=== PATIENT | male | born 1975 | race Caucasian/White ===

== ENCOUNTER 2020-02-20 03:12 | Inpatient (IN) | payer MEDICAID, SELFPAY ==
[2020-02-20] VITALS (17 sets, daily range): BP systolic 101–132; BP diastolic 61–77
[~2020-02-20] VITALS: Ht 182.9 cm; Wt 105.5 kg
[~2020-02-20 03:12] MED LIST: SYNT100T PO; SYNT25TA PO; ZYPR1TAB4 PO
[2020-02-20] MEDS ORDERED: LEVO125T4 PO (03:29)
[2020-02-20] MEDS ORDERED: ONDANSETRON 4MG/2ML VIAL IV ONE (03:30)
[2020-02-20] MEDS ORDERED: NS 1,000 ML IV ONE ×2 (03:30→04:30)
[2020-02-20] MEDS: MORPHINE 4 MG/ML 1ML VIAL/SYRINGE (J2270) IV PRN ×2 (03:33→04:04)
[2020-02-20 03:36] LABS: VENOUS BASE EXCESS -28.1 (-2.0-2.0); VENOUS O2 SATURATION 67.3 % (60.0-80.0); VENOUS PARTIAL PRESSURE CO2 21.3 mmHg (38.0-50.0); VENOUS STANDARD HCO3 5.5 MEQ/L; VENOUS TOTAL CO2 4.6 MEQ/L (24.0-28.0)
[2020-02-20 03:42] LABS: BASO # 0.2 10^3/uL (0.0-0.2); BASO % 0.6 % (0.0-1.0); EOS % 0.1 % (0.0-3.0); HEMATOCRIT 43.3 % (42.0-52.0); HEMOGLOBIN 13.3 g/dl (13.5-17.5); LYMPH # 1.6 10^3/uL (1.5-5.0); LYMPH % 6.1 % (24.0-44.0); MEAN CORPUSCULAR HGB CONC 30.7 g/dl (32.0-36.5); MEAN CORPUSCULAR VOLUME 94.5 fl (80.0-96.0); MONO # 2.2 10^3/uL (0.0-0.8); MONO % 8.6 % (0.0-5.0); NEUTROPHILS # 20.3 10^3/uL (1.5-8.5); NEUTROPHILS % 80.4 % (36.0-66.0); PLATELET COUNT, AUTOMATED 388 10^3/uL (150-450); RED BLOOD COUNT 4.58 10^6/uL (4.30-6.10); WHITE BLOOD COUNT 25.3 10^3/uL (4.0-10.0)
[2020-02-20 04:03] LABS: HEMOGLOBIN A1c 13.7 %
[2020-02-20 04:15] LABS: OSMOLALITY SERUM 333 MOSM/KG (275-295)
[2020-02-20 04:31] LABS: AMPHETAMINES LEVEL URINE NEGATIVE (NEGATIVE); BARBITURATES URINE NEGATIVE (NEGATIVE); BENZODIAZEPINES URINE NEGATIVE (NEGATIVE); CANNABINOIDS URINE NEGATIVE (NEGATIVE); COCAINE METABOLITE URINE NEGATIVE (NEGATIVE); METHADONE URINE NEGATIVE (NEGATIVE); OPIATES URINE NEGATIVE (NEGATIVE); PHENCYCLIDINE URINE NEGATIVE (NEGATIVE)
[2020-02-20 04:34] LABS: ALBUMIN 2.3 GM/DL (3.2-5.2); ALT/SGPT 15 U/L (12-78); BILIRUBIN,DIRECT 0.1 MG/DL (0.0-0.2); BILIRUBIN,TOTAL 0.4 MG/DL (0.2-1.0); BLOOD UREA NITROGEN 20 MG/DL (7-18); CARBON DIOXIDE LEVEL 6 MEQ/L (21-32); CHLORIDE LEVEL 105 MEQ/L (98-107); FREE T4 1.72 NG/DL (0.76-1.46); GLOMERULAR FILTRATION RATE > 60.0 (>60); LIPASE 689 U/L (73-393); SODIUM LEVEL 139 MEQ/L (136-145); TOTAL PROTEIN 4.7 GM/DL (6.4-8.2)
[2020-02-20 04:36] LABS: ACETONE/KETONE > 46.00 MG/DL (<2.81); CALCIUM LEVEL 5.9 MG/DL (8.5-10.1); ETHYL ALCOHOL (ETHANOL) < 0.003 % (0.000-0.010); GLUCOSE, FASTING 722 MG/DL (70-100)
[2020-02-20] MEDS ORDERED: KCL 10MEQ/100ML SWI (KRUN) 10 MEQ in IV 1 EA IV ONE (04:45)
[2020-02-20] MEDS ORDERED: POTASSIUM CHLORIDE 10 MEQ SR TABLET PO ONE (04:45)
[2020-02-20 04:46] LABS: MAGNESIUM LEVEL 1.6 MG/DL (1.8-2.4)
[2020-02-20] MEDS ORDERED: OLAN10TA2 PO (04:52)
[2020-02-20] MEDS ORDERED: med rec comment (04:54)
[2020-02-20] MEDS ORDERED: LORazepam 2 MG/ML VIAL (J2060) IV PRN (05:00)
[2020-02-20] MEDS ORDERED: MAG SULF 1GM/100ML (MAG RUN) 1 GM in IV 1 EA IV ONE (05:00)
--- NOTE | 2020-02-20 05:24 | IPNPDOC ---
Text Note Date of Service The patient was seen on 02/20/20. NOTE TIME OF SERVICE 610AM Mr. Prescott is a 43 yr old M w a PMH of alcohol abuse, hypothyroidism and Schizophrenia who is admitted for management of DKA. Vital Signs Date Time Temp Pulse Resp B/P (MAP) Pulse Ox O2 Delivery O2 Flow Rate FiO2 02/20/20 05:00 112/64 (80) 02/20/20 04:57 126 30 98 Room Air 02/20/20 04:18 97.2 I&O- Last 24 Hours up to 6 AM 02/20/20 06:00 Intake Total 2000 ml Balance 2000 ml Laboratory Tests 02/20/20 03:19 1. DKA Likely 2/2 new onset DM Plan: admit to ICU /NPO / will hold off starting Insulin drip until repeat BMP confirms K is above 3.3 / bc pH is <6.9 will start with 0.45 NS w K and bicarb @ a rate of 250ml per H / f/u blood cx / f/u accuchecks Q1H, BMP Q4H, venous PH Q4H, osmol Q4H, Mag Q4H, phosp Q4H / f/u A1C 2.SIRS Likely reactive -HR >90 /WBC >12 / RR >20 Plan: telemetry / Sepsis protocol w lactic acid/ no / IVF /f/u COVID 19, blood cx 3. Transaminitis Plan: trend LFTs / f/u liver US and hep panel 4. Hypothyroidism Plan: f/u TSH 5. Pseudohypocalcemia Ionized ca++ wnl. rest per 's H&P ALEXEY GUTIÉRREZ MD February 20, 2020 05:24
[2020-02-20] MEDS ORDERED: SODIUM BICARBONATE IV SCH ×2 (06:00)
[2020-02-20] MEDS ORDERED: [UNRECOGNIZED DRUG - OTHER] IV SCH ×2 (06:00)
[2020-02-20] MEDS ORDERED: KCL IV SCH ×2 (06:00)
[2020-02-20 06:22] LABS: VENOUS BASE EXCESS -26.1 (-2.0-2.0); VENOUS HCO3 5.8 MEQ/L (23.0-27.0); VENOUS O2 SATURATION 63.9 % (60.0-80.0); VENOUS PARTIAL PRESSURE CO2 28.9 mmHg (38.0-50.0); VENOUS PARTIAL PRESSURE O2 45.8 mmHg (30.0-50.0); VENOUS STANDARD HCO3 6.9 MEQ/L; VENOUS TOTAL CO2 6.7 MEQ/L (24.0-28.0)
[2020-02-20 06:36] LABS: INR 1.2; PARTIAL THROMBOPLASTIN TIME 25.8 SECONDS (25.0-38.4); PROTHROMBIN TIME 14.9 SECONDS (11.8-14.0)
[2020-02-20 08:09] LABS: BLOOD UREA NITROGEN 27 MG/DL (7-18); CALCIUM LEVEL 8.6 MG/DL (8.5-10.1); CARBON DIOXIDE LEVEL 8 MEQ/L (21-32); CHLORIDE LEVEL 92 MEQ/L (98-107); CREATININE FOR GFR 1.74 MG/DL (0.70-1.30); GLOMERULAR FILTRATION RATE 45.4 (>60); GLUCOSE, FASTING 930 MG/DL (70-100); POTASSIUM SERUM 5.6 MEQ/L (3.5-5.1); SODIUM LEVEL 130 MEQ/L (136-145); THYROID STIMULATING HORMONE 0.014 uIU/ML (0.358-3.740)
--- NOTE | 2020-02-20 08:09 | HPEPDOC ---
[facility] Medical History & Physical Date of Admission February 20, 2020 Date of Service: February 20, 2020 Attending Physician: ALEXEY GUTIÉRREZ MD History and Physical CHIEF COMPLAINT: Shortness of breath HISTORY OF PRESENT ILLNESS: Vladislav is a 44-year-old male with PMHx of hypothyroidism (on Synthroid) and significant mental illness with psychoses, who presented to the ED by EMS with the chief complaint of shortness of breath. The patient reports having 5 episodes of nonbloody emesis earlier in the overnight period, followed by progressively worsening shortness of breath to the point where he called 911. He states he's never had shortness of breath like this before and denies any known respiratory conditions. He denies any recent travel, changes in medications, changes in diet, or exposure to sick contacts. According to the ED, when EMS arrived at his home, he initially refused to be taken to the hospital and made multiple attempts to get himself off the gurney. Upon arrival to the ED, he was still relatively fidgety and using profanities. EMS reported his home to be in quite a disheveled state, with lots of spiders and strewn empty 2 L bottles of Coke. Currently he endorses associated increased work of breathing, chills, palpitations, lightheadedness without syncope, and moderate "burning" with his last few bowel movements. Repeatedly throughout the exam, he requested "copious amounts of physical water" and made mention to his career as a [employer] and associations with the [employer]. In the ED, he was found to be in diabetic ketoacidosis: vbg pH 6.89, PCO2 21.3, HCO3 52, anion gap 28, beta hydroxybutyrate greater than 46, lactic acid 5.4, A1c 13.7, serum osmolality 333, sGlu 722. He also had multiple electrolyte abnormalities: Potassium 3.0, calcium 5.9 (corrected calcium 7.4), magnesium 1.6. He had leukocytosis with normocytic anemia, along with other assorted metabolic abnormalities. He received one IV run each of KCl and mag sulfate, with oral KCl, along with two 1L NS boluses. Due to his significantly depressed potassium, insulin drip was deferred. He reports following with a PCP named Dr. Mihir Peña for whom we were unable to find any records. He has NKDA. PAST MEDICAL HISTORY: Hypothyroidism, on Synthroid Unspecified long history of mental illness with psychoses PAST SURGICAL HISTORY: Tonsillectomy SOCIAL HISTORY: Lives alone and according to previous records is the father of a 12-year-old son who lives with the son's mother in [place]. 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 Records indicate he reported being former ([employer]). Denies any current alcohol use but does endorse being a former social drinker. Denies any current or former tobacco use. Endorses former marijuana use in his 20s, as well as 5-6 times where he snorted cocaine. FAMILY HISTORY: Father: History of multiple MIs with associated unspecified heart disease ALLERGIES: Please see below. REVIEW OF SYSTEMS: CONSTITUTIONAL: Endorses chills and lightheadedness. Denies recent unintentional weight change, fever, weakness HEENT: Endorses chronic nasal congestion. Denies diplopia, blurry vision, eye pain, ear pain, tinnitus, dysphagia, odynophagia, sore throat, rhinorrhea CARDIOVASCULAR: Endorses palpitations. Denies chest pain, chest pressure, lower extremity swelling RESPIRATORY: Endorses shortness of breath that progressively worsened earlier today; endorses increased work of breathing. Denies pleuritic chest pain or cough GASTROINTESTINAL: Endorses 5 earlier episodes today of nonbloody emesis but denies feeling nauseous now; endorses "burning" sensation with recent bowel movements; endorses intermittent recent diarrhea. Denies abdominal pain or blood in the stool GENITOURINARY:. Denies dysuria or hematuria MUSCULOSKELETAL: Denies specific myalgias or arthralgias NEUROLOGICAL: Endorses lightheadedness. Denies dizziness, difficulty concentrating, numbness or paresthesias of extremities PSYCHIATRIC: Denies any recent significant change in mood or behavior ENDOCRINE: Endorses chills HOME MEDICATIONS: Please see below. PHYSICAL EXAMINATION: VITAL SIGNS: Temperature 97.2, pulse 122, respiratory rate 32, blood pressure 146/77, pulse oximetry 100 % on room air. GENERAL APPEARANCE: Disheveled and unkempt, obese male. Multiple times throughout exam, spoke of fanciful work and personal connections, as well as demanding drinking water. Prominent acetone-like aroma particularly from his breath. Alert and oriented 3. Sitting up in bed breathing relatively quickly. Appears older than stated age. HEENT: Normocephalic, atraumatic with areas of yellow dandruff/seborrheic dermatitis-appearing on scalp. Bilateral proptosis (right greater than left) with injected, nonicteric sclera. No conjunctival pallor. PERRLA. EOMI. Poor dentition with dry mucous membranes and crusting on tongue surface. Acetone breath. No pharyngeal erythema or exudate appreciated. No cervical or supraclavicular lymphadenopathy appreciated. Trachea is midline. CARDIOVASCULAR: Tachycardic rate, regular rhythm. +S1,S2., No murmurs or rubs appreciated. 2+ radial and posterior tibial pulses bilaterally. 3+ seconds capillary refill. LUNGS: Clear to auscultation bilaterally with no appreciated wheezes, crackles, or rhonchi. Tachypneic, able to slow his breathing when prompted. Symmetric chest expansion. Adequate tidal volume. Speaking full sentences. Breathing room air. ABDOMEN: Obese, soft, nontender, nondistended with no rigidity or guarding. Normoactive bowel sounds in all four quadrants. MUSCULOSKELETAL: 5/5 muscle strength UE and LE, b/l. EXTREMITIES: Lower extremities are free of edema. Delayed capillary refill. SKIN: Cool to the touch, especially hands. NEUROLOGICAL: Awake, alert and oriented to person, place, time, and situation. Cranial nerves III through XII grossly intact. Adequate finger to nose testing. For the most part responded to exam commands appropriately. PSYCHIATRIC: Had multiple instances throughout the exam where he spoke of fanciful entities concerning work and personal connections. Repeatedly requested "copious amounts of physical water" to drink. LABORATORY DATA: Please see below. IMAGING: Portable chest x-ray, 02/20/20: MICROBIOLOGY: Please see below. ASSESSMENT & PLAN: This is a 44-year-old male with PMHx of hypothyroidism on synthroid and a long history of mental illness with psychoses who presented to the emergency department via EMS in DKA and extensive electrolyte abnormalities. #Diabetic ketoacidosis -VBG: PH 6.89, PCO2 21.3, HCO3 52, anion gap 28, hydroxybutyrate > 46, sOsm 333 -sGlu 722, A1c 13.7; sK 3.0; UA 2+ ketones, 3+ Glu, 1+ Pro -most likely 2/2 newly diagnosed DM -s/p two 1L NS boluses -Insulin drip initially held due to low sK (3.0); once sK is 3.3 or greater, initiate 1/2NS w/ K and bicarbonate at 250mL/hr -NPO -f/u fsbs -BMP q4h, venous pH q4h, sOsm q4h, Phosphorus q4h, Mg q4h -f/u A1c -seizure protocol initiated #High anion gap metabolic acidosis 2/2 DKA #Positive SIRS criteria -tachypnea + leukocytosis + tachycardia; likely reactive to significant dka/met acidosis -WBC 25.3; Lactic acid 5.4 -s/p two 1L NS boluses -sepsis protocol -2 BCx pending #Normocytic microchromic anemia -Hgb 13.3, MCV 94.5, MCHC 30.7 #Multiple electrolyte abnormalities -Hypokalemia (3.0), hypomagnesemia (1.6), pseudohypocalcemia (sCa 5.9, corrected Ca 7.7, ionized Ca wnl) -s/p IV and PO KCl and IV Mag sulfate #Hypothyroidism -TSH 0.01, fT4 1.72 -reports taking his synthroid medication regularly as prescribed #Transaminitis -hepatitis and liver u/s ordered -f/u LFTs -elevated lipase (689) #Psychosocial issues -Significant history of mental illness with psychoses, without documented distinct diagnosis -Suggest PFS and psychiatric consultations once active medical problems resolve #DVT prophylaxis: Lovenox SC Disposition: Admit to intensive care unit for immediate DKA treatment, with consideration of eventual workup/treatment for psychosocial issues. Vital Signs Vital Signs Date Time Temp Pulse Resp B/P (MAP) Pulse Ox O2 Delivery O2 Flow Rate FiO2 02/20/20 05:46 117/57 (77) 02/20/20 05:45 125 24 99 Room Air 02/20/20 04:18 97.2 Laboratory Data Labs 24H Laboratory Tests 2 02/20/20 03:19: Immature Granulocyte % (Auto) 4.2H, Neutrophils (%) (Auto) 80.4H, Lymphocytes (%) (Auto) 6.1L, Monocytes (%) (Auto) 8.6H, Eosinophils (%) (Auto) 0.1, Basophil s (%) (Auto) 0.6, Neutrophils # (Auto) 20.3H, Lymphocytes # (Auto) 1.6, Monocytes # (Auto) 2.2H, Eosinophils # (Auto) 0.0, Basophils # (Auto) 0.2, Nucleated Red Blood Cells % (auto) 0.0, Blood Gas Bicarbonate Standard 5.5, Venous Blood pH 6.890L, Venous Blood Partial Pressure CO2 21.3L, Venous Blood Partial Pressure O2 52.0H, Venous Blood Total Carbon Dioxide 4.6L, Venous Blood HCO3 4.0L, Venous Blood Oxygen Saturation 67.3, Venous Blood Base Excess -28.1L, Anion Gap 28H, Glomerular Filtration Rate > 60.0, Estimated Mean Plasma Glucose 346H, Hemoglobin A1c 13.7, Osmolality 333H, Lactic Acid Level 5.4*H, Calcium Level 5.9*L, Magnesium Level 1.6L, Total Bilirubin 0.4, Direct Bilirubin 0.1, Aspartate Amino Transf (AST/SGOT) 6L, Alanine Aminotransferase (ALT/SGPT) 15, Alkaline Phosphatase 78, Total Protein 4.7L, Albumin 2.3L, Albumin/Globulin Ratio 0.96L, Lipase 689H, Thyroid Stimulating Hormone (TSH) 0.010L, Free Thyroxine 1.72H, Ethyl Alcohol Level < 0.003, B-Hydroxybutyrate > 46.00H 02/20/20 03:57: Urine Color STRAW, Urine Appearance CLEAR, Urine pH 5.0, Urine Specific [place] 1.022, Urine Protein 1+H, Urine Glucose (UA) 3+H, Urine Ketones 2+H, Urine Blood 1+H, Urine Nitrite NEGATIVE, Urine Bilirubin NEGATIVE, Urine Urobilinogen 0.2, Urine Leukocyte Esterase NEGATIVE, Urine WBC (Auto) 1, Urine RBC (Auto) 1, Urine Hyaline Casts (Auto) 0, Urine Bacteria (Auto) NEGATIVE, Urine Squamous Epithelial Cells 0, Urine Mucus (Auto) SMALL, Urine Sperm (Auto) , Urine Opiates Screen NEGATIVE, Urine Methadone Screen NEGATIVE, Urine Barbiturates Screen NEGATIVE, Urine Phencyclidine Screen NEGATIVE, Urine Amphetamines Screen NEGATIVE, Urine Benzodiazepines Screen NEGATIVE, Urine Cocaine Metabolite Screen NEGATIVE, Urine Cannabinoids Screen NEGATIVE 02/20/20 05:55: 02/20/20 06:15: CBC/BMP Laboratory Tests 02/20/20 03:19 Microbiology Microbiology 02/20/20 Blood Culture, Received Pending Home Medications Scheduled Levothyroxine Sodium (Levothyroxine Sodium) 125 Mcg Tablet, 125 MCG PO DAILY Olanzapine (Olanzapine) 10 Mg Tablet, 10 MG PO DAILY Miscellaneous Medications [med rec comment] unable to verify phamracy of choice or last dosage on olanzepine, patient was to short of breath to speak Allergies Coded Allergies: No Known Allergies (Verified , 06/24/12) A-FIB/CHADSVASC A-FIB History Current/History of A-Fib/PAF?: No Current PO Anticoag Therapy: No GME ATTESTATION GME ATTESTATION My faculty preceptor for this patient encounter was physically present during the encounter and was fully available. All aspects of the patient interview, examination, medical decision making process, and medical care plan development were reviewed and approved by the faculty preceptor. The faculty preceptor is aware and concurs with the plan as stated in the body of this note and will attest to such by his/her cosignature. ATTENDING NOTE I examined the patient for additional details please see my addendum dated 02/20/20 KATRINA BESS D.O. February 20, 2020 08:09 ALEXEY GUTIÉRREZ MD February 21, 2020 06:58
[2020-02-20 08:12] LABS: VENOUS BASE EXCESS -24.5 (-2.0-2.0); VENOUS HCO3 5.6 MEQ/L (23.0-27.0); VENOUS PARTIAL PRESSURE CO2 23.6 mmHg (38.0-50.0); VENOUS PARTIAL PRESSURE O2 45.1 mmHg (30.0-50.0); VENOUS PH 6.996 UNITS (7.330-7.430); VENOUS STANDARD HCO3 7.7 MEQ/L; VENOUS TOTAL CO2 6.4 MEQ/L (24.0-28.0)
[2020-02-20] MEDS ORDERED: SODIUM BICARBONATE 8.4% INJ 50 ML SYRINGE IV STA ×3 (08:44→12:21)
[2020-02-20] MEDS: NS 1,000 ML IV SCH ×2 (08:58→17:59)
[2020-02-20 08:59] LABS: CALCIUM LEVEL 8.2 MG/DL (8.5-10.1); CREATININE FOR GFR 1.79 MG/DL (0.70-1.30); GLOMERULAR FILTRATION RATE 43.9 (>60); MAGNESIUM LEVEL 2.7 MG/DL (1.8-2.4); PHOSPHORUS LEVEL 7.8 MG/DL (2.5-4.9); POTASSIUM SERUM 6.1 MEQ/L (3.5-5.1)
[2020-02-20] MEDS: ENOXAPARIN 40MG/0.4ML SYRINGE (J1650 PER 10MG) SC SCH (09:04)
--- NOTE | 2020-02-20 09:26 | REP ---
CHEST: REASON: Dyspnea. FINDINGS: The technique utilized in obtaining the radiograph has magnified the cardiac silhouette and accentuated the interstitial markings. The superior mediastinal structures are midline. The cardiac silhouette is unremarkable in size, shape, and position. The diaphragmatic surfaces of the lungs are regular, and the costophrenic angles are clear. The pulmonary gallegos are clear. The imaged osseous structures are intact. IMPRESSION: There is no acute cardiopulmonary disease. Electronically Signed by Matt Alberto DO 02/20/2020 10:37 A
--- NOTE | 2020-02-20 09:50 | ECGEPIP ---
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 Electronically Signed on 02-20-2020 9:49:55 EDT by Jose De Jesus Davis
[2020-02-20] MEDS ORDERED: SODIUM BICARBONATE 150 MEQ in D5W 1,000 ML IV SCH (10:00)
[2020-02-20] MEDS: INSULIN HUMAN REGULAR 100 UNITS in NS 99 ML IV SCH ×2 (10:06→20:16)
[2020-02-20] MEDS: INSULIN IV RATE CHANGE DOCUMENTATION ML/HR XX SCH ×9 (10:20→23:05)
--- NOTE | 2020-02-20 10:30 | REP ---
REASON FOR EXAM: Elevated liver enzymes. PRIORS: None. Multiple ultrasonographic images of the liver show the hepatic parenchymal echopattern to be within normal limits. There are no cystic or solid masses. There is no intrahepatic or extrahepatic ductal dilatation. The common bile duct measures between 4 and 5 mm in its greatest transverse dimension. Multiple ultrasonographic images of the gallbladder show no abnormalities. There are no choleliths. There is no pericholecystic edema. There is no gallbladder wall thickening. The imaged portion of the pancreas and right kidney are within normal limits. There is no free fluid in the right upper quadrant. IMPRESSION: Negative right upper quadrant ultrasound examination. Electronically Signed by Matt Alberto DO 02/20/2020 11:27 A
[2020-02-20 11:23] LABS: VENOUS BASE EXCESS -22.8 (-2.0-2.0); VENOUS HCO3 4.6 MEQ/L (23.0-27.0); VENOUS O2 SATURATION 88.5 % (60.0-80.0); VENOUS PARTIAL PRESSURE CO2 15.1 mmHg (38.0-50.0); VENOUS PARTIAL PRESSURE O2 66.2 mmHg (30.0-50.0); VENOUS PH 7.099 UNITS (7.330-7.430); VENOUS STANDARD HCO3 8.8 MEQ/L
[2020-02-20] MEDS ORDERED: LORazepam 2 MG/ML VIAL (J2060) IV STA (11:45)
[2020-02-20] MEDS ORDERED: LORazepam 2 MG/ML VIAL (J2060) As Ordered ONE (11:50)
[2020-02-20 12:04] LABS: CALCIUM LEVEL 9.1 MG/DL (8.5-10.1); CREATININE FOR GFR 1.57 MG/DL (0.70-1.30); GLOMERULAR FILTRATION RATE 51.1 (>60); MAGNESIUM LEVEL 2.7 MG/DL (1.8-2.4); PHOSPHORUS LEVEL 3.4 MG/DL (2.5-4.9); POTASSIUM SERUM 5.7 MEQ/L (3.5-5.1)
--- NOTE | 2020-02-20 12:20 | IPNPDOC ---
Date Seen The patient was seen on 02/20/20. Progress Note SUBJECTIVE: Potassium elevated at 5.6 and later 6.1, potassium and bicarb supplemented IVFs stopped. Bicarbonate defict 720. Pushed three 50 mg amp bicarb, started on bicarb fluids and NS fluids at 100 cc/hr. ANA worsened on repeat labs this AM. Phos and magnesium were elevated, monitoring closely. Patient had increased agitation and was given 2 mg IV ativan x 1 at 11:45 AM. Q4 hr labs, Q2 hr ABG. Patient confused, denies pain. OBJECTIVE: VITAL SIGNS: please see below PHYSICAL EXAMINATION: GENERAL APPEARANCE: Awake, alert but agitated and confused. Oriented x 1 HEENT: NC/AT, bilateral proptosis (right greater than left) with injected, nonicteric sclera. PERRLA. EOMI. Poor dentition, dry mucous membranes.Trachea is midline. CARDIOVASCULAR: Tachycardic rate, regular rhythm. +S1,S2., No murmurs or rubs LUNGS: CTAB, no w/r/r. Tachypneic ABDOMEN: Obese, soft, nontender, nondistended with no rigidity or guarding. Normoactive bowel sounds in all four quadrants. MUSCULOSKELETAL: 5/5 muscle strength UE and LE, b/l. EXTREMITIES: Lower extremities are free of edema. SKIN: Warm, poor skin turgor, no noticeable lesions, ulcers NEUROLOGICAL: Cranial nerves III through XII grossly intact. No focal deficits. LABORATORY DATA: Please see below. IMAGING: CXR: There is no acute cardiopulmonary disease. Liver US: Negative right upper quadrant ultrasound examination. MICROBIOLOGY: BCx pending UA neg ASSESSMENT: 44 y/o M male treating for AMS likely 2/2 to severe diabetic ketoa cidosis, dehydration, multiple electrolyte abnormality, questionable pancreatitis. PLAN: 1. Diabetic ketoacidosis (DKA), severe. Unknown underlying infection at this time, new DM diagnosis. AG metabolic acidosis. HbA1c >13. ABG showing slow improvement with addition of insulin gtt. S/p one amps bicarb but will give another two, last labs show bicarb still low at 6. C/w bicarbonate gtt for now. Normal saline at 100 cc/hr- when stop bicarb gtt then increase fluids. Q4 hr BMP, mag, phos with Q2hr ABG for now. Supplement electrolytes PRN. Q1hr finger sticks. 2. Altered mental status 2/2 to DKA, perhaps complicated by underlying mental health issues. C/w treatment above. 3. SIRS +. Abnormal VS and acidosis could just be from DKA; however, elevated lipase without abdominal pain, no CT done on admission cannot r/o pancreatitis as source of infection. Will complete CT when patient is stable to be taken to CT. UA neg, CXR neg, blood cultures pending. For now, c/w IVFs and treatment above. Holding off on empiric abx. 4. Acute kidney injury likely 2/2 to dehydration, prerenal etiology. C/w IVFs, monitor labs closely, avoid nephrotoxic medications. 5. Hyperkalemia likely 2/2 to KCL and potassium supplemented IVFs, ANA. Stopped these, start insulin gtt and will monitor closely on telemetry. 6. Hyperphosphatemia. 7.8 initially now 3.4. Monitor with Q4hr labs. 7. Pseudohypocalcemia. Corrected with albumin to 7.7. F/u CMP in AM. 8. Hypomagnesemia. Initially 1.6, supplemented and now 2.7 (H). F/u Q4hrs. 9. Pseudohyponatremia. Blood sugar 930 on arrival to ICU, corrected sodium 143. C/w NSS. 10. Lactic acidosis 2/2 to DKA. Improving with hydration slowly with most recent 3.1 from 5.4. F/u next labs in afternoon. 11. Normocytic microchromic anemia. No signs of acute bleeding. Monitor CBC daily. 12. Hyperthyroidism likely synthroid induced. Hx of hypothyroidism. TSH 0.010, possibly being overmedicated or taking more than prescribed? Holding for now, f/u FT4, T3 and decrease dose by 25 mcg when resuming medications. 13. Unspecified psychosis disorder. Unable to properly assess with acute mental status changes described above. 14 . DVT px. Lovenox SC. Disposition: C/w treatment above under ICU care. TOTAL AMOUNT OF ICU TIME SPENT: 65 MINS VS, I&O, 24H, Fishbone Vital Signs/I&O Vital Signs Date Time Temp Pulse Resp B/P (MAP) Pulse Ox O2 Delivery O2 Flow Rate FiO2 02/20/20 09:45 126 32 123/71 (88) 92 02/20/20 07:53 98.6 02/20/20 06:47 Room Air I&O- Last 24 Hours up to 6 AM 02/20/20 06:00 Intake Total 2200 ml Balance 2200 ml Laboratory Data 24H LABS Laboratory Tests 2 02/20/20 03:19: Immature Granulocyte % (Auto) 4.2H, Neutrophils (%) (Auto) 80.4H, Lymphocytes (%) (Auto) 6.1L, Monocytes (%) (Auto) 8.6H, Eosinophils (%) (Auto) 0.1, Basophils (%) (Auto) 0.6, Neutrophils # (Auto) 20.3H, Lymphocytes # (Auto) 1.6, Monocytes # (Auto) 2.2H, Eosinophils # (Auto) 0.0, Basophils # (Auto) 0.2, Nucleated Red Blood Cells % (auto) 0.0, Blood Gas Bicarbonate Standard 5.5, Ve nous Blood pH 6.890L, Venous Blood Partial Pressure CO2 21.3L, Venous Blood Partial Pressure O2 52.0H, Venous Blood Total Carbon Dioxide 4.6L, Venous Blood HCO3 4.0L, Venous Blood Oxygen Saturation 67.3, Venous Blood Base Excess -28.1L, Anion Gap 28H, Glomerular Filtration Rate > 60.0, Estimated Mean Plasma Glucose 346H, Hemoglobin A1c 13.7, Osmolality 333H, Lactic Acid Level 5.4*H, Calcium Level 5.9*L, Magnesium Level 1.6L, Total Bilirubin 0.4, Direct Bilirubin 0.1, Aspartate Amino Transf (AST/SGOT) 6L, Alanine Aminotransferase (ALT/SGPT) 15, Alkaline Phosphatase 78, Total Protein 4.7L, Albumin 2.3L, Albumin/Globulin Ratio 0.96L, Lipase 689H, Thyroid Stimulating Hormone (TSH) 0.010L, Free T hyroxine 1.72H, Ethyl Alcohol Level < 0.003, B-Hydroxybutyrate > 46.00H 02/20/20 03:57: Urine Color STRAW, Urine Appearance CLEAR, Urine pH 5.0, Urine Specific Platter 1.022, Urine Protein 1+H, Urine Glucose (UA) 3+H, Urine Ketones 2+H, Urine Blood 1+H, Urine Nitrite NEGATIVE, Urine Bilirubin NEGATIVE, Urine Urobilinogen 0.2, Urine Leukocyte Esterase NEGATIVE, Urine WBC (Auto) 1, Urine RBC (Auto) 1, Urine Hyaline Casts (Auto) 0, Urine Bacteria (Auto) NEGATIVE, Urine Squamous Epithelial Cells 0, Urine Mucus (Auto) SMALL, Urine Sperm (Auto) , Urine Opiates Screen NEGATIVE, Urine Methadone Screen NEGATIVE, Urine Barbiturates Screen NEGATIVE, Urine Phencyclidine Screen NEGATIVE, Urine Amphetamines Screen NEGATIVE, Urine Benzodiazepines Screen NEGATIVE, Urine Cocaine Metabolite Screen NEGATIVE, Urine Cannabinoids Screen NEGATIVE 02/20/20 05:55: Coronavirus (COVID-19)(PCR) NEGATIVE 02/20/20 06:15: Blood Gas Bicarbonate Standard 6.9, Venous Blood pH 6.920L, Venous Blood Partial Pressure CO2 28.9L, Venous Blood Partial Pressure O2 45.8, Venous Blood Total Carbon Dioxide 6.7L, Venous Blood HCO3 5.8L, Venous Blood Oxygen Saturation 63.9, Venous Blood Base Excess -26.1L, Anion Gap 30H, Glomerular Filtration Rate 45.4L, Calcium Level 8.6#, Thyroid Stimulating Hormone (TSH) 0.014L, Prothrombin Time 14.9H, Prothromb Time International Ratio 1.20, Activated Partial Thromboplast Time 25.8, Whole Blood Ionized Calcium 4.6 02/20/20 08:03: Blood Gas Puncture Site UNKNOWN, Blood Gas Bicarbonate Standard 7.7, Venous Blood pH 6.996L, Venous Blood Partial Pressure CO2 23.6L, Venous Blood Partial Pressure O2 45.1, Venous Blood Total Carbon Dioxide 6.4L, Venous Blood HCO3 5.6L, Venous Blood Oxygen Saturation 69.0, Venous Blood Base Excess -24.5L, Anion Gap 28H, Glomerular Filtration Rate 43.9L, Osmolality 348H, Calcium Level 8.2L, Phosphorus Level 7.8H, Magnesium Level 2.7H 02/20/20 10:13: Lactic Acid Followup at 4 Hours 3.1*H 02/20/20 10:14: Bedside Glucose Confirm (Misc) 721*H 02/20/20 11:15: Blood Gas Puncture Site UNKNOWN, Blood Gas Bicarbonate Standard 8.8, Venous Blood pH 7.099L, Venous Blood Partial Pressure CO2 15.1L, Venous Blood Partial Pressure O2 66.2H, Venous Blood Total Carbon Dioxide 5.0L, Venous Blood HCO3 4.6L, Venous Blood Oxygen Saturation 88.5H, Venous Blood Base Excess -22.8L CBC/BMP Laboratory Tests 02/20/20 03:19 02/20/20 06:15 02/20/20 08:03 Microbiology Microbiology 02/20/20 Blood Culture, Received Pending Current Medications Current Medications Medications (Trade) Dose Ordered Sig/Galina Route PRN Reason Start Time Stop Time Status Last Admin Dose Admin Enoxaparin Sodium (Lovenox) 40 mg DAILY SC 02/20/20 09:00 02/20/20 09:04 Home Med (Med Rec Complete!) ASDIRECTED XX 02/20/20 05:00 02/20/20 05:05 DC Insulin Human Regular 100 units/ Sodium Chloride 100 ml @ 10 mls/hr Q10H IV 02/20/20 10:00 02/20/20 10:06 Lorazepam (Ativan) 2 mg Q2HP PRN IV SEIZURES 02/20/20 05:00 Lorazepam (Ativan) 2 mg STAT STAT IV 02/20/20 11:45 02/20/20 11:46 DC 02/20/20 11:52 Morphine Sulfate (Morphine Sulfate Inj) 4 mg Q30M PRN IV SEVERE PAIN (PS 8-10) 02/20/20 03:30 02/20/20 04:05 DC 02/20/20 04:04 Non-Formulary Medication (Insulin Iv Rate Change Documentation ml/ Hr) ASDIRECTED XX 02/20/20 08:30 03/21/20 08:29 02/20/20 10:20 Sodium Bicarbonate 100 meq/Potassium Chloride/Sodium Chloride 1,100 ml @ 250 mls/hr Q4H24M IV 02/20/20 06:00 02/20/20 08:43 DC 02/20/20 06:12 Sodium Bicarbonate 150 meq/Dextrose/Water 1,150 ml @ 100 mls/hr [id number] IV 02/20/20 10:00 02/20/20 10:19 Sodium Bicarbonate (Sodium Bicarbonate) 50 meq STAT STAT IV 02/20/20 08:44 02/20/20 08:45 DC 02/20/20 08:57 Sodium Bicarbonate (Sodium Bicarbonate) 50 meq STAT STAT IV 02/20/20 12:21 02/20/20 12:24 DC Sodium Bicarbonate (Sodium Bicarbonate) 50 meq STAT STAT IV 02/20/20 12:21 02/20/20 12:24 DC Sodium Chloride 1,000 ml @ 100 mls/hr Q10H IV 02/20/20 09:00 02/20/20 08:58 Allergies Coded Allergies: No Known Allergies (Verified , 06/24/12) Zelda Prado MD February 20, 2020 12:20
[2020-02-20 13:25] LABS: ABG BASE EXCESS -14.9 (-2.0-2.0); ABG HCO3 7.4 MEQ/L (22.0-26.0); ABG O2 SATURATION 97.4 % (95.0-99.0); ABG PARTIAL PRESSURE O2 89.2 mmHg (75.0-100.0); ABG STANDARD HCO3 13.4 MEQ/L (22.0-26.0); ABG TOTAL CO2 7.8 MEQ/L (22.0-29.0); ABG pH (ARTERIAL) 7.345 UNITS (7.350-7.450)
[2020-02-20 13:28] LABS: ABG PARTIAL PRESSURE CO2 13.9 mmHg (35.0-45.0)
[2020-02-20 15:44] LABS: ABG HCO3 15.7 MEQ/L (22.0-26.0); ABG O2 SATURATION 97.3 % (95.0-99.0); ABG PARTIAL PRESSURE CO2 25.6 mmHg (35.0-45.0); ABG PARTIAL PRESSURE O2 87.9 mmHg (75.0-100.0); ABG STANDARD HCO3 18.8 MEQ/L (22.0-26.0); ABG TOTAL CO2 16.5 MEQ/L (22.0-29.0); ABG pH (ARTERIAL) 7.405 UNITS (7.350-7.450)
[2020-02-20 16:13] LABS: CALCIUM LEVEL 8.8 MG/DL (8.5-10.1); CREATININE FOR GFR 1.52 MG/DL (0.70-1.30); GLOMERULAR FILTRATION RATE 53.1 (>60); MAGNESIUM LEVEL 2.4 MG/DL (1.8-2.4); PHOSPHORUS LEVEL 0.7 MG/DL (2.5-4.9); POTASSIUM SERUM 3.8 MEQ/L (3.5-5.1)
[2020-02-20] MEDS ORDERED: POTASSIUM PHOSPHATE INJ 30 MMOL in D5W 500 ML IV ONE (18:00)
[2020-02-20 20:00] LABS: CALCIUM LEVEL 8.7 MG/DL (8.5-10.1); CREATININE FOR GFR 1.43 MG/DL (0.70-1.30); GLOMERULAR FILTRATION RATE 56.9 (>60); MAGNESIUM LEVEL 2.3 MG/DL (1.8-2.4); PHOSPHORUS LEVEL 0.7 MG/DL (2.5-4.9); POTASSIUM SERUM 3.7 MEQ/L (3.5-5.1)
[2020-02-20] MEDS: POTASSIUM CHLORIDE INJ 30 MEQ in D5W/0.45% SODIUM CHLORIDE 1,000 ML IV SCH (20:25)
[2020-02-20 21:16] LABS: ABG HCO3 21.7 MEQ/L (22.0-26.0); ABG O2 SATURATION 95.6 % (95.0-99.0); ABG PARTIAL PRESSURE CO2 34.3 mmHg (35.0-45.0); ABG PARTIAL PRESSURE O2 72.6 mmHg (75.0-100.0); ABG STANDARD HCO3 22.7 MEQ/L (22.0-26.0); ABG TOTAL CO2 22.8 MEQ/L (22.0-29.0); ABG pH (ARTERIAL) 7.419 UNITS (7.350-7.450)
[2020-02-20 23:46] LABS: OSMOLALITY SERUM 326 MOSM/KG (275-295)
[2020-02-21] VITALS (14 sets, daily range): BP systolic 90–130; BP diastolic 55–79
[2020-02-21 00:01] LABS: BLOOD UREA NITROGEN 20 MG/DL (7-18); CALCIUM LEVEL 8.3 MG/DL (8.5-10.1); CARBON DIOXIDE LEVEL 25 MEQ/L (21-32); CHLORIDE LEVEL 114 MEQ/L (98-107); GLOMERULAR FILTRATION RATE > 60.0 (>60); GLUCOSE, FASTING 186 MG/DL (70-100); MAGNESIUM LEVEL 2.2 MG/DL (1.8-2.4); PHOSPHORUS LEVEL 1.2 MG/DL (2.5-4.9); POTASSIUM SERUM 3.9 MEQ/L (3.5-5.1); SODIUM LEVEL 148 MEQ/L (136-145)
[2020-02-21] MEDS: POTASSIUM CHLORIDE INJ 30 MEQ in D5W/0.45% SODIUM CHLORIDE 1,000 ML IV SCH ×2 (00:21→04:12)
[2020-02-21] MEDS: LEVEMIR (INSULIN DETEMIR) 1 UNITS/0.01ML SC SCH ×2 (03:05→20:27)
[2020-02-21 03:52] LABS: BASO % 0.1 % (0.0-1.0); HEMATOCRIT 38.6 % (42.0-52.0); HEMOGLOBIN 13.2 g/dl (13.5-17.5); LYMPH % 5.2 % (24.0-44.0); MEAN CORPUSCULAR HEMOGLOBIN 28.9 pg (27.0-33.0); MEAN CORPUSCULAR HGB CONC 34.2 g/dl (32.0-36.5); MEAN CORPUSCULAR VOLUME 84.5 fl (80.0-96.0); MONO # 2.5 10^3/uL (0.0-0.8); MONO % 13.5 % (0.0-5.0); NEUTROPHILS % 80.7 % (36.0-66.0); PLATELET COUNT, AUTOMATED 307 10^3/uL (150-450); RED BLOOD COUNT 4.57 10^6/uL (4.30-6.10); WHITE BLOOD COUNT 18.5 10^3/uL (4.0-10.0)
[2020-02-21 05:50] LABS: BLOOD UREA NITROGEN 17 MG/DL (7-18); CALCIUM LEVEL 8.1 MG/DL (8.5-10.1); CARBON DIOXIDE LEVEL 24 MEQ/L (21-32); CHLORIDE LEVEL 114 MEQ/L (98-107); CREATININE FOR GFR 1.15 MG/DL (0.70-1.30); GLOMERULAR FILTRATION RATE > 60.0 (>60); GLUCOSE, FASTING 206 MG/DL (70-100); PHOSPHORUS LEVEL 1.4 MG/DL (2.5-4.9); POTASSIUM SERUM 3.8 MEQ/L (3.5-5.1); SODIUM LEVEL 145 MEQ/L (136-145)
[2020-02-21 06:06] LABS: ALT/SGPT 17 U/L (12-78); BILIRUBIN,TOTAL 0.5 MG/DL (0.2-1.0); TOTAL PROTEIN 5.8 GM/DL (6.4-8.2)
[2020-02-21 06:07] LABS: ALBUMIN 2.8 GM/DL (3.2-5.2)
[2020-02-21] MEDS ORDERED: ISOVUE-370 76% 100ML VIAL As Ordered ONE (08:12)
[2020-02-21] MEDS: K-PHOS ORIGINAL (POT.ACID PHOSPHATE) 500MG TAB PO SCH ×2 (09:18→20:26)
[2020-02-21] MEDS: ENOXAPARIN 40MG/0.4ML SYRINGE (J1650 PER 10MG) SC SCH (09:19)
[2020-02-21] MEDS: HumaLOG INSULIN (NovoLOG) PER UNIT SC SCH ×4 (09:19→20:28)
--- NOTE | 2020-02-21 09:33 | REP ---
REASON: Abdominal pain. PRIORS: None. CONTRAST: 100 mL Isovue 370. The lung bases are clear. The liver, gallbladder, spleen, pancreas, and adrenal glands are within normal limits. In the superior pole of the right kidney, there is a round 2 cm sized low density structure, which has slightly higher than water density Hounsfield unit readings. In the left kidney interpolar region anteriorly, there is a similar finding but measuring less than 1 cm, somewhat difficult to evaluate due to its size and secondary to respiratory motion artifact. In the inferior pole of the left kidney, there is an additional similar finding, which measures 1.3 cm, this too has somewhat higher than density water density Hounsfield unit readings but is also difficult to evaluate due to motion artifact. The abdominal aorta and paraaortic regions are within normal limits. The intra-abdominal and intrapelvic bowel loops and their mesenteries are within normal limits. No free fluid or free air is seen in the abdomen or pelvis. There is no intra-abdominal or intrapelvic mass or adenopathy. Bone window technique throughout the examination shows the osseous structures to be within normal limits for the patient's age. IMPRESSION: Likely bilateral renal cysts as described above. There is no evidence of acute intra-abdominal or intrapelvic disease. Electronically Signed by Matt Alberto DO 02/21/2020 10:10 A
[2020-02-21] MEDS: LEVOTHYROXINE 100MCG TABLET (0.1MG) PO SCH (10:00)
[2020-02-21] MEDS: OLANZapine 10 MG TAB PO SCH (10:01)
[2020-02-21 10:05] LABS: HEPATITIS B SURFACE ANTIGEN NEGATIVE (NEGATIVE)
[2020-02-21 10:21] LABS: PTH INTACT 23.6 PG/ML (18.5-88.0); TOTAL 25(OH) VITAMIN D 18.2 NG/ML (30.0-100.0)
[2020-02-21 10:33] LABS: HEPATITIS B CORE ANTIBODY IGM NEGATIVE (NEGATIVE)
[2020-02-21 10:37] LABS: HEPATITIS A ANTIBODY IGM NEGATIVE (NEGATIVE)
[2020-02-21] MEDS ORDERED: POTASSIUM PHOSPHATE INJ 15 MMOL in D5W 250 ML IV ONE (11:00)
[2020-02-21 12:20] LABS: LIPASE 59 U/L (73-393)
--- NOTE | 2020-02-21 12:26 | IPNPDOC ---
Date Seen The patient was seen on 02/21/20. Progress Note SUBJECTIVE: Phosphorus was still low this morning and is currently being replaced. CT abdomen and pelvis with IV contrast was done to rule out pancreatitis and it shows no acute intra-abdominal abdomen allergies. The patient was transitioned off of an insulin drip over the evening and we'll begin subcutaneous Levemir daily, insulin sliding scale with meals and consistent carb diet this morning. He has an overall flat affect and appears weak but is alert and oriented 3, denies chest pain, shortness of breath, fevers, chills, nausea or vomiting. OBJECTIVE: VITAL SIGNS: please see below PHYSICAL EXAMINATION: GENERAL APPEARANCE: Sitting up in bed, awake alert oriented 3 HEENT: NC/AT, bilateral proptosis (right greater than left) PERRLA. EOMI. Poor dentition CARDIOVASCULAR: Rate and rhythm regular. +S1,S2., No murmurs or rubs LUNGS: CTAB, no w/r/r. ABDOMEN: Obese, soft, nontender, nondistended with no rigidity or guarding. Normoactive bowel sounds in all four quadrants. MUSCULOSKELETAL: 5/5 muscle strength UE and LE, b/l. EXTREMITIES: Lower extremities are free of edema. SKIN: Warm, normal skin turgor, no noticeable lesions, ulcers NEUROLOGICAL: Cranial nerves III through XII grossly intact. No focal deficits. LABORATORY DATA: Please see below. IMAGING: CT abdomen and pelvis with IV contrast: Likely bilateral renal cysts as described above. There is no evidence of acute intra-abdominal or intrapelvic disease. MICROBIOLOGY: BCx 1 set: No growth Blood cultures 2 sets: Drawn, pending results UA neg ASSESSMENT: 44 y/o M male treating for AMS likely 2/2 to severe diabetic ketoacidosis, dehydration, multiple electrolyte abnormalities. PLAN: 1. Diabetic ketoacidosis (DKA), severe- resolved. Diabetes mellitus type 2, uncontrolled is a new diagnosis. At this time not suspicious for underlying infection, awaiting blood culture results however. HbA1c >13. Continue with levemir QAM, insulin sliding scale, consistent carbohydrate diet. Patient will need education by prosthodontist/educator for this diagnosis, education by nursing for fingersticks and insulin administration. Patient will also need glucometer, lancets, alcohol swabs and test strips on discharge as well. He would also benefit from being set up with an histology teacher as outpatient prior to [facility] if possible. 2. Altered mental status 2/2 to DKA. Resolved. Sitter DC'd. 3. SIRS +. F/u blood cx. CT abd/pelvis, UA and CXR neg. If blood cx neg, abnormal VS, leukocytosis likely 2/2 to DKA. Lactic now wnl. C/w IVFs and treatment above. 4. Hypophosphatemia. 1.4 this AM. Started on K phos 500 PO BID and given 15 MMOL potassium phosphate IV in addition. F/u noon labs. 5. Acute kidney injury likely 2/2 to dehydration. Resolved. Improved with IVFs. 6. Hyperkalemia likely 2/2 to KCL and potassium supplemented IVFs, ANA. Resolved. 7. Hypomagnesemia. Resolved. 8. Lactic acidosis 2/2 to DKA.- Resolved. 9. Normocytic microchromic anemia. No signs of acute bleeding. Monitor CBC d aily. 10. Hyperthyroidism likely synthroid induced. Hx of hypothyroidism. TSH 0.010. Started on levothyroxine at lowered dose. 11. Unspecified psychosis disorder. Stable. 12 . DVT px. Lovenox SC. Disposition: Discharging from ICU today to med/surg with telemetery. TOTAL AMOUNT OF ICU TIME SPENT: 35 MINS VS, I&O, 24H, [facility] Vital Signs/I&O Vital Signs Date Time Temp Pulse Resp B/P (MAP) Pulse Ox O2 Delivery O2 Flow Rate FiO2 02/21/20 08:00 99.3 100 20 130/70 (90) 99 Room Air I&O- Last 24 Hours up to 6 AM 02/21/20 06:00 Intake Total 5231 ml Output Total 4195 ml Balance 1036 ml Laboratory Data 24H LABS Laboratory Tests 2 02/20/20 12:02: Bedside Glucose (Misc Panel) 465H 02/20/20 13:04: Bedside Glucose (Misc Panel) 404H 02/20/20 13:13: Blood Gas Bicarbonate Standard 13.4L, Arterial Blood pH 7.345L, Arterial Blood Partial Pressure CO2 13.9*L, Arterial Blood Partial Pressure O2 89.2, Arterial Blood Total CO2 7.8L, Arterial Blood HCO3 7.4L, Arterial Blood Base Excess - 14.9L, Arterial Blood Oxygen Saturation 97.4 02/20/20 14:01: Bedside Glucose (Misc Panel) 354H 02/20/20 15:02: Bedside Glucose (Misc Panel) 289H 02/20/20 15:32: Anion Gap 18H, Glomerular Filtration Rate 53.1L, Osmolality 332H, Lactic Acid Level 1.6, Calcium Level 8.8, Phosphorus Level 0.7#L, Magnesium Level 2.4 02/20/20 15:37: Blood Gas Bicarbonate Standard 18.8L, Arterial Blood pH 7.405, Arterial Blood Partial Pressure CO2 25.6L, Arterial Blood Partial Pressure O2 87.9, Arterial Blood Total CO2 16.5L, Arterial Blood HCO3 15.7L, Arterial Blood Base Excess - 7.0L, Arterial Blood Oxygen Saturation 97.3 02/20/20 17:08: Bedside Glucose (Misc Panel) 232H 02/20/20 18:04: Bedside Glucose (Misc Panel) 221H 02/20/20 19:04: Bedside Glucose (Misc Panel) 194H 02/20/20 19:21: Anion Gap 10, Glomerular Filtration Rate 56.9L, Calcium Level 8.7, Phosphorus Level 0.7L, Magnesium Level 2.3 02/20/20 20:13: Bedside Glucose (Misc Panel) 280H 02/20/20 21:05: Bedside Glucose (Misc Panel) 173H 02/20/20 21:08: Blood Gas Bicarbonate Standard 22.7, Arterial Blood pH 7.419, Arterial Blood Partial Pressure CO2 34.3L, Arterial Blood Partial Pressure O2 72.6L, Arterial Blood Total CO2 22.8, Arterial Blood HCO3 21.7L, Arterial Blood Base Excess - 2.0, Arterial Blood Oxygen Saturation 95.6 02/20/20 22:05: Bedside Glucose (Misc Panel) 212H 02/20/20 23:03: Bedside Glucose (Misc Panel) 194H 02/20/20 23:15: Anion Gap 9, Glomerular Filtration Rate > 60.0, Osmolality 326H, Calcium Level 8.3L, Phosphorus Level 1.2#L, Magnesium Level 2.2 02/21/20 00:02: Bedside Glucose (Misc Panel) 187H 02/21/20 01:02: Bedside Glucose (Misc Panel) 198H 02/21/20 02:17: Bedside Glucose (Misc Panel) 191H 02/21/20 03:01: Bedside Glucose (Misc Panel) 191H 02/21/20 03:41: Immature Granulocyte % (Auto) 0.5, Neutrophils (%) (Auto) 80.7H, Lymphocytes (%) (Auto) 5.2L, Monocytes (%) (Auto) 13.5H, Eosinophils (%) (Auto) 0.0, Basophils (%) (Auto) 0.1, Neutrophils # (Auto) 15.0H, Lymphocytes # (Auto) 1.0L, Monocytes # (Auto) 2.5H, Eosinophils # (Auto) 0.0, Basophils # (Auto) 0.0, Nucleated Red Blood Cells % (auto) 0.0, Anion Gap 7L, Glomerular Filtration Rate > 60.0, Lactic Acid Level 1.0, Calcium Level 8.1L, Phosphorus Level 1.4L, Magnesium Level 2.0, Total Bilirubin 0.5, Aspartate Amino Transf (AST/SGOT) 8, Alanine Aminotransferase (ALT/SGPT) 17, Alkaline Phosphatase 83, Total Protein 5.8#L, Albumin 2.8#L, Albumin/Globulin Ratio 0.93L 02/21/20 03:59: Bedside Glucose (Misc Panel) 195H 02/21/20 05:08: Bedside Glucose (Misc Panel) 192H 02/21/20 08:06: Bedside Glucose (Misc Panel) 216H 02/21/20 11:31: Bedside Glucose (Misc Panel) 329H CBC/BMP Laboratory Tests 02/20/20 15:32 02/20/20 19:21 02/20/20 23:15 02/21/20 03:41 Microbiology Microbiology 02/21/20 Blood Culture, Received Pending 02/21/20 Blood Culture, Received Pending 02/20/20 Blood Culture - Preliminary, Resulted No growth after 24 hours . All specim... Current Medications Current Medications Medications (Trade) Dose Ordered Sig/Galina Route PRN Reason Start Time Stop Time Status Last Admin Dose Admin Enoxaparin Sodium (Lovenox) 40 mg DAILY SC 02/20/20 09:00 02/21/20 09:19 Home Med (Med Rec Complete!) ASDIRECTED XX 02/20/20 05:00 02/20/20 05:05 DC Insulin Detemir (Levemir Insulin) 20 units DAILY@2100 SC 02/20/20 21:00 02/21/20 03:05 Insulin Human Lispro (HumaLOG INSULIN) See Protocol Table AC SC 02/21/20 07:30 02/21/20 11:40 Insulin Human Lispro (HumaLOG INSULIN) See Protocol Table QHS ND 02/21/20 21:00 Insulin Human Regular 100 units/ Sodium Chloride 100 ml @ 10 mls/hr Q10H IV 02/20/20 10:00 02/21/20 04:24 DC 02/20/20 20:16 Levothyroxine Sodium (Synthroid) 100 mcg DAILY@06 PO 02/21/20 06:00 02/21/20 10:00 Lorazepam (Ativan) 2 mg Q2HP PRN IV SEIZURES 02/20/20 05:00 Lorazepam (Ativan) 2 mg STAT STAT IV 02/20/20 11:45 02/20/20 11:46 DC 02/20/20 11:52 Morphine Sulfate (Morphine Sulfate Inj) 4 mg Q30M PRN IV SEVERE PAIN (PS 8-10) 02/20/20 03:30 02/20/20 04:05 DC 02/20/20 04:04 Non-Formulary Medication (Insulin Iv Rate Change Documentation ml/ Hr) ASDIRECTED XX 02/20/20 08:30 02/21/20 06:21 DC 02/20/20 23:05 Olanzapine (ZyPREXA) 10 mg DAILY PO 02/21/20 09:00 02/21/20 10:01 Potassium Chloride 30 meq/ Dextrose/Sodium Chloride 1,015 ml @ 250 mls/hr Q4H4M IV 02/20/20 19:15 02/21/20 04:24 DC 02/21/20 04:12 Potassium Phosphate (K-Phos Original) 500 mg BID PO 02/21/20 09:00 02/22/20 00:00 02/21/20 09:18 Sodium Bicarbonate 100 meq/Potassium Chloride/Sodium Chloride 1,100 ml @ 250 mls/hr Q4H24M IV 02/20/20 06:00 02/20/20 08:43 DC 02/20/20 06:12 Sodium Bicarbonate 150 meq/Dextrose/Water 1,150 ml @ 100 mls/hr [id number] IV 02/20/20 10:00 02/20/20 16:39 DC 02/20/20 10:19 Sodium Bicarbonate (Sodium Bicarbonate) 50 meq STAT STAT IV 02/20/20 08:44 02/20/20 08:45 DC 02/20/20 08:57 Sodium Bicarbonate (Sodium Bicarbonate) 50 meq STAT STAT IV 02/20/20 12:21 02/20/20 12:24 DC 02/20/20 12:28 Sodium Bicarbonate (Sodium Bicarbonate) 50 meq STAT STAT IV 02/20/20 12:21 02/20/20 12:24 DC 02/20/20 12:32 Sodium Chloride 1,000 ml @ 150 mls/hr Q6H40M IV 02/20/20 09:00 02/20/20 19:17 DC 02/20/20 17:59 Allergies Coded Allergies: No Known Allergies (Verified , 06/24/12) Zelda Prado MD February 21, 2020 12:26
[2020-02-22] MEDS ORDERED: NEUTRA-PHOS 1.5 GM PACKET PO SCH (05:30)
[2020-02-22 05:49] LABS: HEMATOCRIT 37.3 % (42.0-52.0); HEMOGLOBIN 12.5 g/dl (13.5-17.5); MEAN CORPUSCULAR HEMOGLOBIN 29.1 pg (27.0-33.0); MEAN CORPUSCULAR HGB CONC 33.5 g/dl (32.0-36.5); MEAN CORPUSCULAR VOLUME 86.9 fl (80.0-96.0); PLATELET COUNT, AUTOMATED 227 10^3/uL (150-450); RED BLOOD COUNT 4.29 10^6/uL (4.30-6.10); WHITE BLOOD COUNT 9.9 10^3/uL (4.0-10.0)
[2020-02-22] MEDS: LEVOTHYROXINE 100MCG TABLET (0.1MG) PO SCH (05:55)
[2020-02-22 06:00] VITALS: BP 116/82
[2020-02-22 06:18] LABS: ALBUMIN 2.7 GM/DL (3.2-5.2); ALT/SGPT 17 U/L (12-78); BILIRUBIN,TOTAL 0.6 MG/DL (0.2-1.0); BLOOD UREA NITROGEN 11 MG/DL (7-18); CALCIUM LEVEL 8.5 MG/DL (8.5-10.1); CARBON DIOXIDE LEVEL 27 MEQ/L (21-32); CHLORIDE LEVEL 106 MEQ/L (98-107); CREATININE FOR GFR 0.79 MG/DL (0.70-1.30); GLOMERULAR FILTRATION RATE > 60.0 (>60); GLUCOSE, FASTING 209 MG/DL (70-100); PHOSPHORUS LEVEL 2.8 MG/DL (2.5-4.9); POTASSIUM SERUM 3.6 MEQ/L (3.5-5.1); SODIUM LEVEL 142 MEQ/L (136-145); TOTAL PROTEIN 5.6 GM/DL (6.4-8.2)
[2020-02-22] MEDS: OLANZapine 10 MG TAB PO SCH (08:35)
[2020-02-22] MEDS: ENOXAPARIN 40MG/0.4ML SYRINGE (J1650 PER 10MG) SC SCH (08:36)
[2020-02-22] MEDS: HumaLOG INSULIN (NovoLOG) PER UNIT SC SCH ×4 (08:36→20:37)
--- NOTE | 2020-02-22 11:23 | IPNPDOC ---
Subjective Date Seen The patient was seen on 02/22/20. Subjective Chief Complaint/HPI Patient is comfortable offers no new complaints at the present time General: Denies: ROS Unobtainable, Chills, Night Sweats, Fatigue, Malaise, Normal Appetite, Other Symptoms Constitutional: Denies: Chills, Fever, Malaise, Night Sweats, Weakness, Fatigue, Weight Loss, Lethargy, Other Pulmonary: Denies: Dyspnea, Cough, Pleuritic Chest Pain, Other Symptoms Cardiovascular: Denies: Chest Pain, Palpitations, Orthopnea, Paroxysmal Noc. Dyspnea, Edema, Lt Headedness, Other Symptoms Gastrointestinal: Denies: Nausea, Vomiting, Abdominal Pain, Diarrhea, Constipation, Melena, Hematochezia, Other Symptoms Musculoskeletal: Denies: Neck Pain, Back Pain, Shoulder Pain, Arm Pain, Hand Pain, Leg Pain, Foot Pain, Joint Pain, Muscle Pain, Spasms, Other Symptoms Neurological: Denies: Weakness, Numbness, Incoordination, Change in speech, Confusion, Seizures, Other Symptoms Objective Physical Examination General Exam: Positive: Alert, Cooperative Eye Exam: Positive: PERRLA, Conjunctiva & lids normal ENT Exam: Positive: Atraumatic, Mucous membr. moist/pink Neck Exam: Positive: Supple Chest Exam: Positive: Clear to auscultation, Normal air movement Heart Exam: Positive: Rate Normal, Normal S1, Normal S2 Abdomen Exam: Positive: Normal bowel sounds, Soft Skin Exam: Positive: Nl turgor and temperature Neuro Exam: Positive: Strength at 5/5 X4 ext, Sensation Intact, Cranial Nerves 3-12 NL Assessment /Plan Problems (1) Diabetic ketoacidosis Status: Resolved Problem Text: Diabetic ketoacidosis (DKA), severe- resolved. Diabetes mellitus type 2, uncontrolled is a new diagnosis. At this time not suspicious for underlying infection, awaiting blood culture results however. HbA1c >13. Continue with levemir QAM, insulin sliding scale, consistent carbohydrate diet. Patient will need education by music educator for this diagnosis, education by nursing for fingersticks and insulin administration. Patient will also need glucometer, lancets, alcohol swabs and test strips on discharge as well. Patient needs teaching for self injection of insulin. Once discharged Discussed with social work was the outpatient meds insulin and diabetic supplies arranged that he will be discharged home (2) Hypothyroidism Status: Chronic Problem Text: Continue Synthroid as per orders Plan/VTE VTE Prophylaxis Ordered?: Yes VS, I&O, 24H, Fishbone Vital Signs/I&O Vital Signs Date Time Temp Pulse Resp B/P (MAP) Pulse Ox O2 Delivery O2 Flow Rate FiO2 02/22/20 06:00 98.3 92 17 116/82 (93) 97 Room Air I&O- Last 24 Hours up to 6 AM 02/22/20 06:00 Intake Total 3808 ml Output Total 2075 ml Balance 1733 ml Laboratory Data 24H LABS Laboratory Tests 2 02/21/20 11:31: Bedside Glucose (Misc Panel) 329H 02/21/20 16:35: Bedside Glucose (Misc Panel) 213H 02/21/20 19:52: Phosphorus Level 1.9#L 02/21/20 20:16: Bedside Glucose (Misc Panel) 323H 02/22/20 05:18: Nucleated Red Blood Cells % (auto) 0.0, Anion Gap 9, Glomerular Filtration Rate > 60.0, Calcium Level 8.5, Phosphorus Level 2.8#, Total Bilirubin 0.6, Aspartate Amino Transf (AST/SGOT) 9, Alanine Aminotransferase (ALT/SGPT) 17, Alkaline Phosphatase 82, Total Protein 5.6L, Albumin 2.7L, Albumin/Globulin Ratio 0.93L CBC/BMP Laboratory Tests 02/22/20 05:18 Microbiology Microbiology 02/21/20 Blood Culture - Preliminary, Resulted No growth after 24 hours . All specim... 02/21/20 Blood Culture - Preliminary, Resulted No growth after 24 hours . All specim... 02/20/20 Blood Culture - Preliminary, Resulted No Growth after 48 hours. All Specime... VESNA POLLARD MD February 22, 2020 11:23
[2020-02-22 14:00] VITALS: BP 116/80
[2020-02-22] MEDS: LEVEMIR (INSULIN DETEMIR) 1 UNITS/0.01ML SC SCH (20:37)
[2020-02-22 22:00] VITALS: BP 120/81
[2020-02-23 06:00] VITALS: BP 124/81
[2020-02-23] MEDS: LEVOTHYROXINE 100MCG TABLET (0.1MG) PO SCH (06:07)
[2020-02-23 06:12] LABS: BASO % 0.3 % (0.0-1.0); EOS # 0.1 10^3/uL (0.0-0.5); HEMATOCRIT 37.8 % (42.0-52.0); HEMOGLOBIN 12.5 g/dl (13.5-17.5); LYMPH # 1.7 10^3/uL (1.5-5.0); LYMPH % 27.2 % (24.0-44.0); MEAN CORPUSCULAR HEMOGLOBIN 29.1 pg (27.0-33.0); MEAN CORPUSCULAR HGB CONC 33.1 g/dl (32.0-36.5); MEAN CORPUSCULAR VOLUME 87.9 fl (80.0-96.0); MONO # 0.7 10^3/uL (0.0-0.8); MONO % 10.9 % (0.0-5.0); NEUTROPHILS # 3.7 10^3/uL (1.5-8.5); NEUTROPHILS % 60.4 % (36.0-66.0); PLATELET COUNT, AUTOMATED 205 10^3/uL (150-450); WHITE BLOOD COUNT 6.2 10^3/uL (4.0-10.0)
[2020-02-23 06:32] LABS: ALBUMIN 2.6 GM/DL (3.2-5.2); ALT/SGPT 17 U/L (12-78); BILIRUBIN,TOTAL 0.8 MG/DL (0.2-1.0); BLOOD UREA NITROGEN 8 MG/DL (7-18); CALCIUM LEVEL 8.4 MG/DL (8.5-10.1); CARBON DIOXIDE LEVEL 29 MEQ/L (21-32); CHLORIDE LEVEL 106 MEQ/L (98-107); CREATININE FOR GFR 0.56 MG/DL (0.70-1.30); GLOMERULAR FILTRATION RATE > 60.0 (>60); GLUCOSE, FASTING 208 MG/DL (70-100); PHOSPHORUS LEVEL 3.8 MG/DL (2.5-4.9); POTASSIUM SERUM 3.7 MEQ/L (3.5-5.1); SODIUM LEVEL 143 MEQ/L (136-145); TOTAL PROTEIN 5.5 GM/DL (6.4-8.2)
[2020-02-23] MEDS: HumaLOG INSULIN (NovoLOG) PER UNIT SC SCH ×4 (08:36→21:04)
[2020-02-23] MEDS: ENOXAPARIN 40MG/0.4ML SYRINGE (J1650 PER 10MG) SC SCH (08:37)
[2020-02-23] MEDS: OLANZapine 10 MG TAB PO SCH (08:37)
--- NOTE | 2020-02-23 10:06 | IPNPDOC ---
Subjective Date Seen The patient was seen on 02/23/20. Subjective Chief Complaint/HPI Patient is comfortable in no distress, patient does not want to take insulin as per patient, he is very scared of needles and bedside. He cannot give himself secondary to fears and he is unable to afford insulin. Patient would like to try oral hypoglycemic agents first. General: Denies: ROS Unobtainable, Chills, Night Sweats, Fatigue, Malaise, Normal Appetite, Other Symptoms Constitutional: Denies: Chills, Fever, Malaise, Night Sweats, Weakness, Fatigue, Weight Loss, Lethargy, Other Pulmonary: Denies: Dyspnea, Cough, Pleuritic Chest Pain, Other Symptoms Cardiovascular: Denies: Chest Pain, Palpitations, Orthopnea, Paroxysmal Noc. Dyspnea, Edema, Lt Headedness, Other Symptoms Gastrointestinal: Denies: Nausea, Vomiting, Abdominal Pain, Diarrhea, Constipation, Melena, Hematochezia, Other Symptoms Genitourinary: Denies: Dysuria, Frequency, Incontinence, Hematuria, Retention, Other Symptoms Musculoskeletal: Denies: Neck Pain, Back Pain, Shoulder Pain, Arm Pain, Hand Pain, Leg Pain, Foot Pain, Joint Pain, Muscle Pain, Spasms, Other Symptoms Neurological: Denies: Weakness, Numbness, Incoordination, Change in speech, Confusion, Seizures, Other Symptoms Objective Physical Examination General Exam: Positive: Alert, Cooperative Eye Exam: Positive: PERRLA, Conjunctiva & lids normal ENT Exam: Positive: Atraumatic, Mucous membr. moist/pink Neck Exam: Positive: Supple Chest Exam: Positive: Clear to auscultation, Normal air movement Heart Exam: Positive: Rate Normal, Normal S1, Normal S2 Abdomen Exam: Positive: Normal bowel sounds, Soft Skin Exam: Positive: Nl turgor and temperature Neuro Exam: Positive: Strength at 5/5 X4 ext, Sensation Intact, Cranial Nerves 3-12 NL Assessment /Plan Problems (1) Diabetic ketoacidosis Status: Resolved Problem Text: Diabetic ketoacidosis (DKA), severe- resolved. Diabetes mellitus type 2, uncontrolled is a new diagnosis. At this time not suspicious for underlying infection, awaiting blood culture results however. HbA1c >13. Continue with levemir QAM, insulin sliding scale, consistent carbohydrate diet. Patient will need education by tobacco prevention health educator for this diagnosis, education by nursing for fingersticks and insulin administration. Patient is refusing to take insulin as per he is uncomfortable and fearful of needles as well as injection and symmetric. And as per patient, he is unable to afford the insulin and he is not going to get it as an outpatient. Patient would like to be tried on oral hypoglycemic agents first, which according patient he will be more compliant and able to afford. DC detemir insulin Start Glucophage ex are 750 by mouth daily Also add Glucotrol XL 5 mg by mouth daily Fingerstick blood sugar every before meals and at bedtime with coverage Will monitor patient's fingerstick blood sugar and adjust dose of oral hypoglycemic agents. All risks off oral hypoglycemic agents including poor sugar control, hypoglycemic events, other side effects were explained to him and he understands very well and wishes to continue with Glucotrol and Glucophage (2) Hypothyroidism Status: Chronic Problem Text: Continue Synthroid as per orders Plan/VTE VTE Prophylaxis Ordered?: Yes VS, I&O, 24H, Fishbone Vital Signs/I&O Vital Signs Date Time Temp Pulse Resp B/P (MAP) Pulse Ox O2 Delivery O2 Flow Rate FiO2 02/23/20 06:00 97.6 76 18 124/81 (95) 97 Room Air I&O- Last 24 Hours up to 6 AM 02/23/20 06:00 Intake Total 3256 ml Output Total 600 ml Balance 2656 ml Laboratory Data 24H LABS Laboratory Tests 2 02/22/20 11:39: Bedside Glucose (Misc Panel) 311H 02/22/20 16:32: Bedside Glucose (Misc Panel) 247H 02/22/20 20:27: Bedside Glucose (Misc Panel) 305H 02/23/20 05:32: Immature Granulocyte % (Auto) 0.2, Neutrophils (%) (Auto) 60.4, Lymphocytes (%) (Auto) 27.2, Monocytes (%) (Auto) 10.9H, Eosinophils (%) (Auto) 1.0, Basophils (%) (Auto) 0.3, Neutrophils # (Auto) 3.7, Lymphocytes # (Auto) 1.7, Monocytes # (Auto) 0.7, Eosinophils # (Auto) 0.1, Basophils # (Auto) 0.0, Nucleated Red Blood Cells % (auto) 0.0, Anion Gap 8, Glomerular Filtration Rate > 60.0, Calcium Level 8.4L, Phosphorus Level 3.8#, Total Bilirubin 0.8, Aspartate Amino Transf (AST/SGOT) 6L, Alanine Aminotransferase (ALT/SGPT) 17, Alkaline Phosphatase 74, Total Protein 5.5L, Albumin 2.6L, Albumin/Globulin Ratio 0.90L CBC/BMP Laboratory Tests 02/23/20 05:32 Microbiology Microbiology 02/21/20 Blood Culture - Preliminary, Resulted No Growth after 48 hours. All Specime... 02/21/20 Blood Culture - Preliminary, Resulted No Growth after 48 hours. All Specime... 02/20/20 Blood Culture - Preliminary, Resulted No Growth after 72 hours. All specime... VESNA POLLARD MD February 23, 2020 10:06
[2020-02-23 14:00] VITALS: BP 127/86
[2020-02-23] MEDS: metFORMIN XR 750 MG TAB PO SCH (18:02)
[2020-02-23] MEDS: glipiZIDE XL 5 MG TABCR PO SCH (18:02)
[2020-02-23 22:00] VITALS: BP 122/85
[2020-02-24] MEDS: LEVOTHYROXINE 100MCG TABLET (0.1MG) PO SCH (05:58)
[2020-02-24 06:21] LABS: HEMATOCRIT 38.2 % (42.0-52.0); HEMOGLOBIN 12.7 g/dl (13.5-17.5); MEAN CORPUSCULAR HEMOGLOBIN 29.5 pg (27.0-33.0); MEAN CORPUSCULAR HGB CONC 33.2 g/dl (32.0-36.5); MEAN CORPUSCULAR VOLUME 88.6 fl (80.0-96.0); PLATELET COUNT, AUTOMATED 203 10^3/uL (150-450); RED BLOOD COUNT 4.31 10^6/uL (4.30-6.10); WHITE BLOOD COUNT 6.5 10^3/uL (4.0-10.0)
[2020-02-24 06:58] LABS: ALBUMIN 2.7 GM/DL (3.2-5.2); ALT/SGPT 14 U/L (12-78); BILIRUBIN,TOTAL 0.5 MG/DL (0.2-1.0); BLOOD UREA NITROGEN 13 MG/DL (7-18); CALCIUM LEVEL 8.8 MG/DL (8.5-10.1); CARBON DIOXIDE LEVEL 30 MEQ/L (21-32); CHLORIDE LEVEL 103 MEQ/L (98-107); CREATININE FOR GFR 0.67 MG/DL (0.70-1.30); GLOMERULAR FILTRATION RATE > 60.0 (>60); GLUCOSE, FASTING 293 MG/DL (70-100); PHOSPHORUS LEVEL 3.8 MG/DL (2.5-4.9); POTASSIUM SERUM 3.9 MEQ/L (3.5-5.1); SODIUM LEVEL 139 MEQ/L (136-145); TOTAL PROTEIN 5.8 GM/DL (6.4-8.2)
[2020-02-24] MEDS: OLANZapine 10 MG TAB PO SCH (08:18)
[2020-02-24] MEDS: ENOXAPARIN 40MG/0.4ML SYRINGE (J1650 PER 10MG) SC SCH (08:18)
[2020-02-24] MEDS: HumaLOG INSULIN (NovoLOG) PER UNIT SC SCH ×4 (08:18→20:25)
[2020-02-24] MEDS ORDERED: LEVO100T5 PO (09:39)
[2020-02-24] MEDS ORDERED: GLUCTAB2 PO (09:39)
[2020-02-24] MEDS ORDERED: GLIP5TAB20 PO (09:39)
[2020-02-24] MEDS ORDERED: LANC30MI XX (09:47)
[2020-02-24] MEDS ORDERED: ALCOPAD25 TOP (09:47)
[2020-02-24] MEDS ORDERED: BLOOKIT21 XX (09:47)
[2020-02-24] MEDS ORDERED: GLUC1TES2 XX (09:47)
--- NOTE | 2020-02-24 12:57 | DS.PDOC ---
Discharge Summary General Date of Admission February 20, 2020 at 04:57 Date of Discharge 02/25/20 Discharge Summary PROCEDURES PERFORMED DURING STAY: None. ADMITTING DIAGNOSES: 1. Hyperglycemia. DISCHARGE DIAGNOSES: 1. New onset diabetes mellitus, hypothyroidism. COMPLICATIONS/CHIEF COMPLAINT: Hypocalcemia. HISTORY OF PRESENT ILLNESS: Vladislav is a 44-year-old male with PMHx of hypothyroidism (on Synthroid) and significant mental illness with psychoses, who presented to the ED by EMS with the chief complaint of shortness of breath. The patient reports having 5 episodes of nonbloody emesis earlier in the overnight period, followed by progressively worsening shortness of breath to the point where he called 911. He states he's never had shortness of breath like this before and denies any known respiratory conditions. He denies any recent travel, changes in medications, changes in diet, or exposure to sick contacts. According to the ED, when EMS arrived at his home, he initially refused to be taken to the hospital and made multiple attempts to get himself off the gurney. Upon arrival to the ED, he was still relatively fidgety and using profanities. EMS reported his home to be in quite a disheveled state, with lots of spiders and strewn empty 2 L bottles of Coke. Currently he endorses associated increased work of breathing, chills, palpitations, lightheadedness without syncope, and moderate "burning" with his last few bowel movements. 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 In the ED, he was found to be in diabetic ketoacidosis: vbg pH 6.89, PCO2 21.3, HCO3 52, anion gap 28, beta hydroxybutyrate greater than 46, lactic acid 5.4, A1c 13.7, serum osmolality 333, sGlu 722. He also had multiple electrolyte abnormalities: Potassium 3.0, calcium 5.9 (corrected calcium 7.4), magnesium 1.6. He had leukocytosis with normocytic ane rajendra, along with other assorted metabolic abnormalities. He received one IV run each of KCl and mag sulfate, with oral KCl, along with two 1L NS boluses. Due to his significantly depressed potassium, insulin drip was deferred. He reports following with a PCP named Dr. Mihir Peña for whom we were unable to find any records. He has NKDA.. HOSPITAL COURSE: . Agent was admitted with diabetic ketoacidosis with very elevated blood sugar with positive anion gap and hydroxybutyric acid. Patient was started on IV fluids, IV insulin. Later, patient was started on day tumor, 20 units subcutaneous daily with good control Diabetic ketoacidosis (DKA), severe- resolved. Diabetes mellitus type 2, uncontrolled is a new diagnosis. At this time not suspicious for underlying inf ection, awaiting blood culture results however. HbA1c >13. Continue with levemir QAM, insulin sliding scale, consistent carbohydrate diet. Patient will need education by patient educator for this diagnosis, education by nursing for fingersticks and insulin administration. Patient is refusing to take insulin as per he is uncomfortable and fearful of needles as well as injection and symmetric. And as per patient, he is unable to afford the insulin and he is not going to get it as an outpatient. Patient would like to be tried on oral hypoglycemic agents first, which according patient he will be more compliant and able to afford. Detemir Insulin was discontinued and patient was started on Glucophage XL 75 mg by mouth daily and Glucotrol XL 5 mg by mouth daily. Patient fingerstick has remained between 200-3000 and I'm hoping that he will still go down, patient is planning to follow-up with the [facility] for his further care. Complications of oral hypoglycemic including hypoglycemia recognition and symptoms were explained to him and he understands very well Patient will also continue to check his fingerstick every before meals and at bedtime for which the glucometer prescription was provided All risks off oral hypoglycemic agents including poor sugar control, hypoglycemic events, other side effects were explained to him and he understands very well and wishes to continue with Glucotrol and Glucophage Patient was scheduled to be discharged yesterday on 02/24/2020 but could not as patient has no way of getting his medications. Hopefully, patient will be discharged today once arrangements by social workers of [facility]. Obtained his medications to be used as an outpatient. DISCHARGE MEDICATIONS: Please see below. ALLERGIES: Please see below. PHYSICAL EXAMINATION ON DISCHARGE: VITAL SIGNS: Please see below. GENERAL: Within normal limits HEENT: PERRLA. Extraocular muscles intact NECK: Supple. Negative JVD, negative lymphadenopathy CARDIOVASCULAR EXAMINATION: S1, S2, regular RESPIRATORY EXAMINATION: Clear to A&P ABDOMINAL EXAMINATION: Benign EXTREMITIES: No clubbing, cyanosis, edema SKIN: Within normal limits NEUROLOGICAL EXAMINATION: . No focal motor sensory deficit PSYCHIATRIC EXAMINATION: Normal LABORATORY DATA: Please see below. IMAGING: Chest x-ray: IMPRESSION: There is no acute cardiopulmonary disease. PROGNOSIS: Good ACTIVITY: As tolerated. DIET: Diabetic diet DISCHARGE PLAN: Home DISPOSITION: . Home DISCHARGE INSTRUCTIONS: 1. As per discharge instructions. ITEMS TO FOLLOWUP ON ON OUTPATIENT: 1. Follow with PCP in one week. DISCHARGE CONDITION: Stable. TIME SPENT ON DISCHARGE: 22 minutes. Vital Signs/I&Os Vital Signs Date Time Temp Pulse Resp B/P (MAP) Pulse Ox O2 Delivery O2 Flow Rate FiO2 02/23/20 22:00 97.9 93 19 122/85 (97) 98 Room Air I&O- Last 24 Hours up to 6 AM 02/24/20 06:00 Intake Total 3265 ml Output Total 1900 ml Balance 1365 ml Laboratory Data Labs 24H Laboratory Tests 2 02/23/20 16:36: Bedside Glucose (Misc Panel) 257H 02/24/20 05:53: Nucleated Red Blood Cells % (auto) 0.0, Anion Gap 6L, Glomerular Filtration Rate > 60.0, Calcium Level 8.8, Phosphorus Level 3.8, Total Bilirubin 0.5, Aspartate Amino Transf (AST/SGOT) 8, Alanine Aminotransferase (ALT/SGPT) 14, Alkaline Phosphatase 83, Total Protein 5.8L, Albumin 2.7L, Albumin/Globulin Ratio 0.87L CBC/BMP Laboratory Tests 02/24/20 05:53 FSBS Laboratory Tests Test 02/23/20 16:36 Range/Units Bedside Glucose (Misc Panel) 257 70-105 MG/DL Microbiology Microbiology 02/21/20 Blood Culture - Preliminary, Resulted No Growth after 72 hours. All specime... 02/21/20 Blood Culture - Preliminary, Resulted No Growth after 72 hours. All specime... 02/20/20 Blood Culture - Preliminary, Resulted No Growth after 72 hours. All specime... Discharge Medications Scheduled Blood Sugar Diagnostic (Advanced Glucose Test Strips) 1 Each Strip, 1 STRIP XX ASDIRECTED Glipizide (Glipizide ER) 5 Mg Tab.er.24, 5 MG PO DAILY@1730 Levothyroxine Sodium (Levothyroxine Sodium) 100 Mcg Tablet, 100 MCG PO DAILY@06 Metformin HCl (Glucophage Xr) 750 Mg Tab.er.24h, 750 MG PO DAILY@18 Olanzapine (Olanzapine) 10 Mg Tablet, 10 MG PO DAILY, (Reported) Allergies Coded Allergies: No Known Allergies (Verified , 06/24/12) VESNA POLLARD MD February 24, 2020 12:57
[2020-02-24 14:00] VITALS: BP 118/81
[2020-02-24] MEDS: metFORMIN XR 750 MG TAB PO SCH (18:27)
[2020-02-24] MEDS: glipiZIDE XL 5 MG TABCR PO SCH (18:27)
[2020-02-24 22:00] VITALS: BP 117/82
[2020-02-25] MEDS: LEVOTHYROXINE 100MCG TABLET (0.1MG) PO SCH (05:38)
[2020-02-25 06:00] VITALS: BP 120/78
[2020-02-25] MEDS: OLANZapine 10 MG TAB PO SCH (08:11)
[2020-02-25] MEDS: ENOXAPARIN 40MG/0.4ML SYRINGE (J1650 PER 10MG) SC SCH (08:11)
[2020-02-25] MEDS: HumaLOG INSULIN (NovoLOG) PER UNIT SC SCH ×2 (08:11→11:54)
[2020-02-25] MEDS ORDERED: GLIP5TAB20 PO (10:22)
[2020-02-25] MEDS ORDERED: LEVO100T5 PO (10:22)
[2020-02-25] MEDS ORDERED: GLUCTAB2 PO (10:22)
--- NOTE | 2020-02-25 11:31 | IPNPDOC ---
Subjective Date Seen The patient was seen on 02/24/20. Subjective Chief Complaint/HPI Patient comfortable in no distress. Patient most likely will be discharged home today General: Denies: ROS Unobtainable, Chills, Night Sweats, Fatigue, Malaise, Normal Appetite, Other Symptoms Constitutional: Denies: Chills, Fever, Malaise, Night Sweats, Weakness, Fatigue, Weight Loss, Lethargy, Other Pulmonary: Denies: Dyspnea, Cough, Pleuritic Chest Pain, Other Symptoms Cardiovascular: Denies: Chest Pain, Palpitations, Orthopnea, Paroxysmal Noc. Dyspnea, Edema, Lt Headedness, Other Symptoms Gastrointestinal: Denies: Nausea, Vomiting, Abdominal Pain, Diarrhea, Constipation, Melena, Hematochezia, Other Symptoms Endocrine: Denies: Polydipsia, Polyphagia, Polyuria, Heat Intolerance, Cold Intolerance, Other Endocrine Sx Musculoskeletal: Denies: Neck Pain, Back Pain, Shoulder Pain, Arm Pain, Hand Pain, Leg Pain, Foot Pain, Joint Pain, Muscle Pain, Spasms, Other Symptoms Neurological: Denies: Weakness, Numbness, Incoordination, Change in speech, Confusion, Seizures, Other Symptoms Objective Physical Examination General Exam: Positive: Alert, Cooperative Eye Exam: Positive: PERRLA, Conjunctiva & lids normal ENT Exam: Positive: Atraumatic, Mucous membr. moist/pink Neck Exam: Positive: Supple Chest Exam: Positive: Clear to auscultation, Normal air movement Heart Exam: Positive: Rate Normal, Normal S1, Normal S2 Abdomen Exam: Positive: Normal bowel sounds, Soft Skin Exam: Positive: Nl turgor and temperature Neuro Exam: Positive: Strength at 5/5 X4 ext, Sensation Intact, Cranial Nerves 3-12 NL Assessment /Plan Problems (1) Diabetic ketoacidosis Status: Resolved Problem Text: Diabetic ketoacidosis (DKA), severe- resolved. Diabetes mellitus type 2, uncontrolled is a new diagnosis. At this time not suspicious for underlying infection, awaiting blood culture results however. HbA1c >13. Continue with levemir QAM, insulin sliding scale, consistent carbohydrate diet. Patient will need education by adult educator for this diagnosis, education by nursing for fingersticks and insulin administration. Patient is refusing to take insulin as per he is uncomfortable and fearful of needles as well as injection and symmetric. And as per patient, he is unable to afford the insulin and he is not going to get it as an outpatient. Patient would like to be tried on oral hypoglycemic agents first, which according patient he will be more compliant and able to afford. DC detemir insulin , patient was started on Glucophage XR 750 by mouth daily and Glucotrol XL 5 mg by mouth daily Seems like patient is responding. His blood sugar is under 300. It might take a 24-48 hours to see the full affect off both medications. Once the arrangements for his home medications are made, then he will possibly be discharged home today Fingerstick blood sugar every before meals and at bedtime with coverage Will monitor patient's fingerstick blood sugar and adjust dose of oral hypoglycemic agents. All risks off oral hypoglycemic agents including poor sugar control, hypoglycemic events, other side effects were explained to him and he understands very well and wishes to continue with Glucotrol and Glucophage (2) Hypothyroidism Status: Chronic Problem Text: Continue Synthroid as per orders Plan/VTE VTE Prophylaxis Ordered?: Yes VS, I&O, 24H, Fishbone Vital Signs/I&O Vital Signs Date Time Temp Pulse Resp B/P (MAP) Pulse Ox O2 Delivery O2 Flow Rate FiO2 02/25/20 06:00 97.8 70 17 120/78 (92) 96 Room Air I&O- Last 24 Hours up to 6 AM 02/25/20 06:00 Intake Total 4185 ml Output Total 1900 ml Balance 2285 ml Laboratory Data 24H LABS Laboratory Tests 2 02/24/20 11:31: Bedside Glucose (Misc Panel) 292H 02/24/20 17:16: Bedside Glucose (Misc Panel) 289H 02/24/20 19:57: Bedside Glucose (Misc Panel) 331H 02/25/20 06:00: Bedside Glucose (Misc Panel) 254H Microbiology Microbiology 02/21/20 Blood Culture - Preliminary, Resulted No Growth after 72 hours. All specime... 02/21/20 Blood Culture - Preliminary, Resulted No Growth after 72 hours. All specime... 02/20/20 Blood Culture - Final, Complete NO GROWTH AFTER 5 DAYS VESNA POLLARD MD February 25, 2020 11:31
== END 2020-02-25 13:40 | disposition home or self-care (01) | DRG 420 ==
LOC: M ED 03:12 → M ED INP 04:57 → ENRESERV 05:50 → M ICU 07:44 → M MSPAV 02-21 12:37
PROVIDERS: ADMIT Internal Medicine; ATTEND Internal Medicine
DX: E11.10 Type 2 diabetes mellitus with ketoacidosis without coma (principal); N17.9 Acute kidney failure, unspecified; E83.42 Hypomagnesemia; E83.39 Other disorders of phosphorus metabolism; H05.20 Unspecified exophthalmos; E87.5 Hyperkalemia; E11.65 Type 2 diabetes mellitus with hyperglycemia; N28.1 Cyst of kidney, acquired; E03.9 Hypothyroidism, unspecified; D64.9 Anemia, unspecified; E87.6 Hypokalemia; F29 Unspecified psychosis not due to a substance or known physiological condition; R74.0 Nonspecific elevation of levels of transaminase and lactic acid dehydrogenase [LDH]; Z79.899 Other long term (current) drug therapy

== ENCOUNTER → 2020-06-21 | Outpatient (REF) | payer MEDICAID, OTHER ==
[~2020-06-21] MED LIST changes: +ALCOPAD25 TOP; +BASA100I SC; +BLOOKIT21 XX; +D31000TA2 PO; +DRIS50003 PO; +GLIP5TAB20 PO; +GLIP5TAB8 PO; +GLUC1TES2 XX; +GLUCTAB2 PO; +LANC30MI XX; +LANTINJ4 SC; +LEVO-95 PO; +LEVO100T5 PO; +LEVO125T4 PO; +LEVO75TA4 PO; +METF-839 PO; +METF750T36 PO; +MULTCAP PO; +OLAN10TA2 PO; +PEN1MIS22 SC; +PEN1MIS23 SC; +SYNT150T PO; +med rec comment
[2020-06-21 12:35] LABS: BASO # 0.1 10^3/uL (0.0-0.2); BASO % 0.8 % (0.0-1.0); EOS # 0.2 10^3/uL (0.0-0.5); EOS % 2.7 % (0.0-3.0); HEMATOCRIT 53.3 % (42.0-52.0); LYMPH # 1.8 10^3/uL (1.5-5.0); LYMPH % 23.7 % (24.0-44.0); MEAN CORPUSCULAR HGB CONC 31.9 g/dl (32.0-36.5); MEAN CORPUSCULAR VOLUME 87.8 fl (80.0-96.0); MONO # 0.7 10^3/uL (0.0-0.8); NEUTROPHILS # 4.7 10^3/uL (1.5-8.5); NEUTROPHILS % 63.5 % (36.0-66.0); PLATELET COUNT, AUTOMATED 342 10^3/uL (150-450); RED BLOOD COUNT 6.07 10^6/uL (4.30-6.10); WHITE BLOOD COUNT 7.5 10^3/uL (4.0-10.0)
[2020-06-21 13:15] LABS: CREATININE, URINE 88.5 MG/DL; MALB URINE SIEMENS 11.6 MG/L; MAU/CREAT RATIO 13.1 MCG/MG (0.0-30.0)
[2020-06-21 13:36] LABS: ALBUMIN 4.1 GM/DL (3.2-5.2); ALT/SGPT 40 U/L (12-78); BILIRUBIN,TOTAL 0.5 MG/DL (0.2-1.0); BLOOD UREA NITROGEN 15 MG/DL (7-18); CALCIUM LEVEL 9.7 MG/DL (8.5-10.1); CARBON DIOXIDE LEVEL 31 MEQ/L (21-32); CHLORIDE LEVEL 99 MEQ/L (98-107); CHOLESTEROL LEVEL 257 MG/DL (<200); CHOLESTEROL RISK RATIO 4.431 (<5); CREATININE FOR GFR 1.12 MG/DL (0.70-1.30); FREE T4 1.03 NG/DL (0.76-1.46); GLOMERULAR FILTRATION RATE > 60.0 (>60); GLUCOSE, FASTING 443 MG/DL (70-100); HDL CHOLESTEROL 58 MG/DL (>40); LDL CHOLESTEROL 148 MG/DL (<100); NON-HDL-C 199 MG/DL; POTASSIUM SERUM 4.6 MEQ/L (3.5-5.1); SODIUM LEVEL 133 MEQ/L (136-145); THYROID STIMULATING HORMONE 0.193 uIU/ML (0.358-3.740); TOTAL PROTEIN 7.6 GM/DL (6.4-8.2); TRIGLYCERIDES LEVEL 257 MG/DL (<150)
[2020-06-21 14:25] LABS: HEMOGLOBIN A1c 10.4 %
== END ==
LOC: M LAB REF 11:21
PROVIDERS: ATTEND Physician Assistant
DX: E11.65 Type 2 diabetes mellitus with hyperglycemia (principal)

== ENCOUNTER 2020-08-11 13:07 | Emergency (ER) | payer OTHER ==
[~2020-08-11] VITALS: Ht 182.9 cm; Wt 104.5 kg
[~2020-08-11 13:07] MED LIST changes: -BASA100I SC; -D31000TA2 PO; -DRIS50003 PO; -GLIP5TAB8 PO; -LANTINJ4 SC; -LEVO-95 PO; -LEVO75TA4 PO; -METF-839 PO; -METF750T36 PO; -MULTCAP PO; -PEN1MIS22 SC; -PEN1MIS23 SC; -SYNT150T PO
[2020-08-11] MEDS ORDERED: LEVO-95 PO (13:35)
[2020-08-11] MEDS ORDERED: hydrOXYzine 25 MG TAB PO STA (13:39)
[2020-08-11] MEDS ORDERED: ASPIRIN 81 MG CHEW TABLET PO ONE (13:45)
[2020-08-11 13:59] LABS: ABG BASE EXCESS -20.9 (-2.0-2.0); ABG HCO3 4.5 MEQ/L (22.0-26.0); ABG PARTIAL PRESSURE CO2 12.6 mmHg (35.0-45.0); ABG PARTIAL PRESSURE O2 173.5 mmHg (75.0-100.0); ABG STANDARD HCO3 10.4 MEQ/L (22.0-26.0); ABG TOTAL CO2 4.9 MEQ/L (22.0-29.0); ABG pH (ARTERIAL) 7.169 UNITS (7.350-7.450)
[2020-08-11 14:01] LABS: BASO # 0.1 10^3/uL (0.0-0.2); BASO % 0.5 % (0.0-1.0); HEMATOCRIT 54.8 % (42.0-52.0); HEMOGLOBIN 17.3 g/dl (13.5-17.5); LYMPH # 0.8 10^3/uL (1.5-5.0); LYMPH % 5.9 % (24.0-44.0); MEAN CORPUSCULAR HEMOGLOBIN 27.9 pg (27.0-33.0); MEAN CORPUSCULAR HGB CONC 31.6 g/dl (32.0-36.5); MEAN CORPUSCULAR VOLUME 88.4 fl (80.0-96.0); MONO # 1.4 10^3/uL (0.0-0.8); MONO % 10.3 % (0.0-5.0); NEUTROPHILS # 10.8 10^3/uL (1.5-8.5); NEUTROPHILS % 82.4 % (36.0-66.0); PLATELET COUNT, AUTOMATED 469 10^3/uL (150-450); WHITE BLOOD COUNT 13.2 10^3/uL (4.0-10.0)
[2020-08-11 14:12] LABS: INR 1.05; PROTHROMBIN TIME 13.9 SECONDS (12.5-14.3)
[2020-08-11 15:03] LABS: BLOOD UREA NITROGEN 13 MG/DL (7-18); CALCIUM LEVEL 9.8 MG/DL (8.5-10.1); CARBON DIOXIDE LEVEL 9 MEQ/L (21-32); CHLORIDE LEVEL 98 MEQ/L (98-107); CK-MB VALUE MASS < 1.0 NG/ML (<3.6); CPK CREATINE PHOSPHOKINASE 26 U/L (39-308); CREATININE FOR GFR 1.44 MG/DL (0.70-1.30); FREE THYROXINE INDEX 4.5 % (1.4-3.8); GLOMERULAR FILTRATION RATE 56.2 (>60); GLUCOSE, FASTING 318 MG/DL (70-100); MB/CK RELATIVE INDEX 3.85 (< OR =4); POTASSIUM SERUM 5.1 MEQ/L (3.5-5.1); SODIUM LEVEL 129 MEQ/L (136-145); T UPTAKE 36 % (33-40); THYROID STIMULATING HORMONE < 0.005 uIU/ML (0.358-3.740); THYROXINE (T4) 12.5 UG/DL (4.5-12.0); TROPONIN I < 0.02 NG/ML (< 0.10)
[2020-08-11] MEDS ORDERED: NS 1,000 ML IV ONE (15:15)
[2020-08-11] MEDS ORDERED: HumuLIN R (REGULAR) INSULIN (NovoLIN R) **100U/ML** PER UNIT IV ONE (15:15)
[2020-08-11] MEDS ORDERED: INSULIN REGULAR IN 0.9 % NACL 100 UNIT in IV 1 EA IV SCH ×2 (15:26)
[2020-08-11] MEDS ORDERED: NS 2,000 ML IV ONE (15:30)
[2020-08-11] MEDS ORDERED: INSULIN IV RATE CHANGE DOCUMENTATION ML/HR XX SCH (15:30)
[2020-08-11] MEDS ORDERED: SYNT150T PO (15:33)
[2020-08-11] MEDS ORDERED: DRIS50003 PO (15:33)
[2020-08-11] MEDS ORDERED: METF750T36 PO (15:33)
[2020-08-11] MEDS ORDERED: GLIP5TAB8 PO (15:33)
[2020-08-11] MEDS ORDERED: MULTCAP PO (15:33)
[2020-08-11] MEDS ORDERED: D31000TA2 PO (15:52)
--- NOTE | 2020-08-11 15:59 | REP ---
INDICATION: DYSPNEA/COUGH. COMPARISON: 02/20/2020. TECHNIQUE: SINGLE PORTABLE AP VIEW OF THE CHEST WAS PERFORMED. FINDINGS: THERE IS NO ACUTE INFILTRATE OR PULMONARY EDEMA. LUNGS ARE CLEAR. HEART IS NOT SIGNIFICANTLY ENLARGED. MEDIASTINAL SILHOUETTE IS UNREMARKABLE. THE VISUALIZED OSSEOUS STRUCTURES ARE INTACT. IMPRESSION: NO ACUTE PULMONARY DISEASE. <Electronically signed by Elvis Espinosa > 08/11/20 1047
--- NOTE | 2020-08-11 16:57 | IPNPDOC ---
Date Seen The patient was seen on 08/11/20. Progress Note Patient refused admission. "I will NOT take insulin." ER Provider, Maurilio Carver, made aware. Plan: admission for DKA discontinued. Pt advised to have a friend or relative monitor him at home after a few hours, and return to ER when he is ready to GIVE PERMISSION TO BE TREATED WITH INSULIN FOR DKA. RISKS: acidosis, BENEFIT: treatment and reversal of DKA. VS, I&O, 24H, Fishbone Vital Signs/I&O Vital Signs Date Time Temp Pulse Resp B/P (MAP) Pulse Ox O2 Delivery O2 Flow Rate FiO2 08/11/20 14:30 122 20 145/76 (99) 100 Room Air 08/11/20 13:30 97.9 Laboratory Data 24H LABS Laboratory Tests 2 08/11/20 13:46: Immature Granulocyte % (Auto) 0.9, Neutrophils (%) (Auto) 82.4H, Lymphocytes (%) (Auto) 5.9L, Monocytes (%) (Auto) 10.3H, Eosinophils (%) (Auto) 0.0, Basophils (%) (Auto) 0.5, Neutrophils # (Auto) 10.8H, Lymphocytes # (Auto) 0.8L, Monocytes # (Auto) 1.4H, Eosinophils # (Auto) 0.0, Basophils # (Auto) 0.1, Nucleated Red Blood Cells % (auto) 0.0, Prothrombin Time 13.9, Prothromb Time International Ratio 1.05, Blood Gas Bicarbonate Standard 10.4L, Arterial Blood pH 7.169*L, Arterial Blood Partial Pressure CO2 12.6*L, Arterial Blood Partial Pressure O2 173.5H, Arterial Blood Total CO2 4.9L, Arterial Blood HCO3 4.5L, Arterial Blood Base Excess -20.9L, Arterial Blood Oxygen Saturation 99.0, Anion Gap 22H, Glomerular Filtration Rate 56.2L, Calcium Level 9.8, Total Creatine Kinase 26L, Creatine Kinase MB < 1.0, Creatine Kinase MB Relative Index 3.85, Troponin I < 0.02, Thyroid Stimulating Hormone (TSH) < 0.005L, Free Thyroxine Index 4.5H, T hyroxine (T4) 12.5H, Triiodothyronine (T3) Uptake 36 CBC/BMP Laboratory Tests 08/11/20 13:46 Microbiology Microbiology 10/30/20 Respiratory Virus Panel (PCR) ([facility]) - Final, Complete TSERING GUO MD Aug 11, 2020 16:57
[2020-08-11 17:15] VITALS: BP 142/73
[2020-08-12] MEDS ORDERED: OLANZapine INTRAMUSCULAR 10MG VIAL As Ordered ONE (04:59)
== END 2020-08-11 17:33 | disposition left against medical advice (07) ==
LOC: M ED 13:07 → EDBD 13:07 → UNDOADMIN 15:25 → M ED INP 15:25 → ENRESERV 16:21 → UNDODISIN 17:33
DX: E11.10 Type 2 diabetes mellitus with ketoacidosis without coma (principal); E87.1 Hypo-osmolality and hyponatremia; Z91.19 Patient's noncompliance with other medical treatment and regimen; E07.9 Disorder of thyroid, unspecified; Z79.899 Other long term (current) drug therapy

== ENCOUNTER 2020-08-12 03:41 | Inpatient (IN) | payer OTHER ==
[2020-08-12] VITALS (19 sets, daily range): BP systolic 107–156; BP diastolic 57–84
[~2020-08-12] VITALS: Ht 182.9 cm; Wt 101.7 kg
[~2020-08-12 03:41] MED LIST changes: +D31000TA2 PO; +DRIS50003 PO; +GLIP5TAB8 PO; +LEVO-95 PO; +METF750T36 PO; +MULTCAP PO; +SYNT150T PO
[2020-08-12] MEDS ORDERED: OLANZapine INTRAMUSCULAR 10MG VIAL As Ordered ONE (03:56)
[2020-08-12] MEDS ORDERED: OLANZapine INTRAMUSCULAR 10MG VIAL IM ONE (04:00)
[2020-08-12] MEDS ORDERED: OLANZapine INTRAMUSCULAR 10MG VIAL XX ONE ×2 (04:15→04:45)
[2020-08-12] MEDS ORDERED: NS 1,000 ML IV ONE ×2 (04:15→04:30)
[2020-08-12 04:16] LABS: VENOUS BASE EXCESS -30.6 (-2.0-2.0); VENOUS HCO3 4.1 MEQ/L (23.0-27.0); VENOUS O2 SATURATION 90.1 % (60.0-80.0); VENOUS PARTIAL PRESSURE CO2 27.4 mmHg (38.0-50.0); VENOUS PARTIAL PRESSURE O2 80.3 mmHg (30.0-50.0); VENOUS PH 6.796 UNITS (7.330-7.430); VENOUS STANDARD HCO3 6.2 MEQ/L
[2020-08-12 04:22] LABS: BASO # 0.1 10^3/uL (0.0-0.2); BASO % 0.5 % (0.0-1.0); HEMATOCRIT 56.4 % (42.0-52.0); HEMOGLOBIN 17.1 g/dl (13.5-17.5); LYMPH # 1.2 10^3/uL (1.5-5.0); LYMPH % 5.7 % (24.0-44.0); MEAN CORPUSCULAR HEMOGLOBIN 27.4 pg (27.0-33.0); MEAN CORPUSCULAR HGB CONC 30.3 g/dl (32.0-36.5); MEAN CORPUSCULAR VOLUME 90.5 fl (80.0-96.0); MONO # 1.2 10^3/uL (0.0-0.8); MONO % 5.5 % (0.0-5.0); NEUTROPHILS # 18.7 10^3/uL (1.5-8.5); NEUTROPHILS % 86.2 % (36.0-66.0); RED BLOOD COUNT 6.23 10^6/uL (4.30-6.10); WHITE BLOOD COUNT 21.7 10^3/uL (4.0-10.0)
[2020-08-12] MEDS ORDERED: SODIUM BICARBONATE 8.4% INJ 50 ML SYRINGE As Ordered ONE (04:22)
[2020-08-12] MEDS ORDERED: SODIUM BICARBONATE 8.4% INJ 50 ML SYRINGE IV STA (04:22)
[2020-08-12 04:30] LABS: PLATELET COUNT, AUTOMATED 580 10^3/uL (150-450)
[2020-08-12] MEDS ORDERED: INSULIN REGULAR IN 0.9 % NACL 100 UNIT in IV 1 EA IV SCH ×4 (04:34→09:30)
[2020-08-12 04:39] LABS: ACETONE/KETONE > 46.00 MG/DL (<2.81); ALT/SGPT 17 U/L (12-78); BILIRUBIN,DIRECT 0.2 MG/DL (0.0-0.2); BILIRUBIN,TOTAL 0.6 MG/DL (0.2-1.0); BLOOD UREA NITROGEN 16 MG/DL (7-18); CALCIUM LEVEL 9.7 MG/DL (8.5-10.1); CARBON DIOXIDE LEVEL 6 MEQ/L (21-32); CHLORIDE LEVEL 100 MEQ/L (98-107); CK-MB VALUE MASS < 1.0 NG/ML (<3.6); CPK CREATINE PHOSPHOKINASE 33 U/L (39-308); ETHYL ALCOHOL (ETHANOL) < 0.003 % (0.000-0.010); GLOMERULAR FILTRATION RATE 49.8 (>60); GLUCOSE, FASTING 388 MG/DL (70-100); MAGNESIUM LEVEL 2.3 MG/DL (1.8-2.4); MB/CK RELATIVE INDEX 3.03 (< OR =4); PHOSPHORUS LEVEL 7.1 MG/DL (2.5-4.9); POTASSIUM SERUM 4.3 MEQ/L (3.5-5.1); SODIUM LEVEL 131 MEQ/L (136-145); TOTAL PROTEIN 8.7 GM/DL (6.4-8.2); TROPONIN I < 0.02 NG/ML (< 0.10)
[2020-08-12] MEDS ORDERED: LR 1,000 ML IV ONE ×2 (04:45→06:30)
--- NOTE | 2020-08-12 04:47 | REPVR ---
PROCEDURE INFORMATION: Exam: XR Chest, 1 View Exam date and time: 08/12/2020 4:27 AM Age: 45 years old Clinical indication: Other: Dka TECHNIQUE: Imaging protocol: XR of the chest Views: 1 view. COMPARISON: [place] PORTABLE CHEST X-RAY 08/11/2020 3:32 PM FINDINGS: Lungs: Unremarkable. No consolidation. Pleural space: Unremarkable. No pleural effusion. No pneumothorax. Heart/Mediastinum: Unremarkable. No cardiomegaly. Bones/joints: Unremarkable. IMPRESSION: No acute findings. Electronically signed by: Surinder Botello On 08/12/2020 04:47:01 AM
[2020-08-12] MEDS ORDERED: HumuLIN R (REGULAR) INSULIN (NovoLIN R) **100U/ML** PER UNIT IV ONE (05:15)
[2020-08-12 06:53] LABS: AMPHETAMINES LEVEL URINE NEGATIVE (NEGATIVE); BARBITURATES URINE NEGATIVE (NEGATIVE); BENZODIAZEPINES URINE NEGATIVE (NEGATIVE); CANNABINOIDS URINE NEGATIVE (NEGATIVE); COCAINE METABOLITE URINE NEGATIVE (NEGATIVE); METHADONE URINE NEGATIVE (NEGATIVE); OPIATES URINE NEGATIVE (NEGATIVE); PHENCYCLIDINE URINE NEGATIVE (NEGATIVE)
--- NOTE | 2020-08-12 07:04 | REPVR ---
PROCEDURE INFORMATION: Exam: CT Head Without Contrast Exam date and time: 08/12/2020 6:47 AM Age: 45 years old Clinical indication: Altered mental status/memory loss; Confusion or disorientation; Additional info: Dka TECHNIQUE: Imaging protocol: Computed tomography of the head without contrast. Radiation optimization: All CT scans at this facility use at least one of these dose optimization techniques: automated exposure control; mA and/or kV adjustment per patient size (includes targeted exams where dose is matched to clinical indication); or iterative reconstruction. COMPARISON: No relevant prior studies available. FINDINGS: Brain: Normal. No hemorrhage. Unremarkable white matter. No mass effect. Cerebral ventricles: No ventriculomegaly. Bones/joints: Chronic appearing left lamina papyracea fracture deformity. Paranasal sinuses: Paranasal sinus disease. Mastoid air cells: Visualized mastoid air cells are well aerated. Soft tissues: Unremarkable. IMPRESSION: No acute intracranial pathology. Electronically signed by: Surinder Botello On 08/12/2020 07:03:17 AM
[2020-08-12] MEDS ORDERED: PIPERACILLIN/TAZOBACTAM SOD 4.5 GM in D5W MINI-BAG PLUS 50 ML IV ONE (07:15)
[2020-08-12] MEDS ORDERED: ISOVUE-370 76% 100ML VIAL As Ordered ONE (07:17)
[2020-08-12 07:36] LABS: BLOOD UREA NITROGEN 18 MG/DL (7-18); C REACTIVE PROTEIN QUANTITATIV 2.77 MG/DL (0.00-0.30); CALCIUM LEVEL 8.5 MG/DL (8.5-10.1); CARBON DIOXIDE LEVEL 5 MEQ/L (21-32); CHLORIDE LEVEL 106 MEQ/L (98-107); CREATININE FOR GFR 1.42 MG/DL (0.70-1.30); GLOMERULAR FILTRATION RATE 57.1 (>60); GLUCOSE, FASTING 403 MG/DL (70-100); SODIUM LEVEL 136 MEQ/L (136-145)
[2020-08-12] MEDS ORDERED: SODIUM BICARBONATE 75 MEQ in NS 0.45% 1,000 ML IV SCH ×2 (07:45→09:00)
--- NOTE | 2020-08-12 08:05 | ECGEPIP ---
[facility] - ED Test Date: 2020-08-12 Pat Name: EMY OBRIEN Department: Room: - Gender: Male Local Telephone Operator: jaymie : 1975 Requested By: CHAVO CADE Order Number: [id number] Reading MD: Chavo Trevino Measurements Intervals [place] Rate: 133 P: 47 ME: 150 QRS: 24 QRSD: 98 T: 73 QT: 321 QTc: 477 Interpretive Statements SINUS TACHYCARDIA POOR R WAVE PROGRESSION POSSIBLE INCOMPLETE RIGHT BUNDLE BRANCH BLOCK NSTTW ABNORMALITY(S) Electronically Signed on 08-12-2020 8:05:05 EDT by Chavo Trevino
--- NOTE | 2020-08-12 08:14 | REPVR ---
PROCEDURE INFORMATION: Exam: CT Angiography Chest With Contrast Exam date and time: 08/12/2020 7:35 AM Age: 45 years old Clinical indication: Abnormal findings; Abnormal diagnostic tests; Abnormal ekg; Additional info: Elev wbc TECHNIQUE: Imaging protocol: Computed tomographic angiography of the chest with intravenous contrast. 3D rendering (Not supervised by radiologist): MIP and/or 3D reconstructed images were created by the technologist. Radiation optimization: All CT scans at this facility use at least one of these dose optimization techniques: automated exposure control; mA and/or kV adjustment per patient size (includes targeted exams where dose is matched to clinical indication); or iterative reconstruction. Contrast material: ISOVUE 370; Contrast volume: 100 ml; Contrast route: INTRAVENOUS (IV); COMPARISON: [facility] PORTABLE CHEST X-RAY 08/12/2020 4:23 AM FINDINGS: Pulmonary arteries: Normal. No pulmonary emboli. Aorta: Unremarkable. No aortic aneurysm. No aortic dissection. Lungs: Mild dependent atelectasis at the bilateral lung bases. Pleural space: Unremarkable. No pneumothorax. No pleural effusion. Heart: Unremarkable. No cardiomegaly. No pericardial effusion. Lymph nodes: Unremarkable. No enlarged lymph nodes. Bones/joints: Multilevel degenerative disease of the thoracic spine. Mild scoliosis. Soft tissues: Unremarkable. Other findings: Severely degraded by motion. IMPRESSION: Severely degraded by motion. No acute findings. Electronically signed by: Surinder Botello On 08/12/2020 08:13:49 AM
--- NOTE | 2020-08-12 08:17 | REPVR ---
PROCEDURE INFORMATION: Exam: CT Abdomen And Pelvis With Contrast Exam date and time: 08/12/2020 7:35 AM Age: 45 years old Clinical indication: Abnormal findings; Abnormal lab test; Elevated wbc; Additional info: Elev wbc TECHNIQUE: Imaging protocol: Computed tomography of the abdomen and pelvis with intravenous contrast. Radiation optimization: All CT scans at this facility use at least one of these dose optimization techniques: automated exposure control; mA and/or kV adjustment per patient size (includes targeted exams where dose is matched to clinical indication); or iterative reconstruction. Contrast material: ISOVUE 370; Contrast volume: 100 ml; Contrast route: INTRAVENOUS (IV); COMPARISON: SR CT ABD W/IV CONTRAST ONLY 02/21/2020 8:33 AM FINDINGS: Tubes, catheters and devices: Left groin central venous catheter terminating in the left common iliac vein. Liver: Normal. No mass. Gallbladder and bile ducts: Normal. No calcified stones. No ductal dilation. Pancreas: Normal. No ductal dilation. Spleen: Normal. No splenomegaly. Adrenal glands: Normal. No mass. Kidneys and ureters: Simple bilateral renal cysts. Stomach and bowel: Mild bowel wall thickening predominantly involving transverse colon. Under distension is favored. Colitis cannot be completely excluded. Diverticulosis of the colon. No specific evidence of acute diverticulitis. Distended stomach. Appendix: No evidence of appendicitis. Intraperitoneal space: Unremarkable. No free air. No significant fluid collection. Vasculature: Unremarkable. No abdominal aortic aneurysm. Lymph nodes: Unremarkable. No enlarged lymph nodes. Urinary bladder: Ferro balloon catheter in the urinary bladder. Reproductive: Unremarkable as visualized. Bones/joints: Unremarkable. No acute fracture. Soft tissues: Unremarkable. Other findings: Severely degraded by motion. IMPRESSION: Severely degraded by motion. Mild bowel wall thickening predominantly involving transverse colon. Under distension is favored. Colitis cannot be completely excluded. Diverticulosis of the colon. No specific evidence of acute diverticulitis. COMMENTS: Consistent with the [employer]'s Incidental Findings Committee white paper (J Am Velvet Radiol 2018): Any incidental renal lesion less than 1 cm or classified as too small to characterize, or any incidental cystic renal lesion characterized as simple-appearing, is likely benign. No follow-up imaging is recommended for these lesions per consensus recommendations based on imaging criteria. Electronically signed by: Surinder Botello On 08/12/2020 08:16:47 AM
[2020-08-12 08:39] LABS: FREE THYROXINE INDEX 3.8 % (1.4-3.8); T UPTAKE 40 % (33-40); THYROID STIMULATING HORMONE < 0.005 uIU/ML (0.358-3.740); THYROXINE (T4) 9.6 UG/DL (4.5-12.0)
--- NOTE | 2020-08-12 08:43 | HPEPDOC ---
General Date of Admission Aug 12, 2020 at 07:56 Date of Service: Aug 12, 2020 Chief Complaint The patient is a 45-year-old male admitted with a reason for visit of Diabetic Ketoacidosis,Hypothyroidism. 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 Patient is lethargic and cannot provide a history, from ER sign out patient was admitted earlier with DKA and left the hospital AMA. He was brought back with lethargy and confusion. In ER patient was found to have leukocytosis of 21.7, glucose level of 403, lactic acid of 7.4, creatinine 1.6, anion gap of 25, VBG showed bicarbonate 6.2, pH 6.7. Imaging study negative for acute pathology Home Medications Scheduled Cholecalciferol (Vitamin D3) (Vitamin D3) 1,000 Unit Tablet, 2,000 UNITS PO DAILY, (Reported) Levothyroxine Sodium (Synthroid) 150 Mcg Tablet, 150 MCG PO QAM, (Reported) Multivitamin (Multivitamins) 1 Each Capsule, 1 CAP PO DAILY, (Reported) Allergies Coded Allergies: No Known Allergies (Verified , 06/24/12) Past Medical History Medical History Hypothyroidism, on Synthroid Unspecified long history of mental illness with psychoses Diabetes type 2 Surgical History Tonsillectomy Family History History of multiple MIs with associated unspecified heart disease Social History * Smoker: Denies Alcohol: Denies Drugs: denies A-FIB/CHADSVASC A-FIB History Current/History of A-Fib/PAF?: No Current PO Anticoag Therapy: No Review of Systems Constitutional: Reports: Chills, Other (unable to obtain due to lethargy); Denies: Fever Physical Examination General Exam: Positive: Severe Distress Eye Exam: Positive: PERRLA ENT Exam: Positive: Atraumatic Neck Exam: Positive: Supple; Negative: JVD Chest Exam: Positive: Rales, Diminished Heart Exam: Positive: Tachycardic Telemetry: Positive: Sinus Abdomen Exam: Positive: Normal bowel sounds Extremity Exam: Negative: Clubbing Skin Exam: Positive: Nl turgor and temperature Neuro Exam: Positive: Normal Tone, Sensation Intact Psych Exam: Positive: Other (lethargic) Vital Signs Vital Signs Date Time Temp Pulse Resp B/P (MAP) Pulse Ox O2 Delivery O2 Flow Rate FiO2 08/12/20 08:15 132 115/61 (79) 100 08/12/20 08:00 32 08/12/20 07:02 96.1 Laboratory Data Labs 24H Laboratory Tests 2 08/12/20 04:01: Immature Granulocyte % (Auto) 2.1, Neutrophils (%) (Auto) 86.2H, Lymphocytes (%) (Auto) 5.7L, Monocytes (%) (Auto) 5.5H, Eosinophils (%) (Auto) 0.0, Basophils (%) (Auto) 0.5, Neutrophils # (Auto) 18.7H, Lymphocytes # (Auto) 1.2L, Monocytes # (Auto) 1.2H, Eosinophils # (Auto) 0.0, Basophils # (Auto) 0.1, Nucleated Red Blood Cells % (auto) 0.0, Blood Gas Bicarbonate Standard 6.2, Venous Blood pH 6.796L, Venous Blood Partial Pressure CO2 27.4L, Venous Blood Partial Pressure O2 80.3H, Venous Blood Total Carbon Dioxide 5.0L, Venous Blood HCO3 4.1L, Venous Blood Oxygen Saturation 90.1H, Venous Blood Base Excess -30.6L, Anion Gap 25H, Glomerular Filtration Rate 49.8L, Lactic Acid Level 7.4*H, Calcium Level 9.7, Phosphorus Level 7.1H, Magnesium Level 2.3, Total Bilirubin 0.6, Direct Bilirubin 0.2, Aspartate Amino Transf (AST/SGOT) 7, Alanine Aminotransferase (ALT/SGPT) 17, Alkaline Phosphatase 150H, Total Creatine Kinase 33L, Creatine Kinase MB < 1.0, Creatine Kinase MB Relative Index 3.03, Troponin I < 0.02, Total Protein 8.7H, Albumin 4.0, Albumin/Globulin Ratio 0.9, Ethyl Alcohol Level < 0.003, B-Hydroxybutyrate > 46.00H 08/12/20 06:38: Urine Color YELLOW, Urine Appearance HAZY, Urine pH 5.0, Urine Specific [place] 1.018, Urine Protein 2+H, Urine Glucose (UA) 3+H, Urine Ketones 2+H, Urine Blood 2+H, Urine Nitrite NEGATIVE, Urine Bilirubin NEGATIVE, Urine Urobilinogen 0.2, Urine Leukocyte Esterase NEGATIVE, Urine WBC (Auto) 1, Urine RBC (Auto) 2, Urine Hyaline Casts (Auto) 4, Urine Bacteria (Auto) NEGATIVE, Urine Squamous Epith elial Cells 0, Urine Amorphous Sediment SMALLH, Urine Granular Casts (Auto) 3, Urine Mucus (Auto) SMALL, Urine Sperm (Auto) , Urine Opiates Screen NEGATIVE, Urine Methadone Screen NEGATIVE, Urine Barbiturates Screen NEGATIVE, Urine Phencyclidine Screen NEGATIVE, Urine Amphetamines Screen NEGATIVE, Urine Benzodiazepines Screen NEGATIVE, Urine Cocaine Metabolite Screen NEGATIVE, Urine Cannabinoids Screen NEGATIVE 08/12/20 06:43: Anion Gap 25H, Glomerular Filtration Rate 57.1L, Calcium Level 8.5, C-Reactive Protein, Quantitative 2.77H 08/12/20 08:19: Bedside Glucose (Misc Panel) 304H CBC/BMP Laboratory Tests 08/12/20 04:01 08/12/20 06:43 Assessment/Plan Patient is 45 years old male with past medical history of hypothyroidism, 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 Patient is lethargic and cannot provide a history, from ER sign out patient was admitted earlier with DKA and left the hospital AMA. He was brought back with lethargy and confusion. In ER patient was found to have leukocytosis of 21.7, glucose level of 403, lactic acid of 7.4, creatinine 1.6, anion gap of 25, VBG showed bicarbonate 6.2, pH 6.7. Imaging study negative for acute pathology Problems (1) Diabetic ketoacidosis Status: Acute Problem Text: Secondary to noncompliance to diabetes medication Insulin drip BMP every 4 hours Continue to monitor ABG Bicarbonate IV (2) Hypothyroidism Status: Chronic Problem Text: Continue Synthroid We will check thyroid profile, there is question about compliance to medication (3) Metabolic acidosis due to diabetes mellitus Status: Acute Problem Text: Continue to monitor blood gas Bicarbonate IV Continue IV infusion of normal saline with potassium (4) SIRS (systemic inflammatory response syndrome) Status: Acute Problem Text: Patient has tachycardia, dyspnea and leukocytosis Mostly secondary to DKA Imaging study negative We'll check blood culture Patient afebrile (5) ANA (acute kidney injury) Status: Acute Problem Text: likely 2/2 to dehydration, prerenal etiology. C/w IVFs, monitor labs closely (6) Metabolic encephalopathy Status: Acute Problem Text: 2/2 to DKA, perhaps complicated by underlying mental health issues. C/w treatment above. Plan / VTE VTE Prophylaxis Ordered?: Yes SYED BROWN DO Aug 12, 2020 08:43
[2020-08-12] MEDS ORDERED: HumuLIN R (REGULAR) INSULIN (NovoLIN R) **100U/ML** PER UNIT IV SCH (09:00)
[2020-08-12] MEDS ORDERED: SODIUM BICARBONATE 8.4% INJ 50 ML SYRINGE IV SCH (09:30)
[2020-08-12] MEDS ORDERED: KCL 20MEQ in NS 1000ML 1,000 ML IV SCH (09:30)
[2020-08-12] MEDS: PANTOPRAZOLE 40MG VIAL (C9113 PER 1) IV SCH (09:39)
[2020-08-12 09:40] LABS: HEMOGLOBIN A1c 11.7 %
[2020-08-12] MEDS: LEVOTHYROXINE 150MCG TABLET (0.15MG) PO SCH ×2 (09:40→11:14)
[2020-08-12] MEDS: ENOXAPARIN 40MG/0.4ML SYRINGE (J1650 PER 10MG) SC SCH (09:40)
[2020-08-12] MEDS: INSULIN IV RATE CHANGE DOCUMENTATION ML/HR XX SCH ×4 (10:01→15:04)
[2020-08-12 11:08] LABS: ABG BASE EXCESS -16.1 (-2.0-2.0); ABG HCO3 7.3 MEQ/L (22.0-26.0); ABG O2 SATURATION 98.4 % (95.0-99.0); ABG STANDARD HCO3 12.5 MEQ/L (22.0-26.0); ABG TOTAL CO2 7.8 MEQ/L (22.0-29.0); ABG pH (ARTERIAL) 7.309 UNITS (7.350-7.450)
[2020-08-12 11:09] LABS: ABG PARTIAL PRESSURE CO2 14.9 mmHg (35.0-45.0)
[2020-08-12 11:43] LABS: INR 1.14; PROTHROMBIN TIME 14.9 SECONDS (12.5-14.3)
[2020-08-12 11:44] LABS: PARTIAL THROMBOPLASTIN TIME 30.3 SECONDS (24.2-38.5)
[2020-08-12 11:57] LABS: BLOOD UREA NITROGEN 13 MG/DL (7-18); CARBON DIOXIDE LEVEL 10 MEQ/L (21-32); CHLORIDE LEVEL 111 MEQ/L (98-107); CREATININE FOR GFR 0.88 MG/DL (0.70-1.30); GLOMERULAR FILTRATION RATE > 60.0 (>60); GLUCOSE, FASTING 92 MG/DL (70-100); MAGNESIUM LEVEL 1.6 MG/DL (1.8-2.4); POTASSIUM SERUM 3.6 MEQ/L (3.5-5.1); SODIUM LEVEL 139 MEQ/L (136-145)
[2020-08-12] MEDS ORDERED: KCL 20MEQ IN D5W 1000ML 1,000 ML IV SCH (12:00)
[2020-08-12] MEDS ORDERED: MAG SULF 1GM/100ML (MAG RUN) 1 GM in IV 1 EA IV ONE (13:00)
[2020-08-12] MEDS ORDERED: KCL 20MEQ IN 100ML SWI (KRUN) 20 MEQ in IV 1 EA IV ONE ×4 (13:00→14:00)
[2020-08-12 16:03] LABS: VENOUS BASE EXCESS -14.2 (-2.0-2.0); VENOUS HCO3 10.5 MEQ/L (23.0-27.0); VENOUS PARTIAL PRESSURE CO2 22.9 mmHg (38.0-50.0); VENOUS PARTIAL PRESSURE O2 97.7 mmHg (30.0-50.0); VENOUS STANDARD HCO3 13.7 MEQ/L; VENOUS TOTAL CO2 11.2 MEQ/L (24.0-28.0); VENOUS VENT MODE U
[2020-08-12 16:36] LABS: BLOOD UREA NITROGEN 11 MG/DL (7-18); CALCIUM LEVEL 7.9 MG/DL (8.5-10.1); CARBON DIOXIDE LEVEL 11 MEQ/L (21-32); CHLORIDE LEVEL 109 MEQ/L (98-107); CREATININE FOR GFR 1.04 MG/DL (0.70-1.30); GLOMERULAR FILTRATION RATE > 60.0 (>60); GLUCOSE, FASTING 153 MG/DL (70-100); MAGNESIUM LEVEL 1.8 MG/DL (1.8-2.4); PHOSPHORUS LEVEL 0.9 MG/DL (2.5-4.9); POTASSIUM SERUM 4.1 MEQ/L (3.5-5.1); SODIUM LEVEL 136 MEQ/L (136-145)
[2020-08-12] MEDS ORDERED: GLUCAGON INJ 1MG VIAL SC PRN (17:15)
[2020-08-12] MEDS ORDERED: GLUCOSE 4GM CHEW TABLET PO PRN (17:15)
[2020-08-12] MEDS ORDERED: DEXTROSE 50% 50 ML SYRINGE IV PRN (17:15)
[2020-08-12] MEDS: HumaLOG INSULIN (NovoLOG) PER UNIT SC SCH ×2 (17:30→20:49)
[2020-08-12] MEDS: LEVEMIR (INSULIN DETEMIR) 1 UNITS/0.01ML SC SCH ×2 (17:38→20:49)
[2020-08-12 20:02] LABS: VENOUS BASE EXCESS -13.3 (-2.0-2.0); VENOUS HCO3 11.4 MEQ/L (23.0-27.0); VENOUS O2 SATURATION 98.5 % (60.0-80.0); VENOUS PARTIAL PRESSURE CO2 24.2 mmHg (38.0-50.0); VENOUS PARTIAL PRESSURE O2 113.1 mmHg (30.0-50.0); VENOUS STANDARD HCO3 14.3 MEQ/L; VENOUS TOTAL CO2 12.1 MEQ/L (24.0-28.0)
[2020-08-12 20:26] LABS: BLOOD UREA NITROGEN 9 MG/DL (7-18); CALCIUM LEVEL 8.6 MG/DL (8.5-10.1); CARBON DIOXIDE LEVEL 13 MEQ/L (21-32); CHLORIDE LEVEL 108 MEQ/L (98-107); CREATININE FOR GFR 1.06 MG/DL (0.70-1.30); GLOMERULAR FILTRATION RATE > 60.0 (>60); GLUCOSE, FASTING 211 MG/DL (70-100); PHOSPHORUS LEVEL 1.8 MG/DL (2.5-4.9); POTASSIUM SERUM 4.1 MEQ/L (3.5-5.1); SODIUM LEVEL 135 MEQ/L (136-145)
[2020-08-13] VITALS (12 sets, daily range): BP systolic 95–122; BP diastolic 58–78
[2020-08-13 00:07] LABS: VENOUS HCO3 9.3 MEQ/L (23.0-27.0); VENOUS O2 SATURATION 94.5 % (60.0-80.0); VENOUS PARTIAL PRESSURE CO2 19.8 mmHg (38.0-50.0); VENOUS PARTIAL PRESSURE O2 67.4 mmHg (30.0-50.0); VENOUS STANDARD HCO3 13.1 MEQ/L; VENOUS TOTAL CO2 9.9 MEQ/L (24.0-28.0)
[2020-08-13 00:40] LABS: BLOOD UREA NITROGEN 12 MG/DL (7-18); CALCIUM LEVEL 8.4 MG/DL (8.5-10.1); CARBON DIOXIDE LEVEL 11 MEQ/L (21-32); CHLORIDE LEVEL 106 MEQ/L (98-107); CREATININE FOR GFR 1.05 MG/DL (0.70-1.30); GLOMERULAR FILTRATION RATE > 60.0 (>60); GLUCOSE, FASTING 298 MG/DL (70-100); PHOSPHORUS LEVEL 1.4 MG/DL (2.5-4.9); POTASSIUM SERUM 3.8 MEQ/L (3.5-5.1); SODIUM LEVEL 132 MEQ/L (136-145)
[2020-08-13] MEDS ORDERED: POTASSIUM PHOSPHATE INJ 15 MMOL in D5W 250 ML IV ONE (01:30)
[2020-08-13] MEDS ORDERED: LEVEMIR (INSULIN DETEMIR) 1 UNITS/0.01ML SC ONE (01:30)
[2020-08-13 06:41] LABS: BASO % 0.1 % (0.0-1.0); EOS % 0.1 % (0.0-3.0); HEMATOCRIT 36.5 % (42.0-52.0); LYMPH # 1.4 10^3/uL (1.5-5.0); LYMPH % 12.2 % (24.0-44.0); MEAN CORPUSCULAR HEMOGLOBIN 28.6 pg (27.0-33.0); MEAN CORPUSCULAR HGB CONC 34.5 g/dl (32.0-36.5); MEAN CORPUSCULAR VOLUME 82.8 fl (80.0-96.0); MONO # 1.4 10^3/uL (0.0-0.8); MONO % 12.9 % (0.0-5.0); NEUTROPHILS # 8.3 10^3/uL (1.5-8.5); NEUTROPHILS % 74.3 % (36.0-66.0); PLATELET COUNT, AUTOMATED 324 10^3/uL (150-450); RED BLOOD COUNT 4.41 10^6/uL (4.30-6.10); WHITE BLOOD COUNT 11.2 10^3/uL (4.0-10.0)
[2020-08-13 06:59] LABS: HEMOGLOBIN 12.6 g/dl (13.5-17.5)
[2020-08-13 07:10] LABS: BLOOD UREA NITROGEN 9 MG/DL (7-18); CALCIUM LEVEL 8.1 MG/DL (8.5-10.1); CARBON DIOXIDE LEVEL 15 MEQ/L (21-32); CHLORIDE LEVEL 106 MEQ/L (98-107); CREATININE FOR GFR 0.99 MG/DL (0.70-1.30); GLOMERULAR FILTRATION RATE > 60.0 (>60); GLUCOSE, FASTING 274 MG/DL (70-100); MAGNESIUM LEVEL 1.8 MG/DL (1.8-2.4); PHOSPHORUS LEVEL 1.9 MG/DL (2.5-4.9); POTASSIUM SERUM 3.6 MEQ/L (3.5-5.1); SODIUM LEVEL 134 MEQ/L (136-145)
[2020-08-13] MEDS: LEVEMIR (INSULIN DETEMIR) 1 UNITS/0.01ML SC SCH ×2 (08:11→20:31)
[2020-08-13] MEDS: HumaLOG INSULIN (NovoLOG) PER UNIT SC SCH ×4 (08:11→21:00)
[2020-08-13] MEDS: PANTOPRAZOLE 40MG VIAL (C9113 PER 1) IV SCH (08:11)
[2020-08-13] MEDS: ENOXAPARIN 40MG/0.4ML SYRINGE (J1650 PER 10MG) SC SCH (08:12)
--- NOTE | 2020-08-13 09:26 | IPNPDOC ---
Text Note Date of Service The patient was seen on 08/13/20. NOTE Subjective: Patient refused to take insulin in the outpatient settings. He st ated that he needs a second opinion and he would like to have appointment with his PCP to discuss insulin treatment. I explained to him all negative consequences of this decision. 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 Patient is lethargic and cannot provide a history, from ER sign out patient was admitted earlier with DKA and left the hospital AMA. He was brought back with lethargy and confusion. In ER patient was found to have leukocytosis of 21.7, glucose level of 403, lactic acid of 7.4, creatinine 1.6, anion gap of 25, VBG showed bicarbonate 6.2, pH 6.7. Imaging study negative for acute pathology Problems (1) Diabetic ketoacidosis Resolved Secondary to noncompliance to diabetes medication (2) Hypothyroidism TSH is<0.005, levothyroxine on hold (3) Metabolic acidosis due to diabetes mellitus Continue to monitor BMP (4) SIRS (systemic inflammatory response syndrome) Resolved Patient has tachycardia, dyspnea and leukocytosis Mostly secondary to DKA Imaging study negative blood culture negative Patient afebrile (5) ANA (acute kidney injury) Improved likely 2/2 to dehydration, prerenal etiology. C/w IVFs, monitor labs closely (6) Metabolic encephalopathy 2/2 to DKA, perhaps complicated by underlying mental health issues. C/w treatment above. Plan / VTE VTE Prophylaxis Ordered?: Yes VS,Melissa, I+O VS, Darrylbone, I+O Laboratory Tests 08/12/20 10:58 08/12/20 15:50 08/12/20 19:51 08/13/20 00:00 08/13/20 06:14 Vital Signs Date Time Temp Pulse Resp B/P (MAP) Pulse Ox O2 Delivery O2 Flow Rate FiO2 08/13/20 08:00 97.9 114 20 104/69 (81) 99 Room Air I&O- Last 24 Hours up to 6 AM 08/13/20 06:00 Intake Total 6531 ml Output Total 5925 ml Balance 606 ml SYED BROWN DO Aug 13, 2020 09:26
[2020-08-13] MEDS ORDERED: MIRALAX *UNIT DOSE* 17GM PACKET PO PRN (09:30)
[2020-08-13] MEDS ORDERED: POTASSIUM CHLORIDE 10 MEQ SR TABLET PO ONE (09:45)
[2020-08-14 06:00] VITALS: BP 113/77
[2020-08-14 07:26] LABS: BLOOD UREA NITROGEN 8 MG/DL (7-18); CALCIUM LEVEL 8.3 MG/DL (8.5-10.1); CARBON DIOXIDE LEVEL 27 MEQ/L (21-32); CHLORIDE LEVEL 107 MEQ/L (98-107); CREATININE FOR GFR 0.74 MG/DL (0.70-1.30); GLOMERULAR FILTRATION RATE > 60.0 (>60); GLUCOSE, FASTING 161 MG/DL (70-100); POTASSIUM SERUM 3.1 MEQ/L (3.5-5.1); SODIUM LEVEL 141 MEQ/L (136-145)
[2020-08-14] MEDS: HumaLOG INSULIN (NovoLOG) PER UNIT SC SCH ×4 (07:46→21:00)
[2020-08-14] MEDS: LEVEMIR (INSULIN DETEMIR) 1 UNITS/0.01ML SC SCH ×2 (07:46→21:36)
[2020-08-14] MEDS: ENOXAPARIN 40MG/0.4ML SYRINGE (J1650 PER 10MG) SC SCH (07:47)
[2020-08-14] MEDS: PANTOPRAZOLE 40MG VIAL (C9113 PER 1) IV SCH (07:47)
--- NOTE | 2020-08-14 11:08 | IPNPDOC ---
Text Note Date of Service The patient was seen on 08/14/20. NOTE Subjective: No any acute events overnight. 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 Patient is lethargic and cannot provide a history, from ER sign out patient was admitted earlier with DKA and left the hospital AMA. He was brought back with lethargy and confusion. In ER patient was found to have leukocytosis of 21.7, glucose level of 403, lactic acid of 7.4, creatinine 1.6, anion gap of 25, VBG showed bicarbonate 6.2, pH 6.7. Imaging study negative for acute pathology Problems (1) Diabetic ketoacidosis Resolved Secondary to noncompliance to diabetes medication (2) Hypothyroidism TSH is<0.005, levothyroxine on hold (3) Metabolic acidosis due to diabetes mellitus Continue to monitor BMP (4) SIRS (systemic inflammatory response syndrome) Resolved Patient has tachycardia, dyspnea and leukocytosis Mostly secondary to DKA Imaging study negative blood culture negative Patient afebrile (5) ANA (acute kidney injury) Improved likely 2/2 to dehydration, prerenal etiology. C/w IVFs, monitor labs closely (6) Metabolic encephalopathy Resolved 2/2 to DKA, perhaps complicated by underlying mental health issues. C/w treatment above. Plan / VTE VTE Prophylaxis Ordered?: Yes VS,Fishbone, I+O VS, Fishbone, I+O Laboratory Tests 08/14/20 06:22 Vital Signs Date Time Temp Pulse Resp B/P (MAP) Pulse Ox O2 Delivery O2 Flow Rate FiO2 08/14/20 06:00 98.3 72 17 113/77 (89) 99 Room Air I&O- Last 24 Hours up to 6 AM 08/14/20 06:00 Intake Total 2230 ml Output Total 800 ml Balance 1430 ml SYED BROWN DO Aug 14, 2020 11:08
[2020-08-14] MEDS ORDERED: PILL CUTTER 1 EACH XX PRN (11:30)
[2020-08-14] MEDS ORDERED: POTASSIUM CHLORIDE 10 MEQ SR TABLET PO ONE (11:30)
[2020-08-14] MEDS ORDERED: LANC30MI XX (11:35)
[2020-08-14] MEDS ORDERED: LANTINJ4 SC (11:35)
[2020-08-14] MEDS ORDERED: GLUC1TES2 XX ×2 (11:35→14:11)
[2020-08-14] MEDS ORDERED: PEN1MIS23 SC (11:35)
[2020-08-14] MEDS ORDERED: ALCOPAD25 TOP (11:35)
[2020-08-14] MEDS ORDERED: BLOOKIT21 XX ×2 (11:35→14:11)
[2020-08-14] MEDS ORDERED: PEN1MIS22 SC (11:36)
[2020-08-14] MEDS: MAGNESIUM GLUCONATE 500 MG TAB PO SCH (13:59)
[2020-08-14 14:00] VITALS: BP 122/73
[2020-08-14] MEDS ORDERED: BASA100I SC ×4 (14:11→14:14)
[2020-08-14 22:00] VITALS: BP 109/71
[2020-08-15 05:34] LABS: HEMATOCRIT 35.4 % (42.0-52.0); MEAN CORPUSCULAR HEMOGLOBIN 28.6 pg (27.0-33.0); MEAN CORPUSCULAR HGB CONC 33.9 g/dl (32.0-36.5); MEAN CORPUSCULAR VOLUME 84.5 fl (80.0-96.0); PLATELET COUNT, AUTOMATED 258 10^3/uL (150-450); RED BLOOD COUNT 4.19 10^6/uL (4.30-6.10); WHITE BLOOD COUNT 6.5 10^3/uL (4.0-10.0)
[2020-08-15 05:50] LABS: BLOOD UREA NITROGEN 12 MG/DL (7-18); CALCIUM LEVEL 8.5 MG/DL (8.5-10.1); CARBON DIOXIDE LEVEL 29 MEQ/L (21-32); CHLORIDE LEVEL 106 MEQ/L (98-107); CREATININE FOR GFR 0.66 MG/DL (0.70-1.30); GLOMERULAR FILTRATION RATE > 60.0 (>60); GLUCOSE, FASTING 150 MG/DL (70-100); MAGNESIUM LEVEL 1.8 MG/DL (1.8-2.4); POTASSIUM SERUM 3.3 MEQ/L (3.5-5.1); SODIUM LEVEL 142 MEQ/L (136-145)
[2020-08-15 06:51] VITALS: BP 112/73
[2020-08-15] MEDS: HumaLOG INSULIN (NovoLOG) PER UNIT SC SCH ×2 (08:13→12:18)
[2020-08-15] MEDS: ENOXAPARIN 40MG/0.4ML SYRINGE (J1650 PER 10MG) SC SCH (08:14)
[2020-08-15] MEDS: MAGNESIUM GLUCONATE 500 MG TAB PO SCH (08:15)
[2020-08-15] MEDS ORDERED: POTASSIUM CHLORIDE 10 MEQ SR TABLET PO ONE (08:15)
[2020-08-15] MEDS ORDERED: LEVEMIR (INSULIN DETEMIR) 1 UNITS/0.01ML SC SCH (09:00)
[2020-08-15] MEDS ORDERED: OMEPRAZOLE 20 MG CAP PO SCH (09:00)
[2020-08-15] MEDS ORDERED: METF-839 PO (11:07)
[2020-08-15] MEDS ORDERED: LEVO75TA4 PO (11:07)
--- NOTE | 2020-08-15 13:43 | DS.PDOC ---
Discharge Summary General Date of Admission Aug 12, 2020 at 07:56 Date of Discharge 08/15/20 Discharge Summary PROCEDURES PERFORMED DURING STAY: [None]. ADMITTING DIAGNOSES: Diabetic ketoacidosis Hypothyroidism Metabolic acidosis due to diabetes mellitus SIRS (systemic inflammatory response syndrome) ANA (acute kidney injury) Metabolic encephalopathy DISCHARGE DIAGNOSES: Diabetic ketoacidosis Hypothyroidism Metabolic acidosis due to diabetes mellitus SIRS (systemic inflammatory response syndrome) ANA (acute kidney injury) Metabolic encephalopathy COMPLICATIONS/CHIEF COMPLAINT: Diabetic Ketoacidosis,Hypothyroidism. 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 Patient is lethargic and cannot provide a history, from ER sign out patient was admitted earlier with DKA and left the hospital AMA. He was brought back with lethargy and confusion. In ER patient was found to have leukocytosis of 21.7, glucose level of 403, lactic acid of 7.4, creatinine 1.6, anion gap of 25, VBG showed bicarbonate 6.2, pH 6.7. Imaging study negative for acute pathology HOSPITAL COURSE: During hospital stay following issue addressed (1) Diabetic ketoacidosis Resolved. Patient received treatment with insulin drip Secondary to noncompliance to diabetes medication (2) Hypothyroidism TSH is<0.005, levothyroxine on hold (3) Metabolic acidosis due to diabetes mellitus Continue to monitor BMP (4) SIRS (systemic inflammatory response syndrome) Resolved Patient has tachycardia, dyspnea and leukocytosis Mostly secondary to DKA Imaging study negative blood culture negative Patient afebrile (5) ANA (acute kidney injury) Improved likely 2/2 to dehydration, prerenal etiology. C/w IVFs, monitor labs closely (6) Metabolic encephalopathy Resolved 2/2 to DKA, perhaps complicated by underlying mental health issues. C/w treatment above. DISCHARGE MEDICATIONS: Please see below. ALLERGIES: Please see below. PHYSICAL EXAMINATION ON DISCHARGE: VITAL SIGNS: Please see below. GENERAL APPEARANCE: NAD HEENT: no scleral icterus, no JVD, EOMI CARDIOVASCULAR: S1S2 LUNGS: CTA ABDOMEN: soft & not tender w palpitation MUSCULOSKELETAL: no cyanosis, no swelling INTEGUMENT: no generalized palor NEUROLOGICAL: cranial nerve function from 2-12 intact intact, follows commands, speech not dysarthric LABORATORY DATA: Please see below. IMAGING: [facility] NAME: EMY OBRIEN DATE OF : 1975 BUSINESS NUMBER: [id number] AGE: 45 SEX: M REPORT #: [id number] ROOM: [facility] IN TECHNOLOGIST: [id number] DOCTOR: Nicola Perez MD Ordered for Date&Time: 08/12/20712 cc: [~ rep ct ivnm] Service Date&Time: 08/12/20734 This report is in Signed status. Interpretation performed by [facility]. Thank you for having your radiology procedures performed at [facility] RADIOLOGY REPORT Date&Time printed: [~ rep prt dt last] [~ rep prt tm last] Page 2 of 2 [place] [id number] RADIOLOGY REPORT This report is in Signed status. Interpretation performed by [facility]. Thank you for having your radiology procedures performed at [facility] RADIOLOGY REPORT Date&Time printed: [~ rep prt dt last] [~ rep prt tm last] Page 1 of 1 PROCEDURE INFORMATION: Exam: CT Abdomen And Pelvis With Contrast Exam date and time: 08/12/2020 7:35 AM Age: 45 years old Clinical indication: Abnormal findings; Abnormal lab test; Elevated wbc; Additional info: Elev wbc TECHNIQUE: Imaging protocol: Computed tomography of the abdomen and pelvis with intravenous contrast. Radiation optimization: All CT scans at this facility use at least one of these dose optimization techniques: automated exposure control; mA and/or kV adjustment per patient size (includes targeted exams where dose is matched to clinical indication); or iterative reconstruction. Contrast material: ISOVUE 370; Contrast volume: 100 ml; Contrast route: INTRAVENOUS (IV); COMPARISON: SR CT ABD W/IV CONTRAST ONLY 02/21/2020 8:33 AM FINDINGS: Tubes, catheters and devices: Left groin central venous catheter terminating in the left common iliac vein. Liver: Normal. No mass. Gallbladder and bile ducts: Normal. No calcified stones. No ductal dilation. Pancreas: Normal. No ductal dilation. Spleen: Normal. No splenomegaly. Adrenal glands: Normal. No mass. Kidneys and ureters: Simple bilateral renal cysts. Stomach and bowel: Mild bowel wall thickening predominantly involving transverse colon. Under distension is favored. Colitis cannot be completely excluded. Diverticulosis of the colon. No specific evidence of acute diverticulitis. Distended stomach. Appendix: No evidence of appendicitis. Intraperitoneal space: Unremarkable. No free air. No significant fluid collection. Vasculature: Unremarkable. No abdominal aortic aneurysm. Lymph nodes: Unremarkable. No enlarged lymph nodes. Urinary bladder: Ferro balloon catheter in the urinary bladder. Reproductive: Unremarkable as visualized. Bones/joints: Unremarkable. No acute fracture. Soft tissues: Unremarkable. Other findings: Severely degraded by motion. IMPRESSION: Severely degraded by motion. Mild bowel wall thickening predominantly involving transverse colon. Under distension is favored. Colitis cannot be completely excluded. Diverticulosis of the colon. No specific evidence of acute diverticulitis. COMMENTS: Consistent with the [employer]'s Incidental Findings Committee white paper (J Am Velvet Radiol 2018): Any incidental renal lesion less than 1 cm or classified as too small to characterize, or any incidental cystic renal lesion characterized as simple-appearing, is likely benign. No follow-up imaging is recommended for these lesions per consensus recommendations based on imaging criteria. Electronically signed by: Surinder Mays On 08/12/2020 08:16:47 AM DD: SURINDER MAYS MD 08/12/20 0735 DT: GERRI 08/12/20815 DS: LEIGHTON 08/12/20815 [~ rep ct labl] PROGNOSIS: Fair ACTIVITY: [As tolerated]. DIET: Diabetes diet DISPOSITION: Home DISCHARGE INSTRUCTIONS: Stopped taking levothyroxine till check TSH in 3-5 days Check blood glucose level before each meal Follow-up with PCP in 2 days DISCHARGE CONDITION: [Stable]. TIME SPENT ON DISCHARGE: Greater than 40 minutes. Vital Signs/I&Os Vital Signs Date Time Temp Pulse Resp B/P (MAP) Pulse Ox O2 Delivery O2 Flow Rate FiO2 08/15/20 06:51 98.7 75 18 112/73 (86) 95 Room Air I&O- Last 24 Hours up to 6 AM 08/15/20 06:00 Intake Total 3465 ml Balance 3465 ml Laboratory Data Labs 24H Laboratory Tests 2 08/14/20 16:24: Bedside Glucose (Misc Panel) 230H 08/14/20 20:18: Bedside Glucose (Misc Panel) 223H 08/15/20 04:47: Nucleated Red Blood Cells % (auto) 0.0, Anion Gap 7L, Glomerular Filtration Rate > 60.0, Calcium Level 8.5, Magnesium Level 1.8 08/15/20 11:57: Bedside Glucose (Misc Panel) 171H CBC/BMP Laboratory Tests 08/15/20 04:47 FSBS Laboratory Tests Test 08/14/20 16:24 08/14/20 20:18 08/15/20 11:57 Range/Units Bedside Glucose (Misc Panel) 230 223 171 70-105 MG/DL Microbiology Microbiology 08/12/20 Blood Culture - Preliminary, Resulted No Growth after 72 hours. All specime... 08/12/20 Blood Culture - Preliminary, Resulted No Growth after 72 hours. All specime... Discharge Medications Scheduled Blood Sugar Diagnostic (Advanced Glucose Test Strips) 1 Each Strip, 1 STRIP XX ACHS Cholecalciferol (Vitamin D3) (Vitamin D3) 1,000 Unit Tablet, 2,000 UNITS PO DAILY, (Reported) Insulin Glargine,Hum.rec.anlog (Basaglar Kwikpen U-100) 100 Unit/1 Ml Insuln.pen, 30 UNITS SC QHS Levothyroxine Sodium (Levothyroxine Sodium) 75 Mcg Tablet, 75 MCG PO DAILY Metformin HCl (Metformin HCl) 500 Mg Tablet, 500 MG PO BID Multivitamin (Multivitamins) 1 Each Capsule, 1 CAP PO DAILY, (Reported) Allergies Coded Allergies: No Known Allergies (Verified , 06/24/12) SYED BROWN DO Aug 15, 2020 13:43
== END 2020-08-15 15:30 | disposition home health service (06) | DRG 420 ==
LOC: M ED 03:41 → EDBD 03:41 → M ED INP 07:56 → M ICU 09:00 → M MS5PR 08-13 10:51
PROVIDERS: ADMIT Internal Medicine; ATTEND Internal Medicine
DX: E11.10 Type 2 diabetes mellitus with ketoacidosis without coma (principal); G93.41 Metabolic encephalopathy; N17.9 Acute kidney failure, unspecified; R65.10 Systemic inflammatory response syndrome (SIRS) of non-infectious origin without acute organ dysfunction; E03.9 Hypothyroidism, unspecified; F29 Unspecified psychosis not due to a substance or known physiological condition; Z79.899 Other long term (current) drug therapy; Z91.14 Patient's other noncompliance with medication regimen

== ENCOUNTER 2021-01-01 12:22 | Inpatient (IN) | payer OTHER ==
[~2021-01-01] VITALS: Ht 182.9 cm; Wt 101.1 kg
[~2021-01-01 12:22] MED LIST changes: +BASA100I SC; +LANTINJ4 SC; +LEVO75TA4 PO; +METF-839 PO; +PEN1MIS22 SC; +PEN1MIS23 SC
[2021-01-01] MEDS ORDERED: AUGM875T28 PO (15:25)
[2021-01-01] MEDS ORDERED: BENZOCAINE 20% GEL 9GM TUBE (ANBESOL MAX STRENGTH) TOP ONE (15:25)
[2021-01-01] MEDS ORDERED: ACETAMINOPHEN 500 MG TAB PO ONE (15:25)
[2021-01-01] MEDS ORDERED: IBUP80TA PO (15:25)
[2021-01-01 16:41] LABS: BASO # 0.1 10^3/uL (0.0-0.2); BASO % 0.6 % (0.0-1.0); EOS # 0.1 10^3/uL (0.0-0.5); HEMOGLOBIN 18.1 g/dl (13.5-17.5); LYMPH # 2.1 10^3/uL (1.5-5.0); LYMPH % 22.1 % (24.0-44.0); MEAN CORPUSCULAR HEMOGLOBIN 28.5 pg (27.0-33.0); MEAN CORPUSCULAR HGB CONC 34.2 g/dl (32.0-36.5); MEAN CORPUSCULAR VOLUME 83.5 fl (80.0-96.0); MONO # 0.6 10^3/uL (0.0-0.8); MONO % 5.8 % (2.0-8.0); NEUTROPHILS # 6.6 10^3/uL (1.5-8.5); NEUTROPHILS % 70.1 % (36.0-66.0); PLATELET COUNT, AUTOMATED 344 10^3/uL (150-450); RED BLOOD COUNT 6.35 10^6/uL (4.30-6.10); WHITE BLOOD COUNT 9.4 10^3/uL (4.0-10.0)
[2021-01-01 17:01] LABS: AMPHETAMINES LEVEL URINE NEGATIVE (NEGATIVE); BARBITURATES URINE NEGATIVE (NEGATIVE); BENZODIAZEPINES URINE NEGATIVE (NEGATIVE); CANNABINOIDS URINE NEGATIVE (NEGATIVE); COCAINE METABOLITE URINE NEGATIVE (NEGATIVE); METHADONE URINE NEGATIVE (NEGATIVE); OPIATES URINE NEGATIVE (NEGATIVE); PHENCYCLIDINE URINE NEGATIVE (NEGATIVE)
[2021-01-01 17:18] LABS: ACETAMINOPHEN LEVEL 9.4 UG/ML (10.0-30.0); ALBUMIN 4.6 GM/DL (3.2-5.2); ALT/SGPT 21 U/L (12-78); BILIRUBIN,DIRECT 0.2 MG/DL (0.0-0.2); BILIRUBIN,TOTAL 0.8 MG/DL (0.2-1.0); BLOOD UREA NITROGEN 10 MG/DL (7-18); CALCIUM LEVEL 10.2 MG/DL (8.5-10.1); CARBON DIOXIDE LEVEL 20 MEQ/L (21-32); CHLORIDE LEVEL 95 MEQ/L (98-107); CREATININE FOR GFR 1.12 MG/DL (0.70-1.30); ETHYL ALCOHOL (ETHANOL) < 0.003 % (0.000-0.010); FREE T4 1.15 NG/DL (0.76-1.46); GLOMERULAR FILTRATION RATE > 60.0 (>60); GLUCOSE, FASTING 439 MG/DL (70-100); POTASSIUM SERUM 4.8 MEQ/L (3.5-5.1); SALICYLATE LEVEL 5.3 MG/DL (5.0-30.0); SODIUM LEVEL 130 MEQ/L (136-145); THYROID STIMULATING HORMONE 0.696 uIU/ML (0.358-3.740); TOTAL PROTEIN 8.4 GM/DL (6.4-8.2)
[2021-01-01 18:08] LABS: HEMOGLOBIN A1c 12.1 %
[2021-01-01] MEDS ORDERED: HumuLIN R (REGULAR) INSULIN (NovoLIN R) **100U/ML** PER UNIT SC STA (18:19)
[2021-01-01 18:29] LABS: OSMOLALITY SERUM 304 MOSM/KG (275-295)
[2021-01-01 18:34] LABS: ACETONE/KETONE > 46.00 MG/DL (<2.81)
[2021-01-01] MEDS ORDERED: NS 1,000 ML IV ONE (19:45)
[2021-01-01 20:06] LABS: VENOUS BASE EXCESS -6.2 (-2.0-2.0); VENOUS HCO3 19.9 MEQ/L (23.0-27.0); VENOUS O2 SATURATION 48.8 % (60.0-80.0); VENOUS PARTIAL PRESSURE CO2 41.5 mmHg (38.0-50.0); VENOUS PARTIAL PRESSURE O2 26.1 mmHg (30.0-50.0); VENOUS PH 7.298 UNITS (7.330-7.430); VENOUS STANDARD HCO3 18.2 MEQ/L; VENOUS TOTAL CO2 21.1 MEQ/L (24.0-28.0)
[2021-01-01 20:33] LABS: APPEARANCE, URINE CLEAR (CLEAR); BACTERIA, URINE AUTO NEGATIVE (NEGATIVE); BILIRUBIN, URINE AUTO NEGATIVE (NEGATIVE); BLOOD, URINE BLOOD NEGATIVE (NEGATIVE); COLOR, URINE STRAW (YELLOW); GLUCOSE, URINE (UA) AUTO 3+ mg/dL (NEGATIVE); KETONE, URINE AUTO 2+ mg/dL (NEGATIVE); LEUKOCYTE ESTERASE, URINE AUTO NEGATIVE (NEGATIVE); MUCUS, URINE SMALL (NEGATIVE); NITRITE, URINE AUTO NEGATIVE (NEGATIVE); PROTEIN, URINE AUTO NEGATIVE (NEGATIVE); RBC, URINE AUTO 0 /HPF (0-3); SPECIFIC GRAVITY URINE AUTO 1.036 (1.002-1.035); SQUAMOUS EPITHELIAL CELL UR AU 0 /HPF (0-6); UROBILINOGEN, URINE AUTO 0.2 mg/dL (0.0-2.0); WBC, URINE AUTO 1 /HPF (0-3)
[2021-01-01] MEDS ORDERED: SYNT75TA PO (20:34)
[2021-01-01] MEDS ORDERED: SYNT150T PO (20:36)
[2021-01-01] MEDS ORDERED: INSULIN REGULAR IN 0.9 % NACL 100 UNIT in IV 1 EA IV SCH ×2 (20:54)
[2021-01-01] MEDS ORDERED: INSULIN IV RATE CHANGE DOCUMENTATION ML/HR XX SCH (20:55)
[2021-01-01] MEDS ORDERED: ACETAMINOPHEN TAB 650MG DOSE (2X325MG) PO PRN (20:55)
--- NOTE | 2021-01-01 21:00 | HPEPDOC ---
[facility] Medical History & Physical Date of Admission Jan 01, 2021 Date of Service: Jan 01, 2021 Other Provider July CASTRO Attending Physician: ALEXEY GUTIÉRREZ MD History and Physical TIME OF SERVICE: 920pm CHIEF COMPLAINT: tooth ache HISTORY OF PRESENT ILLNESS: This 45 yr old M was admitted to [facility] in February of last year for new-onset DM and then in July for DKA 2/2 non-compliance with his medications. Today he presented w c/o a tooth aches for about 2 weeks. He has several carries and reports that the pain is up to 7 or 8/10 at times. Today he came to the ER because he wanted a nuclear scan because he was worried that he has a brain infection; he came to the conclusion that he needs the scan after talking to someone at the [facility] who instructed him to come to the ER. With regards to his DM he thinks that he was cleared because the last attending he saw when he was discharged signed some papers. He thought this indicate that he no longer has diabetes. The added that he has a limited budget and has been drinking mostly regular soda and iced tea. He is c/o feeling thirst and is requesting more soda. REVIEW OF SYSTEMS: 12-point review of systems negative except as listed in HPI PAST MEDICAL/ SURGICAL HISTORY: Hypothyroidism Unspecified long history of mental illness with psychoses (Schizophrenia ?) Diabetes type 2 Surgical History Tonsillectomy SOCIAL HISTORY: Lives alone and according to previous records has a son. He is a [place] and was in the [employer]. Denies any current alcohol or tobacco use, had used marijuana use in his 20s, and snorted cocaine 5-6 times. FAMILY HISTORY: History of multiple MIs with associated unspecified heart disease ALLERGIES: Please see below. HOME MEDICATIONS: Please see below. PHYSICAL EXAMINATION: Vital Signs Date Time Temp Pulse Resp B/P (MAP) Pulse Ox O2 Delivery O2 Flow Rate FiO2 01/01/21 12:22 97.6 109 18 119/80 (93) 96 Room Air GENERAL APPEARANCE: well nourished and developed/ NAD HEENT: EOMI / mucus membranes dry CARDIOVASCULAR: RRR/NMRG LUNGS: CTAB on RA ABDOMEN: obese MUSCULOSKELETAL: NCAT / THERESA x 4 INTEGUMENT: skin dry NEUROLOGICAL: CN 2-12 intact / speech not dysarthric PSYCHIATRIC: A&O / able to understand and follow commands/ speech slightly tangential & disorganised LABORATORY DATA: 01/01/21 15:49 01/01/21 21:35 01/02/21 01:03 01/01/21 15:33: Bedside Glucose (Misc Panel) 422H 01/01/21 15:49: Immature Granulocyte % (Auto) 0.4, Neutrophils (%) (Auto) 70.1H, Lymphocytes (%) (Auto) 22.1L, Monocytes (%) (Auto) 5.8, Eosinophils (%) (Auto) 1.0, Basophils (%) (Auto) 0.6, Neutrophils # (Auto) 6.6, Lymphocytes # (Auto) 2.1, Monocytes # (Auto) 0.6, Eosinophils # (Auto) 0.1, Basophils # (Auto) 0.1, Nucleated Red Blood Cells % (auto) 0.0, Anion Gap 15, Glomerular Filtration Rate > 60.0, Osmolality 304H, Calcium Level 10.2H, Total Bilirubin 0.8, Direct Bilirubin 0.2, Aspartate Amino Transf (AST/SGOT) 6L, Alanine Aminotransferase (ALT/SGPT) 21, Alkaline Phosphatase 133H, Total Protein 8.4H, Albumin 4.6, Albumin/Globulin Ratio 1.2, Thyroid Stimulating Hormone (TSH) 0.696, Free Thyroxine 1.15, Sa licylates Level 5.3, Urine Opiates Screen NEGATIVE, Urine Methadone Screen NEGATIVE, Acetaminophen Level 9.4L, Urine Barbiturates Screen NEGATIVE, Urine Phencyclidine Screen NEGATIVE, Urine Amphetamines Screen NEGATIVE, Urine Benzodiazepines Screen NEGATIVE, Urine Cocaine Metabolite Screen NEGATIVE, Urine Cannabinoids Screen NEGATIVE, Ethyl Alcohol Level < 0.003, B-Hydroxybutyrate > 46.00H 01/01/21 15:56: Urine Color STRAW, Urine Appearance CLEAR, Urine pH 5.0, Urine Specific [place] 1.036, Urine Protein NEGATIVE, Urine Glucose (Auto)(UA) 3+H, Urine Ketones (Auto) 2+H, Urine Blood NEGATIVE, Urine Nitrite NEGATIVE, Urine Bilirubin NEGATIVE, Urine Urobilinogen 0.2, Urine Leukocyte Esterase (Auto) NEGATIVE, Urine WBC (Auto) 1, Urine RBC (Auto) 0, Urine Hyaline Casts (Auto) 0, Urine Bacteria (Auto) NEGATIVE, Urine Squamous Epithelial Cells 0, Urine Mucus (Auto) SMALL, Urine Sperm (Auto) 01/01/21 17:22: Estimated Mean Plasma Glucose 301H, Hemoglobin A1c 12.1 01/01/21 19:49: Bedside Glucose (Misc Panel) 463H 01/01/21 20:02: Blood Gas Bicarbonate Standard 18.2, Venous Blood pH 7.298L, Venous Blood Partial Pressure CO2 41.5, Venous Blood Partial Pressure O2 26.1L, Venous Blood Total Carbon Dioxide 21.1L, Venous Blood HCO3 19.9L, Venous Blood Oxygen Saturation 48.8L, Venous Blood Base Excess -6.2L IMAGING: n/a MICROBIOLOGY: ASSESSMENT: is a 45 yr old w a hx of hypothyroidism, unspecified psychiatric disorder and DM2 with a history of non-compliance who presented w c/o a tooth ache and was admitted for DKA. PLAN: 1 DKA Diagnosed based on the presence of Glucose >250 + pH <7.30 + urine ketones or BHB + AG >12 Was triggered by drinking soda and iced tea while not taking insulin and possibly dental carries Plan: admit to ICU / Insulin drip per protocol/ IVF / f/u A1C / f/u accuchecks Q1H, BMP Q4H, venous PH Q4H, osmol Q4H, Mag Q4H, phosphorus Q4H/ DM education 2. Dental Carries Plan: f/u CT to r/o abscess / hold Augmentin while NPO and start Unasyn 3. Hypothyroidism Plan: Levothyroxine 4. Obesity with BMI of 30 complicates care DVT Px w Lovenox Dispo: likely home after at least 2 midnights stay Late entry 110AM The patients repeat blood work show that the DKA has resolved. Based on his weight we will bridge him with 25 units of long acting insulin with SSI, start a consistent carbohydrate diet, dc IVF and transfer him out of the ICU Laboratory Data CBC/BMP Laboratory Tests 01/01/21 15:49 Home Medications Scheduled Amoxicillin/Potassium Clav (Augmentin 875-125 Tablet) 1 Each Tablet, 1 TAB PO BID Levothyroxine Sodium (Synthroid) 150 Mcg Tablet, 150 MCG PO DAILY Scheduled PRN Ibuprofen (Ibuprofen) 800 Mg Tablet, 800 MG PO Q6H PRN for PAIN Allergies Coded Allergies: No Known Allergies (Verified , 06/24/12) ALEXEY GUTIÉRREZ MD Jan 01, 2021 21:00
[2021-01-01 21:56] LABS: RSV AMPLIFICATION NEGATIVE (NEGATIVE)
[2021-01-01] MEDS ORDERED: AMPICILLIN SOD/SULBACTAM SOD 1.5 GM in D5W MINI-BAG PLUS 50 ML IV SCH (22:00)
[2021-01-01 22:06] LABS: VENOUS HCO3 19.5 MEQ/L (23.0-27.0); VENOUS O2 SATURATION 36.2 % (60.0-80.0); VENOUS PARTIAL PRESSURE CO2 42.3 mmHg (38.0-50.0); VENOUS PARTIAL PRESSURE O2 20.9 mmHg (30.0-50.0); VENOUS PH 7.281 UNITS (7.330-7.430); VENOUS STANDARD HCO3 17.5 MEQ/L; VENOUS TOTAL CO2 20.8 MEQ/L (24.0-28.0)
[2021-01-01 22:30] LABS: HEMOGLOBIN A1c 13.2 %
[2021-01-01 22:34] LABS: OSMOLALITY SERUM 310 MOSM/KG (275-295)
[2021-01-01 22:49] LABS: BLOOD UREA NITROGEN 15 MG/DL (7-18); CALCIUM LEVEL 8.6 MG/DL (8.5-10.1); CARBON DIOXIDE LEVEL 21 MEQ/L (21-32); CHLORIDE LEVEL 98 MEQ/L (98-107); GLOMERULAR FILTRATION RATE > 60.0 (>60); GLUCOSE, FASTING 414 MG/DL (70-100); MAGNESIUM LEVEL 1.9 MG/DL (1.8-2.4); PHOSPHORUS LEVEL 4.2 MG/DL (2.5-4.9); POTASSIUM SERUM 4.4 MEQ/L (3.5-5.1); SODIUM LEVEL 132 MEQ/L (136-145)
[2021-01-02] VITALS: BP 120/83
[2021-01-02] MEDS ORDERED: AMPICILLIN SOD/SULBACTAM SOD 1.5 GM in D5W MINI-BAG PLUS 50 ML IV SCH ×2
[2021-01-02] MEDS: KCL 20MEQ in NS 1000ML 1,000 ML IV SCH ×2 (00:20→00:42)
[2021-01-02] MEDS ORDERED: GLUCAGON INJ 1MG VIAL SC PRN (00:40)
[2021-01-02] MEDS ORDERED: GLUCOSE 4GM CHEW TABLET PO PRN (00:40)
[2021-01-02] MEDS ORDERED: DEXTROSE 50% 50 ML SYRINGE IV PRN (00:40)
[2021-01-02] MEDS ORDERED: D5W/0.45% SODIUM CHLORIDE 1,000 ML IV SCH (00:55)
[2021-01-02 01:09] LABS: VENOUS BASE EXCESS -5.9 (-2.0-2.0); VENOUS PARTIAL PRESSURE O2 42.1 mmHg (30.0-50.0); VENOUS PH 7.244 UNITS (7.330-7.430); VENOUS STANDARD HCO3 19.1 MEQ/L; VENOUS TOTAL CO2 23.6 MEQ/L (24.0-28.0)
[2021-01-02] MEDS ORDERED: LEVEMIR (INSULIN DETEMIR) 1 UNITS/0.01ML SC ONE (01:10)
[2021-01-02 01:38] LABS: OSMOLALITY SERUM 301 MOSM/KG (275-295)
[2021-01-02 01:41] LABS: BLOOD UREA NITROGEN 13 MG/DL (7-18); CALCIUM LEVEL 8.8 MG/DL (8.5-10.1); CARBON DIOXIDE LEVEL 24 MEQ/L (21-32); CHLORIDE LEVEL 104 MEQ/L (98-107); CREATININE FOR GFR 0.95 MG/DL (0.70-1.30); GLOMERULAR FILTRATION RATE > 60.0 (>60); GLUCOSE, FASTING 204 MG/DL (70-100); MAGNESIUM LEVEL 1.9 MG/DL (1.8-2.4); PHOSPHORUS LEVEL 3.1 MG/DL (2.5-4.9); POTASSIUM SERUM 4.8 MEQ/L (3.5-5.1); SODIUM LEVEL 137 MEQ/L (136-145)
[2021-01-02 04:00] VITALS: BP 116/80
[2021-01-02 05:04] LABS: MEAN CORPUSCULAR HEMOGLOBIN 28.6 pg (27.0-33.0); MEAN CORPUSCULAR HGB CONC 34.1 g/dl (32.0-36.5); PLATELET COUNT, AUTOMATED 291 10^3/uL (150-450); RED BLOOD COUNT 5.24 10^6/uL (4.30-6.10); WHITE BLOOD COUNT 8.9 10^3/uL (4.0-10.0)
[2021-01-02 05:30] LABS: BLOOD UREA NITROGEN 12 MG/DL (7-18); CALCIUM LEVEL 8.3 MG/DL (8.5-10.1); CARBON DIOXIDE LEVEL 23 MEQ/L (21-32); CHLORIDE LEVEL 100 MEQ/L (98-107); CREATININE FOR GFR 0.96 MG/DL (0.70-1.30); GLOMERULAR FILTRATION RATE > 60.0 (>60); GLUCOSE, FASTING 336 MG/DL (70-100); MAGNESIUM LEVEL 1.9 MG/DL (1.8-2.4); POTASSIUM SERUM 3.8 MEQ/L (3.5-5.1); SODIUM LEVEL 134 MEQ/L (136-145)
[2021-01-02] MEDS ORDERED: IBUPROFEN 800 MG TAB PO PRN (05:35)
[2021-01-02 05:53] LABS: OSMOLALITY SERUM 296 MOSM/KG (275-295)
[2021-01-02] MEDS ORDERED: LEVOTHYROXINE 150MCG TABLET (0.15MG) PO SCH (06:00)
[2021-01-02 06:10] VITALS: BP 120/75
[2021-01-02] MEDS: HumaLOG INSULIN (NovoLOG) PER UNIT SC SCH ×2 (07:43→12:48)
--- NOTE | 2021-01-02 07:47 | REPVR ---
PROCEDURE INFORMATION: Exam: CT Maxillofacial Without Contrast Exam date and time: 01/01/2021 10:02 PM Age: 45 years old Clinical indication: Pain; Other: Dental; Additional info: Dental carries TECHNIQUE: Imaging protocol: Computed tomography images of the face without contrast. Radiation optimization: All CT scans at this facility use at least one of these dose optimization techniques: automated exposure control; mA and/or kV adjustment per patient size (includes targeted exams where dose is matched to clinical indication); or iterative reconstruction. COMPARISON: No relevant prior studies available. FINDINGS: Orbital cavity: Orbits are normal. Globes are unremarkable. Bones/joints: There is a chronic depression of the left lamina papyracea with fat extending into the middle ethmoid air cells without radiographic evidence of entrapment. No acute fracture. Paranasal sinuses: There is thick mucoperiosteal reaction in the right maxillary sinus. There is some mucoperiosteal reaction in the left maxillary sinus. Soft tissues: There is no soft tissue collection. However, the lack of intravenous contrast limits evaluation. Dental: The mandible is partially edentulous. There are large dental caries involving the right maxillary molars, and the mandibular premolars bilaterally. Other dental caries may be present. There is lucency surrounding the roots of the right maxillary 2nd molar (24/201) which may be related to a combination of periodontal and endodontal disease. There is also lucency surrounding root the right mandibular 2nd premolar. This also may be secondary to periodontal and/or endodontal disease. IMPRESSION: 1. Bilateral dental disease as described. 2. Bilateral chronic maxillary sinusitis. 3. Chronic fracture left lamina papyracea. Electronically signed by: Filiberto Rosa On 01/02/2021 07:47:15 AM
[2021-01-02] MEDS ORDERED: AUGMENTIN 875 MG TAB PO SCH (09:00)
[2021-01-02] MEDS ORDERED: ENOXAPARIN 40MG/0.4ML SYRINGE (J1650 PER 10MG) SC SCH (09:00)
[2021-01-02] MEDS ORDERED: OMEPRAZOLE 20 MG CAP PO ONE (09:15)
[2021-01-02] MEDS ORDERED: GLUC1TES2 XX (09:18)
[2021-01-02] MEDS ORDERED: ALCOPAD25 TOP (09:18)
[2021-01-02] MEDS ORDERED: PEN1MIS21 SC (09:18)
[2021-01-02] MEDS ORDERED: INSU1MIS20 SC (09:18)
[2021-01-02] MEDS ORDERED: BLOOKIT21 XX (09:18)
[2021-01-02] MEDS ORDERED: LANC30MI XX (09:18)
[2021-01-02] MEDS ORDERED: INSUDET SC (09:21)
[2021-01-02] MEDS ORDERED: OMEP10CASR PO (09:22)
--- NOTE | 2021-01-02 09:29 | DS.PDOC ---
Discharge Summary General Date of Admission Jan 01, 2021 at 21:11 Date of Discharge 01/02/21 Discharge Summary PROCEDURES PERFORMED DURING STAY: [None]. ADMITTING/DISCHARGE DIAGNOSES: 1. Toothache 2. Diabetic ketoacidosis COMPLICATIONS/CHIEF COMPLAINT: Dental Caries, Diabetic Ketoacidosis. HISTORY OF PRESENT ILLNESS/HOSPITAL COURSE: This 45 yr old M was admitted to [facility] in February of last year for new-onset DM and then in July for DKA 2/2 non-compliance with his medications. Today he presented w c/o a tooth aches for about 2 weeks. He has several carries and reports that the pain is up to 7 or 8/10 at times. Hasn't seen a dentist. Drinks regularly regular soda and other sugary drinks. None compliant with his diabetes medications because he is under the impression that his infection has cleared. He was admitted with diabetic ketoacidosis initially started insulin drip but very quickly his anion gap closed and his sugars were better. Patient was able to tolerate diet and was started on subcutaneous insulin. Patient discharged home on insulin with instructions to follow-up with her primary care physician within 5 days of discharge as well as referral to endocrinology. He is to continue his prescribed Augmentin for his tooth infection and was instructed to follow-up with a dentist. DISCHARGE MEDICATIONS: Please see below. ALLERGIES: Please see below. PHYSICAL EXAMINATION ON DISCHARGE: On day of discharge patient tells me that he is feeling better. Toothache has improved. He is asking for omeprazole for heartburn. VITAL SIGNS: Please see below. GENERAL APPEARANCE: well nourished and developed/ NAD HEENT: EOMI / mucus membranes dry CARDIOVASCULAR: Regular heart rate no appreciable murmurs LUNGS: CTAB on RA ABDOMEN: obese nontender abdomen positive bowel sounds MUSCULOSKELETAL: NCAT / THERESA x 4 INTEGUMENT: skin dry NEUROLOGICAL: No focal deficits PSYCHIATRIC: A&O at times his speech is tangential & disorganized LABORATORY DATA: Please see below. IMAGING: See chart PROGNOSIS: Fair ACTIVITY: [As tolerated]. DIET: Carbohydrate consistent diet DISPOSITION: Home DISCHARGE INSTRUCTIONS: Please follow up with your primary care physician within 1 week from discharge. If you do not have one, please follow up with us to schedule an appointment. Please keep all of your follow up appointments. Please call central to book your appointments with hospital specialists. Please take all your medications as prescribed. Please call/come to Clinic or go to the Emergency Department if - Temp >101, intractable Nausea/Vomiting, Diarrhea, Mouth sores, Headaches, Altered mental status, Seizures, sudden onset of swelling, bleeding, shortness of breath or chest pain. ITEMS TO FOLLOWUP ON ON OUTPATIENT: Follow-up with the primary care physician within 5 days of discharge. Stop drinking sugary drinks DISCHARGE CONDITION: [Stable]. TIME SPENT ON DISCHARGE: 40 minutes. Vital Signs/I&Os Vital Signs Date Time Temp Pulse Resp B/P (MAP) Pulse Ox O2 Delivery O2 Flow Rate FiO2 01/02/21 06:10 97.8 89 17 120/75 (90) 99 Room Air I&O- Last 24 Hours up to 6 AM 01/02/21 06:00 Intake Total 2137.4 ml Output Total 900 ml Balance 1237.4 ml Laboratory Data Labs 24H Laboratory Tests 2 01/01/21 15:33: Bedside Glucose (Misc Panel) 422H 01/01/21 15:49: Immature Granulocyte % (Auto) 0.4, Neutrophils (%) (Auto) 70.1H, Lymphocytes (%) (Auto) 22.1L, Monocytes (%) (Auto) 5.8, Eosinophils (%) (Auto) 1.0, Basophils (%) (Auto) 0.6, Neutrophils # (Auto) 6.6, Lymphocytes # (Auto) 2.1, Monocytes # (Auto) 0.6, Eosinophils # (Auto) 0.1, Basophils # (Auto) 0.1, Nucleated Red Blood Cells % (auto) 0.0, Anion Gap 15, Glomerular Filtration Rate > 60.0, Osmolality 304H, Calcium Level 10.2H, Total Bilirubin 0.8, Direct Bilirubin 0.2, Aspartate Amino Transf (AST/SGOT) 6L, Alanine Aminotransferase (ALT/SGPT) 21, Alkaline Phosphatase 133H, Total Protein 8.4H, Albumin 4.6, Albumin/Globulin Ratio 1.2, Thyroid Stimulating Hormone (TSH) 0.696, Free Thyroxine 1.15, Salicylates Level 5.3, Urine Opiates Screen NEGATIVE, Urine Methadone Screen NEGATIVE, Acetaminophen Level 9.4L, Urine Barbiturates Screen NEGATIVE, Urine Phencyclidine Screen NEGATIVE, Urine Amphetamines Screen NEGATIVE, Urine Benzodiazepines Screen NEGATIVE, Urine Cocaine Metabolite Screen NEGATIVE, Urine Cannabinoids Screen NEGATIVE, Ethyl Alcohol Level < 0.003, B-Hydroxybutyrate > 46.00H 01/01/21 15:56: Urine Color STRAW, Urine Appearance CLEAR, Urine pH 5.0, Urine Specific [place] 1.036, Urine Protein NEGATIVE, Urine Glucose (Auto)(UA) 3+H, Urine Ketones (Auto) 2+H, Urine Blood NEGATIVE, Urine Nitrite NEGATIVE, Urine Bilirubin NEGATIVE, Urine Urobilinogen 0.2, Urine Leukocyte Esterase (Auto) NEGATIVE, Urine WBC (Auto) 1, Urine RBC (Auto) 0, Urine Hyaline Casts (Auto) 0, Urine Bacteria (Auto) NEGATIVE, Urine Squamous Epithelial Cells 0, Urine Mucus (Auto) SMALL, Urine Sperm (Auto) 01/01/21 17:22: Estimated Mean Plasma Glucose 301H, Hemoglobin A1c 12.1 01/01/21 19:49: Bedside Glucose (Misc Panel) 463H 01/01/21 20:02: Blood Gas Bicarbonate Standard 18.2, Venous Blood pH 7.298L, Venous Blood Partial Pressure CO2 41.5, Venous Blood Partial Pressure O2 26.1L, Venous Blood Total Carbon Dioxide 21.1L, Venous Blood HCO3 19.9L, Venous Blood Oxygen Saturation 48.8L, Venous Blood Base Excess -6.2L 01/01/21 21:03: Coronavirus (COVID-19)(PCR) NEGATIVE, Influenza Type A (RT-PCR) NEGATIVE, Influenza Type B (RT-PCR) NEGATIVE, Respiratory Syncytial Virus (PCR) NEGATIVE 01/01/21 21:35: Blood Gas Bicarbonate Standard 17.5, Venous Blood pH 7.281L, Venous Blood Partial Pressure CO2 42.3, Venous Blood Partial Pressure O2 20.9L, Venous Blood Total Carbon Dioxide 20.8L, Venous Blood HCO3 19.5L, Venous Blood Oxygen Saturation 36.2L, Venous Blood Base Excess -7.0L, Anion Gap 13, Glomerular Filtration Rate > 60.0, Estimated Mean Plasma Glucose 332H, Hemoglobin A1c 13.2, Osmolality 310H, Calcium Level 8.6#, Phosphorus Level 4.2, Magnesium Level 1.9 01/02/21 00:08: Bedside Glucose (Misc Panel) 290H 01/02/21 01:03: Blood Gas Bicarbonate Standard 19.1, Venous Blood pH 7.244L, Venous Blood Partial Pressure CO2 52.0H, Venous Blood Partial Pressure O2 42.1, Venous Blood Total Carbon Dioxide 23.6L, Venous Blood HCO3 22.0L, Venous Blood Oxygen Saturation 73.0, Venous Blood Base Excess -5.9L, Anion Gap 9, Glomerular Filtration Rate > 60.0, Osmolality 301H, Calcium Level 8.8, Phosphorus Level 3.1#, Magnesium Level 1.9 01/02/21 01:04: Bedside Glucose (Misc Panel) 220H 01/02/21 04:38: Bedside Glucose (Misc Panel) 293H 01/02/21 04:52: Nucleated Red Blood Cells % (auto) 0.0, Anion Gap 11, Glomerular Filtration Rate > 60.0, Osmolality 296H, Calcium Level 8.3L, Magnesium Level 1.9 CBC/BMP Laboratory Tests 01/01/21 15:49 01/01/21 21:35 01/02/21 01:03 01/02/21 04:52 FSBS Laboratory Tests Test 01/01/21 15:33 01/01/21 19:49 01/02/21 00:08 01/02/21 01:04 Range/Units Bedside Glucose (Misc Panel) 422 463 290 220 70-105 MG/DL Test 01/02/21 04:38 Range/Units Bedside Glucose (Misc Panel) 293 70-105 MG/DL Discharge Medications Scheduled Amoxicillin/Potassium Clav (Augmentin 875-125 Tablet) 1 Each Tablet, 1 TAB PO BID Blood Sugar Diagnostic (Advanced Glucose Test Strips) 1 Each Strip, 1 STRIP XX ASDIRECTED Insulin Detemir (Levemir) 100 Unit/1 Ml Vial, 25 UNITS SC QHS Levothyroxine Sodium (Synthroid) 150 Mcg Tablet, 150 MCG PO DAILY, (Reported) Omeprazole (Omeprazole) 10 Mg Capsule.dr, 10 MG PO DAILY Scheduled PRN Ibuprofen (Ibuprofen) 800 Mg Tablet, 800 MG PO Q6H PRN for PAIN Allergies Coded Allergies: No Known Allergies (Verified , 06/24/12) REID POE MD Jan 02, 2021 09:29
[2021-01-02 13:36] LABS: BLOOD UREA NITROGEN 16 MG/DL (7-18); CALCIUM LEVEL 7.9 MG/DL (8.5-10.1); CARBON DIOXIDE LEVEL 27 MEQ/L (21-32); CHLORIDE LEVEL 98 MEQ/L (98-107); CREATININE FOR GFR 0.86 MG/DL (0.70-1.30); GLOMERULAR FILTRATION RATE > 60.0 (>60); GLUCOSE, FASTING 366 MG/DL (70-100); POTASSIUM SERUM 4.8 MEQ/L (3.5-5.1); SODIUM LEVEL 131 MEQ/L (136-145)
[2021-01-02] MEDS ORDERED: HumaLOG INSULIN (NovoLOG) PER UNIT SC SCH ×2 (21:00)
[2021-01-03] MEDS ORDERED: LEVEMIR (INSULIN DETEMIR) 1 UNITS/0.01ML SC SCH (09:00)
== END 2021-01-02 14:20 | disposition home health service (06) | DRG 420 ==
LOC: M ED 12:22 → M ED INP 21:11 → ENRESERV 22:28 → M ICU 23:47 → M MS5PR 01-02 06:10
PROVIDERS: ADMIT Internal Medicine; ATTEND Family Medicine
DX: E11.10 Type 2 diabetes mellitus with ketoacidosis without coma (principal); E03.9 Hypothyroidism, unspecified; F29 Unspecified psychosis not due to a substance or known physiological condition; K02.9 Dental caries, unspecified; E66.9 Obesity, unspecified; R12 Heartburn; Z68.30 Body mass index [BMI] 30.0-30.9, adult; Z79.899 Other long term (current) drug therapy; Z20.822 Contact with and (suspected) exposure to COVID-19

== ENCOUNTER → 2021-01-08 | Outpatient (REF) | payer OTHER ==
[~2021-01-08] MED LIST changes: +AUGM875T28 PO; +IBUP80TA PO; +INSU1MIS20 SC; +INSUDET SC; +OMEP10CASR PO; +PEN1MIS21 SC; +SYNT75TA PO
[2021-01-08 19:25] LABS: MALB URINE SIEMENS 8.3 MG/L; MAU/CREAT RATIO 51.8 MCG/MG (0.0-30.0)
== END ==
LOC: M LAB REF 16:28
PROVIDERS: ATTEND Physician Assistant
DX: E11.65 Type 2 diabetes mellitus with hyperglycemia (principal)

== ENCOUNTER → 2021-01-08 | Outpatient (REF) | payer OTHER ==
[2021-01-08 16:57] LABS: BASO # 0.1 10^3/uL (0.0-0.2); BASO % 0.7 % (0.0-1.0); EOS # 0.1 10^3/uL (0.0-0.5); EOS % 1.7 % (0.0-3.0); HEMOGLOBIN 14.8 g/dl (13.5-17.5); LYMPH # 1.7 10^3/uL (1.5-5.0); MEAN CORPUSCULAR HEMOGLOBIN 28.8 pg (27.0-33.0); MEAN CORPUSCULAR HGB CONC 33.6 g/dl (32.0-36.5); MEAN CORPUSCULAR VOLUME 85.6 fl (80.0-96.0); MONO # 0.6 10^3/uL (0.0-0.8); MONO % 7.9 % (2.0-8.0); NEUTROPHILS # 4.5 10^3/uL (1.5-8.5); NEUTROPHILS % 64.8 % (36.0-66.0); PLATELET COUNT, AUTOMATED 307 10^3/uL (150-450); RED BLOOD COUNT 5.14 10^6/uL (4.30-6.10)
[2021-01-08 17:29] LABS: ALBUMIN 3.9 GM/DL (3.2-5.2); ALT/SGPT 19 U/L (12-78); BILIRUBIN,TOTAL 0.6 MG/DL (0.2-1.0); BLOOD UREA NITROGEN 8 MG/DL (7-18); CALCIUM LEVEL 8.5 MG/DL (8.5-10.1); CARBON DIOXIDE LEVEL 24 MEQ/L (21-32); CHLORIDE LEVEL 97 MEQ/L (98-107); CHOLESTEROL LEVEL 324 MG/DL (<200); CHOLESTEROL RISK RATIO 9.257 (<5); GLOMERULAR FILTRATION RATE > 60.0 (>60); GLUCOSE, FASTING 640 MG/DL (70-100); HDL CHOLESTEROL 35 MG/DL (>40); NON-HDL-C 289 MG/DL; POTASSIUM SERUM 4.4 MEQ/L (3.5-5.1); SODIUM LEVEL 130 MEQ/L (136-145); THYROID STIMULATING HORMONE 0.012 uIU/ML (0.358-3.740); TRIGLYCERIDES LEVEL 411 MG/DL (<150)
[2021-01-08 18:21] LABS: HEMOGLOBIN A1c 13.6 %
== END ==
LOC: M LAB REF 16:23
PROVIDERS: ATTEND Physician Assistant
DX: E11.65 Type 2 diabetes mellitus with hyperglycemia (principal); E03.9 Hypothyroidism, unspecified

== ENCOUNTER 2021-01-12 11:23 | Inpatient (IN) | payer OTHER ==
[2021-01-12] VITALS (8 sets, daily range): BP systolic 124–137; BP diastolic 80–86
[~2021-01-12] VITALS: Ht 182.9 cm; Wt 100.9 kg
[2021-01-12] MEDS ORDERED: ONDANSETRON 4MG/2ML VIAL IV ONE (11:50)
[2021-01-12 12:12] LABS: BASO # 0.1 10^3/uL (0.0-0.2); BASO % 0.7 % (0.0-1.0); EOS % 0.1 % (0.0-3.0); HEMATOCRIT 52.4 % (42.0-52.0); HEMOGLOBIN 16.8 g/dl (13.5-17.5); LYMPH # 1.5 10^3/uL (1.5-5.0); LYMPH % 7.6 % (24.0-44.0); MEAN CORPUSCULAR HEMOGLOBIN 28.6 pg (27.0-33.0); MEAN CORPUSCULAR HGB CONC 32.1 g/dl (32.0-36.5); MEAN CORPUSCULAR VOLUME 89.3 fl (80.0-96.0); MONO # 1.1 10^3/uL (0.0-0.8); MONO % 5.5 % (2.0-8.0); NEUTROPHILS # 16.7 10^3/uL (1.5-8.5); NEUTROPHILS % 82.7 % (36.0-66.0); PLATELET COUNT, AUTOMATED 439 10^3/uL (150-450); RED BLOOD COUNT 5.87 10^6/uL (4.30-6.10); WHITE BLOOD COUNT 20.2 10^3/uL (4.0-10.0)
[2021-01-12] MEDS ORDERED: LORazepam 2 MG/ML VIAL IV STA (12:13)
[2021-01-12 12:45] LABS: ALBUMIN 4.7 GM/DL (3.2-5.2); ALT/SGPT 21 U/L (12-78); AMYLASE 20 U/L (25-115); BILIRUBIN,DIRECT 0.1 MG/DL (0.0-0.2); BILIRUBIN,TOTAL 0.5 MG/DL (0.2-1.0); LIPASE 68 U/L (73-393); TOTAL PROTEIN 8.9 GM/DL (6.4-8.2)
[2021-01-12 12:47] LABS: ABG BASE EXCESS -29.7 (-2.0-2.0); ABG PARTIAL PRESSURE O2 220.5 mmHg (75.0-100.0); ABG STANDARD HCO3 6.2 MEQ/L (22.0-26.0); ABG TOTAL CO2 2.3 MEQ/L (22.0-29.0)
[2021-01-12 12:49] LABS: ABG PARTIAL PRESSURE CO2 10.3 mmHg (35.0-45.0); ABG pH (ARTERIAL) 6.897 UNITS (7.350-7.450)
[2021-01-12] MEDS ORDERED: HumuLIN R (REGULAR) INSULIN (NovoLIN R) **100U/ML** PER UNIT IV ONE (12:50)
[2021-01-12] MEDS ORDERED: NS 1,000 ML IV ONE (12:50)
[2021-01-12] MEDS: INSULIN REGULAR IN 0.9 % NACL 100 UNIT in IV 1 EA IV SCH ×6 (13:01→20:57)
--- NOTE | 2021-01-12 13:02 | REP ---
INDICATION: SOB. COMPARISON: Portable chest dated 08/12/2020. TECHNIQUE: Portable AP chest with the patient upright, two views. FINDINGS: The lung gallegos are clear. The cardiac size is normal. The hermelinda, mediastinum, and skeletal structures are unremarkable. The patient is rotated on both views. IMPRESSION: Essentially negative portable chest. There is no interval change. <Electronically signed by Elvis Kennedy > 01/12/21 1931
[2021-01-12 13:18] LABS: OSMOLALITY SERUM 333 MOSM/KG (275-295)
[2021-01-12 13:21] LABS: INR 1.07; PROTHROMBIN TIME 14.1 SECONDS (12.5-14.3)
[2021-01-12 13:22] LABS: PARTIAL THROMBOPLASTIN TIME 28.1 SECONDS (24.2-38.5)
[2021-01-12 13:22] LABS: ACETONE/KETONE > 46.00 MG/DL (<2.81); BLOOD UREA NITROGEN 13 MG/DL (7-18); CALCIUM LEVEL 9.7 MG/DL (8.5-10.1); CARBON DIOXIDE LEVEL 5 MEQ/L (21-32); CHLORIDE LEVEL 107 MEQ/L (98-107); CK-MB VALUE MASS < 1.0 NG/ML (<3.6); CPK CREATINE PHOSPHOKINASE 53 U/L (39-308); CREATININE FOR GFR 1.35 MG/DL (0.70-1.30); GLOMERULAR FILTRATION RATE > 60.0 (>60); GLUCOSE, FASTING 380 MG/DL (70-100); MAGNESIUM LEVEL 2.4 MG/DL (1.8-2.4); MB/CK RELATIVE INDEX 1.89 (< OR =4); PHOSPHORUS LEVEL 4.7 MG/DL (2.5-4.9); POTASSIUM SERUM 4.4 MEQ/L (3.5-5.1); SODIUM LEVEL 139 MEQ/L (136-145); TROPONIN I < 0.02 NG/ML (< 0.10)
--- NOTE | 2021-01-12 13:24 | ECGEPIP ---
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
[2021-01-12] MEDS ORDERED: BASA100I SC (13:25)
[2021-01-12] MEDS ORDERED: ATOR1TAB21 PO (13:25)
[2021-01-12] MEDS ORDERED: ISOVUE-370 76% 100ML VIAL As Ordered ONE (13:29)
[2021-01-12] MEDS ORDERED: NS 1,000 ML IV SCH (13:51)
[2021-01-12 14:11] LABS: RSV AMPLIFICATION NEGATIVE (NEGATIVE)
[2021-01-12] MEDS ORDERED: AMOX875T2 PO (14:46)
[2021-01-12] MEDS ORDERED: OMEP10CA78 PO (14:46)
[2021-01-12] MEDS ORDERED: IBUP80TA PO (14:46)
[2021-01-12] MEDS ORDERED: COMMENTS (14:50)
--- NOTE | 2021-01-12 15:03 | REP ---
INDICATION: SOB tachycardia. COMPARISON: 08/12/2020. TECHNIQUE: Chest CT with IV contrast, CT angiography. FINDINGS: The study is performed with the patient's arms over the chest. This results in significant beam hardening artifact that significantly degrades the CT angiography images. There are no emboli in the pulmonary trunk or central pulmonary arteries. The lobe and segment branches are poorly demonstrated. There are no infiltrates or pleural effusions. There are no pulmonary masses or nodules. The thoracic aorta is unremarkable. Cardiac size normal. There is no pericardial effusion. The visualized upper abdominal contents are grossly unremarkable but are significantly degraded by beam hardening artifact. IMPRESSION: Significant image degradation from beam hardening artifact as discussed. No central pulmonary emboli are identified. The lobe, segment and peripheral pulmonary arteries are suboptimally demonstrated. There are no infiltrates or pleural effusions. There are no nodules or masses. Cardiac size is normal. No pericardial effusion. <Electronically signed by Elvis Kennedy > 01/12/21 [id number]
[2021-01-12 15:06] LABS: VENOUS BASE EXCESS -32.4 (-2.0-2.0); VENOUS HCO3 3.5 MEQ/L (23.0-27.0); VENOUS PARTIAL PRESSURE CO2 26.6 mmHg (38.0-50.0); VENOUS PARTIAL PRESSURE O2 62.1 mmHg (30.0-50.0); VENOUS STANDARD HCO3 4.7 MEQ/L; VENOUS TOTAL CO2 4.3 MEQ/L (24.0-28.0)
[2021-01-12 15:13] LABS: VENOUS PH 6.734 UNITS (7.330-7.430)
[2021-01-12] MEDS ORDERED: KCL 10MEQ/100ML SWI (KRUN) 10 MEQ, SODIUM BICARBONATE 50 MEQ in IV 1 EA IV ONE (16:00)
--- NOTE | 2021-01-12 16:04 | HPEPDOC ---
[facility] Medical History & Physical Date of Admission Jan 12, 2021 Date of Service: Jan 12, 2021 Attending Physician: JOVITA ROBERTSON MD History and Physical CHIEF COMPLAINT: Respiratory Distress HISTORY OF PRESENT ILLNESS: Pt is a 45 year old male with PMH of DKA x3, IDDMT2, psychiatric hx, hypothyroidism who presented to the ED via EMS due to hyperventilation. During examination, pt was lethargic and did not respond to questions. Most of HPI obtained from ED records as well as past medical records. ED report states that pt has been sick for a year and sx have been gradually worsening. Pt has not been eating or drinking for the past two days. Pt was asking for water repeatedly in the ED. According to pt records, he as last admitted here due to DKA as well. It appears that pt is non-compliant to his medications as he believed he no longer had diabetes and has been drinking mostly regular soda and iced tea. Pt most recent A1c done on 01/08/21 was 13.6. Labs done in the ED show that pt is acidotic at 6.897, anion gap of 27, beta- hydroxybutyrate >46, and POC glucose of 385 initially. Pt found to be in DKA and was tested positive for COVID-19. D-dimer elevated at 773. CXR was negative and CTA showed no acute as well. PAST MEDICAL HISTORY: 1. DKA x3 since February 2020. 2. IDDMT2. 3. Hypothyroidism. 4. Psychiatric hx - possibly schizophrenia. PAST SURGICAL HISTORY: 1. Tonsillectomy. SOCIAL HISTORY: Pt is lethargic and does not respond to questions at time of admission. Social hx obtained from previous admission on Jan 01, 2021. Lives alone and according to previous records has a son. He is a and was in the [employer]. Denies any current alcohol or tobacco use, had used marijuana use in his 20s, and snorted cocaine 5-6 times. FAMILY HISTORY: Hx of multiple MIs with associated unspecified heart disease. ALLERGIES: Please see below. REVIEW OF SYSTEMS: Unable to obtain. HOME MEDICATIONS: Please see below. PHYSICAL EXAMINATION: VITAL SIGNS: Temperature 98.7, pulse 133, respiratory rate 40, blood pressure 187/92, pulse oximetry 99% on room air. GENERAL APPEARANCE: Pt is laying in bed and is unable to answer any questions. L ethargic. HEENT: NC/AT. Conjunctiva anicteric. CARDIOVASCULAR: Tachycardic but regular rhythm. No murmurs, rubs, or gallops appreciated. LUNGS: Tachypneic. Clear to auscultation. No wheezes, rales, or rhonchi appreciated. ABDOMEN: Soft and nondistended. Does not recoil to palpation but does not r espond when asked if tender. Normoactive bowel sounds to all four quadrants. EXTREMITIES: No pitting edema to BLE. 2+/4 DP pulses. NEUROLOGICAL: Pt is unable to verbalize his name or date of . He is laying in bed, tachypneic and unable to respond to questions. 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 LABORATORY DATA: See below. IMAGING: CXR 01/12/21 Essentially negative portable chest. There is no interval change. CTA Chest 01/12/21 Significant image degradation from beam hardening artifact as discussed. No central pulmonary emboli are identified. The lobe, segment and peripheral pulmonary arteries are suboptimally demonstrated. There are no infiltrates or pleural effusions. There are no nodules or masses. Cardiac size is normal. No pericardial effusion. MICROBIOLOGY: Please see below. ASSESSMENT: Pt is a 45 year old male with PMH of DKA x3, IDDMT2, psychiatric hx, hypo thyroidism who presented to the ED via EMS due to hyperventilation. Labs done in the ED show that pt is acidotic at 6.897, anion gap of 27, beta-hydroxybutyrate >46, and POC glucose of 385 initially. Pt found to be in DKA and was tested positive for COVID-19. D-dimer elevated at 773. CXR was negative and CTA showed no acute as well. Pt admitted to medicine for further management of DKA and COVID-19 infection. PLAN: #DKA - According to pt PMH, it appears that he is non-compliant with his medications (Levemir and insulin glargine) at home. - He has had 3 admissions for DKA since February 2020. - ABG pH 6.897, pCO2 10.3, pO2 220.5. K WNL at 4.4. Anion gap 27. Beta hydroxy butyrate >46. Repeat VBG shows pH at 6.734 (corrected would be 6.769). - Pt is tachypnic at 40 and tachycardic at 133. He is lethargic and unable to respond to questions. - Pt tested positive for COVID-19 and that may be the underlying cause of DKA onset. However, pt does currently have leukocytosis so will continue with further work up. See below. - Pt placed on NPO status. - Receiving IV NS. - Started on Insulin drip. Will admit to ICU. - Pt also started on KCl/Sodium Bicarb due to pH being <6.9. - Will continue with Q1H FSBS. - Will continue to monitor labs and vitals. # SIRS criteria with possible infection - meets 3/4 with leukocytosis, tachycardia, and tachypnea - WBC elevated at 20.2. HR 133. RR 30-40. Pt afebrile. - Pt currently COVID-19 positive, which can be the cause of leukocytosis although it is not expected to be elevated at this level. However, given that pt has decreased lymphocytes, it may be viral in etiology. - CXR and CTA chest was negative for any signs of PNA or acute process. - Blood cultures, UA, and MRSA PCR screen ordered to r/o other infectious causes of leukocytosis. - Pt has been empirically started on Meropenem (day #1) for coverage due to leukocytosis and DKA. #COVID-19 - Pt was tested positive for COVID. Unsure of when pt was exposed or if he is symptomatic. - D-dimer was elevated and PE was ruled out with CTA chest. D-dimer, an inflammatory marker, may be elevated due to COVID-19 infection. - Will hold off on Remdesivir and steroids at this time. #ANA - BUN 18 and creatinine 1.37. Pt creatinine is WNL at baseline. - Likely prerenal 2/2 dehydration. - Will continue with fluid resuscitation. - If kidney functions not improved after fluid resuscitation, will continue to work up. #IDDMT2 - It appears that pt is non-compliant with his medications. - He takes Levemir and insulin glargine at home. - Most recent A1c was 13.6. - Pt currently in DKA so will continue with insulin drip. #Hypothyroidism - Takes levothyroxine at home. - Will hold home meds while NPO. - May consider IV levothyroxine if pt does not improve and continues to be NPO tomorrow. DVT Prophylaxis: Heparin 5,000 units SC. Disposition: Pending clinical improvement. Vital Signs Vital Signs Date Time Temp Pulse Resp B/P (MAP) Pulse Ox O2 Delivery O2 Flow Rate FiO2 01/12/21 13:06 38 01/12/21 11:29 98.7 133 187/92 99 Room Air Laboratory Data Labs 24H Laboratory Tests 2 01/12/21 11:55: Prothrombin Time 14.1H, Prothromb Time International Ratio 1.07, Activated Partial Thromboplast Time 28.1, D-Dimer, Quantitative 773.00H 01/12/21 11:58: Immature Granulocyte % (Auto) 3.4H, Neutrophils (%) (Auto) 82.7H, Lymphocytes (%) (Auto) 7.6L, Monocytes (%) (Auto) 5.5, Eosinophils (%) (Auto) 0.1, Basophils (%) (Auto) 0.7, Neutrophils # (Auto) 16.7H, Lymphocytes # (Auto) 1.5, Monocytes # (Auto) 1.1H, Eosinophils # (Auto) 0.0, Basophils # (Auto) 0.1, Nucleated Red B lood Cells % (auto) 0.0, Anion Gap 27H, Glomerular Filtration Rate > 60.0, Osmolality 333H, Calcium Level 9.7, Phosphorus Level 4.7, Magnesium Level 2.4, Total Bilirubin 0.5, Direct Bilirubin 0.1, Aspartate Amino Transf (AST/SGOT) 10, Alanine Aminotransferase (ALT/SGPT) 21, Alkaline Phosphatase 128H, Total Creatine Kinase 53, Creatine Kinase MB < 1.0, Creatine Kinase MB Relative Index 1.89, Troponin I < 0.02, Total Protein 8.9H, Albumin 4.7, Albumin/Globulin Ratio 1.1, Amylase Level 20L, Lipase 68L, B-Hydroxybutyrate > 46.00H 01/12/21 12:09: POC Glucose (Misc Panel) 385H, POC Sodium (Misc Panel) 142, POC Potassium (Misc Panel) 3.8, POC Chloride (Misc Panel) 114H, POC Total CO2 (Misc Panel) 9.0L, POC Blood Urea Nitrogen (Misc Panel 17, POC Ionized Calcium (Misc Panel) 5.1, POC Creatinine (Misc Panel) 0.8, POC Hematocrit (Misc Panel) 53.0H 01/12/21 12:31: Blood Gas Bicarbonate Standard 6.2L, Arterial Blood pH 6.897*L, Arterial Blood Partial Pressure CO2 10.3*L, Arterial Blood Partial Pressure O2 220.5H, Arterial Blood Total CO2 2.3L, Arterial Blood HCO3 2.0L, Arterial Blood Base Excess - 29.7L, Arterial Blood Oxygen Saturation 99.0 01/12/21 13:01: Bedside Glucose (Misc Panel) 436H 01/12/21 13:02: Coronavirus (COVID-19)(PCR) POSITIVEA, Influenza Type A (RT-PCR) NEGATIVE, Influenza Type B (RT-PCR) NEGATIVE, Respiratory Syncytial Virus (PCR) NEGATIVE 01/12/21 13:50: Bedside Glucose (Misc Panel) 454H 01/12/21 14:56: CBC/BMP Laboratory Tests 01/12/21 11:58 Microbiology Microbiology 01/12/21 Blood Culture, Received Pending Home Medications Scheduled Amoxicillin/Potassium Clav (Amox-Clav 875-125 mg Tablet) 1 Each Tablet, 1 TAB PO BID Atorvastatin Calcium (Atorvastatin Calcium) 20 Mg Tablet, 20 MG PO QHS Insulin Glargine,Hum.rec.anlog (Basaglar Kwikpen U-100) 100 Unit/1 Ml Insuln.pen, 25 UNITS SC QHS Levothyroxine Sodium (Synthroid) 150 Mcg Tablet, 150 MCG PO DAILY Omeprazole (Omeprazole) 10 Mg Capsule.dr, 10 MG PO DAILY Scheduled PRN Ibuprofen (Ibuprofen) 800 Mg Tablet, 800 MG PO Q6H PRN for PAIN Miscellaneous Medications [Comments] MED LIST MADE WITH EXTERNAL MED HISTORY Allergies Coded Allergies: No Known Allergies (Verified , 01/12/21) A-FIB/CHADSVASC A-FIB History Current/History of A-Fib/PAF?: No GME ATTESTATION GME ATTESTATION My faculty preceptor for this patient encounter was physically present during the encounter and was fully available. All aspects of the patient interview, examination, medical decision making process, and medical care plan development were reviewed and approved by the faculty preceptor. The faculty preceptor is aware and concurs with the plan as stated in the body of this note and will attest to such by his/her cosignature. ATTENDING NOTE Attending Attestation: Patient independently seen and examined. I have discussed in detail with the resident / student the findings and plan of treatment as documented by the resi dent / student. I agree with their findings and treatment plan and have edited their documentation. I will continue to follow the patient during this hospital stay. Patient still quite lethargic initially, but now agitated, restless. 1:1 sitter implemented. Discussed acid base status with pulm/nephro, will monitor for improvement with insulin gtt and IV fluids. DKA only marginally improving, increasing rate of insulin drip to 15 units/hour. Halley FUENTES OMS-3 Jan 12, 2021 16:04 MELANIE ODONNELL D.O. Jan 12, 2021 16:20 JOVITA ROBERTSON MD Jan 12, 2021 17:12
[2021-01-12 16:21] LABS: ABG BASE EXCESS -28.9 (-2.0-2.0); ABG HCO3 2.3 MEQ/L (22.0-26.0); ABG O2 SATURATION 98.2 % (95.0-99.0); ABG PARTIAL PRESSURE O2 128.5 mmHg (75.0-100.0); ABG STANDARD HCO3 6.1 MEQ/L (22.0-26.0); ABG TOTAL CO2 2.7 MEQ/L (22.0-29.0)
[2021-01-12 16:24] LABS: ABG PARTIAL PRESSURE CO2 11.8 mmHg (35.0-45.0); ABG pH (ARTERIAL) 6.917 UNITS (7.350-7.450)
[2021-01-12 16:28] LABS: CALCIUM LEVEL 8.8 MG/DL (8.5-10.1); CREATININE FOR GFR 1.37 MG/DL (0.70-1.30); GLOMERULAR FILTRATION RATE 59.6 (>60); PHOSPHORUS LEVEL 6.2 MG/DL (2.5-4.9); POTASSIUM SERUM 3.3 MEQ/L (3.5-5.1)
[2021-01-12 16:40] LABS: VENOUS BASE EXCESS -31.7 (-2.0-2.0); VENOUS HCO3 3.9 MEQ/L (23.0-27.0); VENOUS O2 SATURATION 80.3 % (60.0-80.0); VENOUS PARTIAL PRESSURE CO2 28.3 mmHg (38.0-50.0); VENOUS PARTIAL PRESSURE O2 52.1 mmHg (30.0-50.0); VENOUS PH 6.754 UNITS (7.330-7.430); VENOUS STANDARD HCO3 5.3 MEQ/L; VENOUS TOTAL CO2 4.7 MEQ/L (24.0-28.0)
[2021-01-12 17:02] LABS: CALCIUM LEVEL 9.1 MG/DL (8.5-10.1); CREATININE FOR GFR 1.54 MG/DL (0.70-1.30); PHOSPHORUS LEVEL 5.2 MG/DL (2.5-4.9); POTASSIUM SERUM 3.5 MEQ/L (3.5-5.1)
[2021-01-12] MEDS: KCL 20MEQ in NS 1000ML 1,000 ML IV SCH ×2 (17:13→21:27)
[2021-01-12] MEDS: MEROPENEM INJ 1 GM in IV 1 EA IV SCH (17:13)
[2021-01-12 19:05] LABS: CALCIUM LEVEL 8.8 MG/DL (8.5-10.1); CREATININE FOR GFR 1.69 MG/DL (0.70-1.30); GLOMERULAR FILTRATION RATE 46.7 (>60); POTASSIUM SERUM 3.9 MEQ/L (3.5-5.1)
[2021-01-12 20:27] LABS: ABG BASE EXCESS -21.5 (-2.0-2.0); ABG O2 SATURATION 98.9 % (95.0-99.0); ABG PARTIAL PRESSURE O2 134.7 mmHg (75.0-100.0); ABG STANDARD HCO3 9.5 MEQ/L (22.0-26.0); ABG TOTAL CO2 4.3 MEQ/L (22.0-29.0)
[2021-01-12 20:29] LABS: ABG pH (ARTERIAL) 7.179 UNITS (7.350-7.450)
[2021-01-12] MEDS ORDERED: INFLUENZA QUADRIVALENT PF VACCINE 0.5ML SYRINGE IM PRN (20:35)
[2021-01-12] MEDS: INSULIN IV RATE CHANGE DOCUMENTATION ML/HR XX SCH ×3 (20:58→23:58)
[2021-01-12 21:05] LABS: HEMOGLOBIN A1c 12.8 %
[2021-01-12] MEDS: HEPARIN SOD (PORCINE) 5000UNITS/ML 1ML VIAL/SYRINGE SC SCH (21:28)
[2021-01-12] MEDS: KCL 20MEQ IN D5/0.45NS 1000ML 1,000 ML IV SCH (22:24)
[2021-01-12 23:12] LABS: VENOUS BASE EXCESS -18.3 (-2.0-2.0); VENOUS HCO3 8.9 MEQ/L (23.0-27.0); VENOUS O2 SATURATION 76.1 % (60.0-80.0); VENOUS PARTIAL PRESSURE CO2 26.2 mmHg (38.0-50.0); VENOUS PARTIAL PRESSURE O2 33.7 mmHg (30.0-50.0); VENOUS PH 7.148 UNITS (7.330-7.430); VENOUS TOTAL CO2 9.7 MEQ/L (24.0-28.0)
[2021-01-12 23:43] LABS: CALCIUM LEVEL 9.1 MG/DL (8.5-10.1); CREATININE FOR GFR 1.82 MG/DL (0.70-1.30); GLOMERULAR FILTRATION RATE 42.9 (>60); PHOSPHORUS LEVEL 0.5 MG/DL (2.5-4.9); POTASSIUM SERUM 4.2 MEQ/L (3.5-5.1)
[2021-01-13] VITALS (12 sets, daily range): BP systolic 110–138; BP diastolic 63–85
[2021-01-13] MEDS: INSULIN IV RATE CHANGE DOCUMENTATION ML/HR XX SCH ×6 (00:56→10:01)
[2021-01-13] MEDS: OMEPRAZOLE 20 MG CAP PO SCH ×2 (02:22→08:32)
[2021-01-13] MEDS: MEROPENEM INJ 1 GM in IV 1 EA IV SCH ×2 (02:22→09:58)
[2021-01-13 02:33] LABS: VENOUS BASE EXCESS -14.8 (-2.0-2.0); VENOUS HCO3 11.4 MEQ/L (23.0-27.0); VENOUS O2 SATURATION 89.9 % (60.0-80.0); VENOUS PARTIAL PRESSURE CO2 28.6 mmHg (38.0-50.0); VENOUS PARTIAL PRESSURE O2 49.9 mmHg (30.0-50.0); VENOUS PH 7.218 UNITS (7.330-7.430); VENOUS STANDARD HCO3 13.3 MEQ/L; VENOUS TOTAL CO2 12.3 MEQ/L (24.0-28.0)
[2021-01-13 02:36] LABS: BASO % 0.1 % (0.0-1.0); HEMATOCRIT 43.3 % (42.0-52.0); HEMOGLOBIN 14.6 g/dl (13.5-17.5); LYMPH # 0.7 10^3/uL (1.5-5.0); LYMPH % 3.3 % (24.0-44.0); MEAN CORPUSCULAR HEMOGLOBIN 28.3 pg (27.0-33.0); MEAN CORPUSCULAR HGB CONC 33.7 g/dl (32.0-36.5); MEAN CORPUSCULAR VOLUME 83.9 fl (80.0-96.0); MONO # 2.3 10^3/uL (0.0-0.8); NEUTROPHILS # 17.5 10^3/uL (1.5-8.5); NEUTROPHILS % 84.5 % (36.0-66.0); PLATELET COUNT, AUTOMATED 352 10^3/uL (150-450); RED BLOOD COUNT 5.16 10^6/uL (4.30-6.10)
[2021-01-13 03:03] LABS: WHITE BLOOD COUNT 20.7 10^3/uL (4.0-10.0)
[2021-01-13 03:08] LABS: CALCIUM LEVEL 9.1 MG/DL (8.5-10.1); CREATININE FOR GFR 1.87 MG/DL (0.70-1.30); GLOMERULAR FILTRATION RATE 41.6 (>60); MAGNESIUM LEVEL 1.9 MG/DL (1.8-2.4); PHOSPHORUS LEVEL 0.6 MG/DL (2.5-4.9); POTASSIUM SERUM 3.8 MEQ/L (3.5-5.1)
[2021-01-13] MEDS ORDERED: POTASSIUM PHOSPHATE INJ 20 MMOL in D5W 250 ML IV ONE (04:00)
[2021-01-13] MEDS ORDERED: MAG SULF 1GM/100ML (MAG RUN) 1 GM in IV 1 EA IV ONE (04:10)
[2021-01-13] MEDS: HEPARIN SOD (PORCINE) 5000UNITS/ML 1ML VIAL/SYRINGE SC SCH ×3 (04:59→21:17)
[2021-01-13] MEDS: KCL 20MEQ IN D5/0.45NS 1000ML 1,000 ML IV SCH (04:59)
[2021-01-13] MEDS ORDERED: LEVOTHYROXINE 100MCG TABLET (0.1MG) PO SCH (06:00)
[2021-01-13] MEDS ORDERED: LEVOTHYROXINE 150MCG TABLET (0.15MG) PO SCH (06:00)
[2021-01-13] MEDS ORDERED: SODIUM CHLORIDE 0.45% 1000 ML IV ONE (06:05)
[2021-01-13] MEDS ORDERED: NS 0.45% 1,000 ML IV SCH (06:35)
[2021-01-13 06:38] LABS: VENOUS HCO3 13.1 MEQ/L (23.0-27.0); VENOUS O2 SATURATION 83.5 % (60.0-80.0); VENOUS PARTIAL PRESSURE CO2 31.6 mmHg (38.0-50.0); VENOUS PARTIAL PRESSURE O2 41.3 mmHg (30.0-50.0); VENOUS PH 7.237 UNITS (7.330-7.430); VENOUS STANDARD HCO3 14.3 MEQ/L; VENOUS TOTAL CO2 14.1 MEQ/L (24.0-28.0)
[2021-01-13 07:14] LABS: CALCIUM LEVEL 8.6 MG/DL (8.5-10.1); CREATININE FOR GFR 1.61 MG/DL (0.70-1.30); GLOMERULAR FILTRATION RATE 49.4 (>60); PHOSPHORUS LEVEL 1.4 MG/DL (2.5-4.9); POTASSIUM SERUM 4.4 MEQ/L (3.5-5.1)
[2021-01-13] MEDS: INSULIN REGULAR IN 0.9 % NACL 100 UNIT in IV 1 EA IV SCH ×2 (07:14)
[2021-01-13 07:30] LABS: MAGNESIUM LEVEL 2.2 MG/DL (1.8-2.4)
[2021-01-13] MEDS ORDERED: GLUCAGON INJ 1MG VIAL SC PRN (07:50)
[2021-01-13] MEDS ORDERED: DEXTROSE 50% 50 ML SYRINGE IV PRN (07:50)
[2021-01-13] MEDS ORDERED: GLUCOSE 4GM CHEW TABLET PO PRN (07:50)
[2021-01-13] MEDS ORDERED: LEVEMIR (INSULIN DETEMIR) 1 UNITS/0.01ML SC ONE (08:30)
--- NOTE | 2021-01-13 10:59 | IPNPDOC ---
Text Note Date of Service The patient was seen on 01/13/21. NOTE SUBJECTIVE: Patient was seen and examined this morning at bedside. He is awake and alert this morning. He states he is still feeling somewhat confused. He recalls s tarting to feel sick 6-8 hours before coming to the hospital yesterday. He describes vomiting eight times prior to presentation to the hospital. He also states he was hyperventilating at home. He denies current abdominal pain but states he does feel nauseous. He also states he "has been waived of having diabetes by prior doctors". I explained to the patient that he does in fact still have diabetes and he needs to take his medication at home. The patient continues to disagree OBJECTIVE: VITAL SIGNS: See below GENERAL: Alert, comfortable, in no acute distress HEENT: Normocephalic, atraumatic, sclera anicteric, moist mucous membranes CARDIOVASCULAR: Regular rate and rhythm, normal S1 and S2. No murmurs, rubs, or gallops RESPIRATORY: Clear to auscultation bilaterally with equal air entry bilaterally. No wheezing, rhonchi, or rales. ABDOMEN: Mild epigastric tenderness to deep palpation. Soft, nondistended, bowel sounds present, no masses or hepatosplenomegaly appreciated EXTREMITIES: No cyanosis or edema. Pulses 2+/4 in bilateral upper and lower extremities NEUROLOGIC: Alert and oriented x3 to person, place and time. No focal deficits appreciated ASSESSMENT/PLAN: 45 year old male with PMH of IDDMT2 with hx DKA x3, psychiatric hx, hyp othyroidism who presented to the ED via EMS due to hyperventilation found to have anion gap metabolic acidosis with elevated ketones suggestive of DKA likely secondary to medical noncompliance vs infection, admitted for further treatment. Pt was found to be COVID-19 positive on admission. #DKA - Suspected cause is non-compliance with home meds, which he admits to and states he does not need medicine as he does not believe he has diabetes. - Last ABG shows improvement of metabolic acidosis - Anion gap closed this morning, patient will be bridged from the insulin drip to SC insulin - will discontinue IV fluids when tolerating oral diet #IDDMT2 - noncompliant with medications. HgA1c 12.2 - restart levemir and SSI ACHS this morning with consistent carb diet # SIRS criteria with possible infection - 3/4 on admission with WBC elevated at 20.2, HR 133, RR 30-40. Pt afebrile. - HR and RR improved with treatment of DKA, WBC remains elevated which may be reactive. - CXR and CTA chest was negative for any signs of PNA or acute process. UA negative for infection. Blood cultures pending. - Pt has been empirically started on Meropenem, now switched to ceftriaxone (day #2) for coverage due to leukocytosis and DKA. #COVID-19 - Pt was tested positive for COVID. Does not seem to be symptomatic at this point. Will hold off on Remdesivir and steroids at this time. - D-dimer was elevated and PE was ruled out with CTA chest. D-dimer, an inflammatory marker, may be elevated due to COVID-19 infection. #ANA - Likely prerenal 2/2 dehydration with DKA - s/p fluid resuscitation, expect improvement over next 24hr - consider further work up if not improved #Hypothyroidism - TSH low on recent lab work, recheck remains lows - will hold home levothyroxine DVT Prophylaxis: sc heparin DISPOSITION: pending clinical improvement Attending Attestation: Patient independently seen and examined. I have discussed in detail with the resident / student the findings and plan of treatment as documented by the resident / student. I agree with their findings and treatment plan and have edited their documentation. I will continue to follow the patient during this hospital stay. VS,Fishbone, I+O VS, Fishbone, I+O Laboratory Tests 01/12/21 11:58 01/12/21 14:56 01/12/21 16:26 01/12/21 18:33 01/12/21 23:05 01/13/21 02:25 01/13/21 06:28 Vital Signs Date Time Temp Pulse Resp B/P (MAP) Pulse Ox O2 Delivery O2 Flow Rate FiO2 01/13/21 08:00 99.4 97 19 120/63 (82) 97 Room Air I&O- Last 24 Hours up to 6 AM 01/13/21 06:00 Intake Total 5555 ml Output Total 1075 ml Balance 4480 ml MELANIE ODONNELL D.O. Jan 13, 2021 10:59 JOVITA ROBERTSON MD Jan 14, 2021 11:58
[2021-01-13] MEDS ORDERED: SODIUM PHOSPHATE INJ 30 MMOL in D5W 500 ML IV ONE (11:00)
[2021-01-13 11:43] LABS: BLOOD UREA NITROGEN 20 MG/DL (7-18); CALCIUM LEVEL 8.5 MG/DL (8.5-10.1); CARBON DIOXIDE LEVEL 14 MEQ/L (21-32); CHLORIDE LEVEL 111 MEQ/L (98-107); CREATININE FOR GFR 1.39 MG/DL (0.70-1.30); FREE T4 1.36 NG/DL (0.76-1.46); GLOMERULAR FILTRATION RATE 58.6 (>60); GLUCOSE, FASTING 244 MG/DL (70-100); PHOSPHORUS LEVEL 1.9 MG/DL (2.5-4.9); POTASSIUM SERUM 4.1 MEQ/L (3.5-5.1); SODIUM LEVEL 138 MEQ/L (136-145); THYROID STIMULATING HORMONE < 0.005 uIU/ML (0.358-3.740)
[2021-01-13] MEDS ORDERED: HumaLOG INSULIN (NovoLOG) PER UNIT SC SCH ×2 (12:00→21:00)
[2021-01-13 15:17] LABS: BLOOD UREA NITROGEN 20 MG/DL (7-18); CALCIUM LEVEL 8.5 MG/DL (8.5-10.1); CARBON DIOXIDE LEVEL 11 MEQ/L (21-32); CHLORIDE LEVEL 112 MEQ/L (98-107); CREATININE FOR GFR 1.29 MG/DL (0.70-1.30); GLOMERULAR FILTRATION RATE > 60.0 (>60); GLUCOSE, FASTING 257 MG/DL (70-100); MAGNESIUM LEVEL 2.1 MG/DL (1.8-2.4); POTASSIUM SERUM 4.2 MEQ/L (3.5-5.1); SODIUM LEVEL 137 MEQ/L (136-145)
[2021-01-13] MEDS: cefTRIAXone SOD 1 GM in D5W MINI-BAG PLUS 50 ML IV SCH (16:52)
[2021-01-13] MEDS ORDERED: HumaLOG INSULIN (NovoLOG) PER UNIT SC ONE (17:00)
[2021-01-13] MEDS: ACETAMINOPHEN TAB 650MG DOSE (2X325MG) PO PRN (17:36)
[2021-01-13] MEDS: HumaLOG INSULIN (NovoLOG) PER UNIT SC SCH (17:54)
[2021-01-13 20:03] LABS: ACETONE/KETONE 19.68 MG/DL (<2.81); CALCIUM LEVEL 8.7 MG/DL (8.5-10.1); CREATININE FOR GFR 1.46 MG/DL (0.70-1.30); GLOMERULAR FILTRATION RATE 55.3 (>60); PHOSPHORUS LEVEL 1.6 MG/DL (2.5-4.9); POTASSIUM SERUM 3.6 MEQ/L (3.5-5.1)
[2021-01-13] MEDS: ATORVASTATIN 20 MG TAB PO SCH (20:07)
[2021-01-13] MEDS ORDERED: LEVEMIR (INSULIN DETEMIR) 1 UNITS/0.01ML SC SCH (21:00)
[2021-01-13] MEDS ORDERED: NEUTRA-PHOS 1.5 GM PACKET PO SCH (21:00)
[2021-01-13] MEDS: ONDANSETRON 4MG/2ML VIAL IV PRN (21:16)
[2021-01-14] VITALS: BP 109/67
[2021-01-14 00:36] LABS: BLOOD UREA NITROGEN 20 MG/DL (7-18); CREATININE FOR GFR 1.24 MG/DL (0.70-1.30); GLOMERULAR FILTRATION RATE > 60.0 (>60); GLUCOSE, FASTING 314 MG/DL (70-100); POTASSIUM SERUM 4.5 MEQ/L (3.5-5.1); SODIUM LEVEL 138 MEQ/L (136-145)
[2021-01-14 00:37] LABS: CALCIUM LEVEL 8.8 MG/DL (8.5-10.1); CARBON DIOXIDE LEVEL 16 MEQ/L (21-32); CHLORIDE LEVEL 111 MEQ/L (98-107)
[2021-01-14] MEDS: HumaLOG INSULIN (NovoLOG) PER UNIT SC SCH ×4 (00:42→17:48)
[2021-01-14 04:00] VITALS: BP 129/76
[2021-01-14] MEDS: ACETAMINOPHEN TAB 650MG DOSE (2X325MG) PO PRN ×3 (04:26→17:48)
[2021-01-14] MEDS: ONDANSETRON 4MG/2ML VIAL IV PRN ×2 (04:34→17:49)
[2021-01-14 05:10] LABS: BASO % 0.2 % (0.0-1.0); EOS % 0.3 % (0.0-3.0); HEMOGLOBIN 12.2 g/dl (13.5-17.5); LYMPH # 1.6 10^3/uL (1.5-5.0); LYMPH % 16.7 % (24.0-44.0); MEAN CORPUSCULAR HEMOGLOBIN 28.2 pg (27.0-33.0); MEAN CORPUSCULAR HGB CONC 33.9 g/dl (32.0-36.5); MEAN CORPUSCULAR VOLUME 83.3 fl (80.0-96.0); MONO # 1.1 10^3/uL (0.0-0.8); MONO % 11.7 % (2.0-8.0); NEUTROPHILS # 6.8 10^3/uL (1.5-8.5); NEUTROPHILS % 70.8 % (36.0-66.0); PLATELET COUNT, AUTOMATED 279 10^3/uL (150-450); RED BLOOD COUNT 4.32 10^6/uL (4.30-6.10); WHITE BLOOD COUNT 9.6 10^3/uL (4.0-10.0)
[2021-01-14 05:33] LABS: BLOOD UREA NITROGEN 17 MG/DL (7-18); CALCIUM LEVEL 9.1 MG/DL (8.5-10.1); CARBON DIOXIDE LEVEL 24 MEQ/L (21-32); CHLORIDE LEVEL 112 MEQ/L (98-107); CREATININE FOR GFR 0.94 MG/DL (0.70-1.30); GLOMERULAR FILTRATION RATE > 60.0 (>60); GLUCOSE, FASTING 186 MG/DL (70-100); PHOSPHORUS LEVEL 2.3 MG/DL (2.5-4.9); SODIUM LEVEL 143 MEQ/L (136-145)
[2021-01-14] MEDS: HEPARIN SOD (PORCINE) 5000UNITS/ML 1ML VIAL/SYRINGE SC SCH ×3 (05:58→21:25)
[2021-01-14 07:06] LABS: ACETONE/KETONE 16.03 MG/DL (<2.81)
[2021-01-14 08:00] VITALS: BP 128/80
[2021-01-14] MEDS: NEUTRA-PHOS 1.5 GM PACKET PO SCH ×4 (08:01→21:24)
[2021-01-14] MEDS: OMEPRAZOLE 20 MG CAP PO SCH (08:01)
[2021-01-14] MEDS ORDERED: LEVEMIR (INSULIN DETEMIR) 1 UNITS/0.01ML SC SCH (09:00)
[2021-01-14 14:48] VITALS: BP 115/72
[2021-01-14] MEDS: cefTRIAXone SOD 1 GM in D5W MINI-BAG PLUS 50 ML IV SCH (15:25)
--- NOTE | 2021-01-14 16:21 | IPNPDOC ---
Text Note Date of Service The patient was seen on 01/14/21. NOTE Subjective: Patient seen and examined this morning at bedside. No acute overnight events reported. Patient denies any medical complaints although he is somewhat groggy being awoken from sleep. Objective: VITAL SIGNS: See below GENERAL: Alert, comfortable, in no acute distress HEENT: Normocephalic, atraumatic, sclera anicteric, moist mucous membranes CARDIOVASCULAR: Regular rate and rhythm, normal S1 and S2. No murmurs, rubs, or gallops RESPIRATORY: Clear to auscultation bilaterally with equal air entry bilaterally. No wheezing, rhonchi, or rales. ABDOMEN: Mild epigastric tenderness to deep palpation. Soft, nondistended, bowel sounds present, no masses or hepatosplenomegaly appreciated EXTREMITIES: No edema A/P: 45 year old male with PMHx of IDDMT2 with recent hx DKA x3, psychiatric hx, hypothyroidism who presented to the ED via EMS due to hyperventilation found to have anion gap metabolic acidosis with elevated ketones suggestive of DKA likely secondary to medical noncompliance vs infection, admitted for further treatment. Pt was found to be COVID-19 positive on admission. #DKA - resolved - still titrating his sc insulin - continuing with q6h checks and correction - Suspected cause is non-compliance with home meds, which he admits to and states he does not need medicine as he does not believe he has diabetes. #IDDMT2 - noncompliant with medications. HgA1c 12.2 - restart levemir and SSI ACHS this morning with consistent carb diet # SIRS criteria with possible infection - 3/4 on admission with WBC elevated at 20.2, HR 133, RR 30-40. Pt afebrile. - HR and RR improved with treatment of DKA, WBC remains elevated which may be reactive. - CXR and CTA chest was negative for any signs of PNA or acute process. UA negative for infection. Blood cultures pending. - Pt has been empirically started on Meropenem, now switched to ceftriaxone (day #3) for coverage due to leukocytosis and DKA. #COVID-19 - asymptomatic #ANA - resolved - Likely prerenal 2/2 dehydration with DKA - s/p fluid resuscitation, expect improvement over next 24hr - consider further work up if not improved #Hypothyroidism - TSH low on recent lab work, recheck remains lows - will hold home levothyroxine DVT Prophylaxis: sc heparin DISPOSITION: pending improvement in blood sugar and titrating insulin therapy, anticipating discharge in 24-48 hours Melissa CONKLIN, I+O Melissa CONKLIN I+O Laboratory Tests 01/13/21 19:28 01/14/21 00:01 01/14/21 04:48 Vital Signs Date Time Temp Pulse Resp B/P (MAP) Pulse Ox O2 Delivery O2 Flow Rate FiO2 01/14/21 14:48 98.9 88 18 115/72 (86) 96 Room Air I&O- Last 24 Hours up to 6 AM 01/14/21 06:00 Intake Total 4453 ml Output Total 3300 ml Balance 1153 ml JOVITA ROBERTSON MD Jan 14, 2021 16:21
[2021-01-14 20:00] VITALS: BP 112/72
[2021-01-14] MEDS: ATORVASTATIN 20 MG TAB PO SCH (21:24)
[2021-01-14] MEDS: LEVEMIR (INSULIN DETEMIR) 1 UNITS/0.01ML SC SCH (21:24)
[2021-01-15] MEDS: HumaLOG INSULIN (NovoLOG) PER UNIT SC SCH ×5 (00:26→21:34)
[2021-01-15] MEDS ORDERED: RAMELTEON 8 MG TAB (ROZEREM) PO PRN (02:55)
[2021-01-15 04:00] VITALS: BP 125/78
[2021-01-15] MEDS: HEPARIN SOD (PORCINE) 5000UNITS/ML 1ML VIAL/SYRINGE SC SCH ×3 (06:35→21:33)
[2021-01-15 07:51] LABS: BASO % 0.4 % (0.0-1.0); EOS # 0.1 10^3/uL (0.0-0.5); EOS % 1.2 % (0.0-3.0); HEMOGLOBIN 11.8 g/dl (13.5-17.5); LYMPH # 2.8 10^3/uL (1.5-5.0); LYMPH % 40.1 % (24.0-44.0); MEAN CORPUSCULAR HEMOGLOBIN 28.9 pg (27.0-33.0); MEAN CORPUSCULAR HGB CONC 34.7 g/dl (32.0-36.5); MEAN CORPUSCULAR VOLUME 83.1 fl (80.0-96.0); MONO # 0.8 10^3/uL (0.0-0.8); MONO % 11.3 % (2.0-8.0); NEUTROPHILS # 3.2 10^3/uL (1.5-8.5); NEUTROPHILS % 46.6 % (36.0-66.0); PLATELET COUNT, AUTOMATED 245 10^3/uL (150-450); RED BLOOD COUNT 4.09 10^6/uL (4.30-6.10); WHITE BLOOD COUNT 6.9 10^3/uL (4.0-10.0)
[2021-01-15 08:11] LABS: BLOOD UREA NITROGEN 19 MG/DL (7-18); CALCIUM LEVEL 8.8 MG/DL (8.5-10.1); CARBON DIOXIDE LEVEL 32 MEQ/L (21-32); CHLORIDE LEVEL 109 MEQ/L (98-107); CREATININE FOR GFR 0.66 MG/DL (0.70-1.30); GLOMERULAR FILTRATION RATE > 60.0 (>60); GLUCOSE, FASTING 130 MG/DL (70-100); PHOSPHORUS LEVEL 3.9 MG/DL (2.5-4.9); POTASSIUM SERUM 3.8 MEQ/L (3.5-5.1); SODIUM LEVEL 146 MEQ/L (136-145)
[2021-01-15] MEDS: OMEPRAZOLE 20 MG CAP PO SCH (09:33)
[2021-01-15] MEDS: NEUTRA-PHOS 1.5 GM PACKET PO SCH ×4 (09:33→21:34)
[2021-01-15] MEDS: LEVEMIR (INSULIN DETEMIR) 1 UNITS/0.01ML SC SCH ×2 (09:34→21:32)
[2021-01-15] MEDS: ACETAMINOPHEN TAB 650MG DOSE (2X325MG) PO PRN (10:32)
[2021-01-15] MEDS: ONDANSETRON 4MG/2ML VIAL IV PRN (10:32)
--- NOTE | 2021-01-15 11:06 | IPNPDOC ---
Text Note Date of Service The patient was seen on 01/15/21. NOTE Subjective: Patient seen and examined this morning at bedside. No acute overnight events reported. This morning patient notes headaches, nausea, general malaise. He again states his diagnosis of diabetes was waived by previous physicians. Objective: VITAL SIGNS: See below GENERAL: Alert, comfortable, in no acute distress HEENT: Normocephalic, atraumatic, sclera anicteric, moist mucous membranes CARDIOVASCULAR: Regular rate and rhythm, normal S1 and S2. No murmurs, rubs, or gallops RESPIRATORY: Clear to auscultation bilaterally with equal air entry bilaterally. No wheezing, rhonchi, or rales. ABDOMEN: Mild epigastric tenderness to deep palpation. Soft, nondistended, bowel sounds present, no masses or hepatosplenomegaly appreciated EXTREMITIES: No edema A/P: 45 year old male with PMHx of IDDMT2 with recent hx DKA x3, psychiatric hx, hypothyroidism who presented to the ED via EMS due to hyperventilation found to have anion gap metabolic acidosis with elevated ketones suggestive of DKA likely secondary to medical noncompliance vs infection, admitted for further treatment. Pt was found to be COVID-19 positive on admission. #DKA - resolved - still titrating his sc insulin - transition to achs checks and correction - Suspected cause is non-compliance with home meds, which he admits to and states he does not need medicine as he does not believe he has diabetes. #IDDMT2 - noncompliant with medications. HgA1c 12.2 - restart levemir and SSI ACHS this morning with consistent carb diet # SIRS criteria with possible infection - 3/4 on admission with WBC elevated at 20.2, HR 133, RR 30-40. Pt afebrile. - HR and RR improved with treatment of DKA, WBC remains elevated which may be reactive. - CXR and CTA chest was negative for any signs of PNA or acute process. UA negative for infection. Blood cultures pending. - Pt has been empirically started on Meropenem, now switched to ceftriaxone (day #3) for coverage due to leukocytosis and DKA. #COVID-19 - asymptomatic #ANA - resolved - Likely prerenal 2/2 dehydration with DKA - s/p fluid resuscitation, expect improvement over next 24hr - consider further work up if not improved #Hypothyroidism - TSH low on recent lab work, recheck remains lows - will hold home levothyroxine DVT Prophylaxis: sc heparin DISPOSITION: pending clinical improvement, anticipating discharge in 24-48 hours VS,Melissa, I+O VS, Melissa, I+O Laboratory Tests 01/15/21 07:14 Vital Signs Date Time Temp Pulse Resp B/P (MAP) Pulse Ox O2 Delivery O2 Flow Rate FiO2 01/15/21 04:00 98.8 78 18 125/78 (94) 98 Room Air I&O- Last 24 Hours up to 6 AM 01/15/21 06:00 Intake Total 2100 ml Output Total 0 ml Balance 2100 ml JOVITA ROBERTSON MD Jan 15, 2021 11:06
[2021-01-15 12:00] VITALS: BP 100/65
[2021-01-15] MEDS: cefTRIAXone SOD 1 GM in D5W MINI-BAG PLUS 50 ML IV SCH (17:15)
[2021-01-15 21:22] VITALS: BP 118/72
[2021-01-15] MEDS: ATORVASTATIN 20 MG TAB PO SCH (21:33)
[2021-01-16 04:28] VITALS: BP 112/71
[2021-01-16] MEDS: ACETAMINOPHEN TAB 650MG DOSE (2X325MG) PO PRN ×2 (06:31→10:35)
[2021-01-16] MEDS: HEPARIN SOD (PORCINE) 5000UNITS/ML 1ML VIAL/SYRINGE SC SCH ×3 (06:31→20:07)
[2021-01-16 07:03] LABS: BASO % 0.6 % (0.0-1.0); EOS # 0.1 10^3/uL (0.0-0.5); EOS % 1.6 % (0.0-3.0); HEMATOCRIT 33.8 % (42.0-52.0); HEMOGLOBIN 11.4 g/dl (13.5-17.5); LYMPH # 2.2 10^3/uL (1.5-5.0); LYMPH % 32.6 % (24.0-44.0); MEAN CORPUSCULAR HEMOGLOBIN 28.5 pg (27.0-33.0); MEAN CORPUSCULAR HGB CONC 33.7 g/dl (32.0-36.5); MEAN CORPUSCULAR VOLUME 84.5 fl (80.0-96.0); MONO # 0.6 10^3/uL (0.0-0.8); NEUTROPHILS # 3.8 10^3/uL (1.5-8.5); NEUTROPHILS % 55.9 % (36.0-66.0); PLATELET COUNT, AUTOMATED 237 10^3/uL (150-450); WHITE BLOOD COUNT 6.8 10^3/uL (4.0-10.0)
[2021-01-16 07:24] LABS: BLOOD UREA NITROGEN 15 MG/DL (7-18); CALCIUM LEVEL 8.6 MG/DL (8.5-10.1); CARBON DIOXIDE LEVEL 33 MEQ/L (21-32); CHLORIDE LEVEL 102 MEQ/L (98-107); CREATININE FOR GFR 0.72 MG/DL (0.70-1.30); GLOMERULAR FILTRATION RATE > 60.0 (>60); GLUCOSE, FASTING 259 MG/DL (70-100); MAGNESIUM LEVEL 1.7 MG/DL (1.8-2.4); PHOSPHORUS LEVEL 3.9 MG/DL (2.5-4.9); POTASSIUM SERUM 3.1 MEQ/L (3.5-5.1); SODIUM LEVEL 140 MEQ/L (136-145)
[2021-01-16] MEDS: OMEPRAZOLE 20 MG CAP PO SCH (08:20)
[2021-01-16] MEDS: LEVEMIR (INSULIN DETEMIR) 1 UNITS/0.01ML SC SCH ×2 (08:20→20:08)
[2021-01-16] MEDS: NEUTRA-PHOS 1.5 GM PACKET PO SCH ×4 (08:20→20:08)
[2021-01-16] MEDS: HumaLOG INSULIN (NovoLOG) PER UNIT SC SCH ×4 (08:21→20:37)
[2021-01-16] MEDS ORDERED: POTASSIUM CHLORIDE 10 MEQ SR TABLET PO ONE (09:00)
[2021-01-16] MEDS: ONDANSETRON 4MG/2ML VIAL IV PRN ×2 (10:38→20:18)
[2021-01-16] MEDS ORDERED: OMEP-218 PO (11:25)
[2021-01-16] MEDS ORDERED: METF10004 PO (11:25)
[2021-01-16 12:05] VITALS: BP 103/54
[2021-01-16] MEDS ORDERED: MAGNESIUM OXIDE 400MG TAB (MAG-OX) PO ONE (13:00)
[2021-01-16] MEDS ORDERED: metFORMIN (GLUCOPHAGE) 1000 MG TABLET PO ONE (14:00)
--- NOTE | 2021-01-16 16:02 | IPNPDOC ---
Text Note Date of Service The patient was seen on 01/16/21. NOTE Subjective: Patient is a 45-year-old male with a PMHx of IDDM2, DKA x3, Psychiatric history, Hypothyroidism who presented to the emergency room via EMS for shortness of breath, found to be in DKA. Patient was admitted to the hospital service for further evaluation and treatment. Patient was seen and examined at the bedside. Currently patient denies any headache, nausea, vomiting, chest pain, shortness breath, palpitations, abdominal pain, constipation, or urinary discomfort. Objective: Vitals (See below) General: Lying in bed, no acute distress, comfortable, AAOx3 HEENT: NC, AT CVS: +S1S2 Lungs: Fair air entry b/l, -w/r/r Abdomen: Soft, ND, NT Extremities: - Edema, - Calf tenderness Assessment and plan: s/p DKA - likely 2/2 non-compliance with medications - s/p Insulin drip - Patient reports that he does not believe he has diabetes and keeps mentioning that he has had providers in the past that have given him "waivers" IDDMT2 - Noncompliant with medications; HgA1c 12.2 - c/w ISS and Levemir - Will provide Metformin today; anticipate continuing this on discharge Psychiatric history - Discuss case with psychiatry this morning. Will evaluate patient by this afternoon SIRS criteria with possible infection - Septic workup remains negative - UA negative - CXR 2: Essentially negative portable chest. There is no interval change. - CTA chest 2: - Currently not on medications COVID-19 - Remains asymptomatic - Continue with supportive care s/p ANA - likely prerenal 2/2 dehydration with DKA Hypothyroidism - TSH suppressed - Levothyroxine on hold DVT Prophylaxis - c/w Heparin Disposition: - Pending transportation / Psychiatric clearance - Will ALC today VS,Fishbone, I+O VS, Fishbone, I+O Laboratory Tests 01/16/21 06:45 Vital Signs Date Time Temp Pulse Resp B/P (MAP) Pulse Ox O2 Delivery O2 Flow Rate FiO2 01/16/21 12:05 97.8 75 19 103/54 (70) 94 Room Air I&O- Last 24 Hours up to 6 AM 01/16/21 06:00 Intake Total 2700 ml Balance 2700 ml MATTHEW HERNANDEZ MD Jan 16, 2021 16:02
[2021-01-16] MEDS ORDERED: metFORMIN (GLUCOPHAGE) 1000 MG TABLET PO SCH (18:00)
[2021-01-16] MEDS: ATORVASTATIN 20 MG TAB PO SCH (20:07)
--- NOTE | 2021-01-16 23:26 | MHCR ---
[facility] CONSULTATION DATE: 01/16/2021 IDENTIFYING DATA: Patient is a 45-year-old male admitted for DKA, currently in COVID Unit getting treatment. Consult was called for assessment of capacity. MENTAL STATUS EXAMINATION: He is alert and oriented. Cooperative. Made good eye contact. Psychomotor activity is normal. Speech rate, rhythm, volume are good. Mood is euthymic. Affect is appropriate for the mood. Denied any auditory or visual hallucinations. Denied suicidal or homicidal ideas. Insight and judgment are good. CAPACITY ASSESSMENT: Based on my evaluation, this patient expresses consistent preference regarding the proposed treatment. Does have factual understanding of current situation evidenced by patient understands nature of his illness. He enumerated all the diagnoses he has. He reports after the discharge, he has to take his medications and when asked about what will happen if he does not comply with the treatment, says it is very obvious that I will return back with the same situation. Does appreciate the risks and benefits of the treatment and no treatment and able to rationally manipulate the information. The patient has got capacity to make his decision about discharge.
[2021-01-17] MEDS: HEPARIN SOD (PORCINE) 5000UNITS/ML 1ML VIAL/SYRINGE SC SCH ×2 (05:57→12:50)
[2021-01-17 06:00] VITALS: BP 123/79
[2021-01-17] MEDS: HumaLOG INSULIN (NovoLOG) PER UNIT SC SCH ×2 (07:36→12:49)
[2021-01-17] MEDS: NEUTRA-PHOS 1.5 GM PACKET PO SCH ×2 (07:36→12:49)
[2021-01-17] MEDS: OMEPRAZOLE 20 MG CAP PO SCH (07:36)
[2021-01-17] MEDS: LEVEMIR (INSULIN DETEMIR) 1 UNITS/0.01ML SC SCH (07:36)
[2021-01-17] MEDS ORDERED: metFORMIN (GLUCOPHAGE) 1000 MG TABLET PO SCH (08:00)
[2021-01-17 08:43] LABS: BASO % 0.4 % (0.0-1.0); EOS # 0.2 10^3/uL (0.0-0.5); EOS % 2.2 % (0.0-3.0); HEMOGLOBIN 12.6 g/dl (13.5-17.5); LYMPH # 2.8 10^3/uL (1.5-5.0); LYMPH % 39.1 % (24.0-44.0); MEAN CORPUSCULAR HEMOGLOBIN 28.4 pg (27.0-33.0); MEAN CORPUSCULAR HGB CONC 33.2 g/dl (32.0-36.5); MEAN CORPUSCULAR VOLUME 85.8 fl (80.0-96.0); MONO # 0.5 10^3/uL (0.0-0.8); MONO % 7.2 % (2.0-8.0); NEUTROPHILS # 3.6 10^3/uL (1.5-8.5); NEUTROPHILS % 50.5 % (36.0-66.0); PLATELET COUNT, AUTOMATED 269 10^3/uL (150-450); RED BLOOD COUNT 4.43 10^6/uL (4.30-6.10); WHITE BLOOD COUNT 7.2 10^3/uL (4.0-10.0)
[2021-01-17 09:03] LABS: BLOOD UREA NITROGEN 12 MG/DL (7-18); CALCIUM LEVEL 8.7 MG/DL (8.5-10.1); CARBON DIOXIDE LEVEL 34 MEQ/L (21-32); CHLORIDE LEVEL 103 MEQ/L (98-107); CREATININE FOR GFR 0.66 MG/DL (0.70-1.30); GLOMERULAR FILTRATION RATE > 60.0 (>60); GLUCOSE, FASTING 173 MG/DL (70-100); MAGNESIUM LEVEL 1.8 MG/DL (1.8-2.4); PHOSPHORUS LEVEL 3.5 MG/DL (2.5-4.9); POTASSIUM SERUM 3.8 MEQ/L (3.5-5.1); SODIUM LEVEL 140 MEQ/L (136-145)
[2021-01-17] MEDS ORDERED: BASA100I SC (10:16)
[2021-01-17] MEDS: ONDANSETRON 4MG/2ML VIAL IV PRN (10:53)
--- NOTE | 2021-01-17 12:08 | DS.PDOC ---
Discharge Summary General Date of Admission Jan 12, 2021 at 14:22 Date of Discharge 01/17/2021 Discharge Summary PROCEDURES PERFORMED DURING STAY: [None]. ADMITTING DIAGNOSES / DISCHARGE DIAGNOSES: s/p DKA - likely 2/2 non-compliance with medications IDDMT2 Psychiatric history SIRS criteria with possible infection COVID-19 s/p ANA - likely prerenal 2/2 dehydration with DKA Hypothyroidism DVT Prophylaxis COMPLICATIONS/CHIEF COMPLAINT: [place] off HISTORY OF PRESENT ILLNESS: Patient is a 45-year-old male with a PMHx of IDDM2, DKA x3, Psychiatric history, Hypothyroidism who presented to the emergency room via EMS for shortness of breath, found to be in DKA. Patient was admitted to the [facility] service for further evaluation and treatment. HOSPITAL COURSE: s/p DKA - likely 2/2 non-compliance with medications - s/p Insulin drip - Patient reports that he does agree with the diagnosis of diabetes at this time; however yesterday was apprehensive IDDMT2 - Noncompliant with medications; HgA1c 12.2 - c/w ISS and Levemir - Will provide Metformin and long acting insulin on discharge - Patient has been instructed to follow-up with his primary care provider within the next 7 days Psychiatric history - Psychiatry has evaluated patient; patient does have capacity to make decisions SIRS criteria with possible infection - Septic workup remains negative - UA negative - CXR 4/2: Essentially negative portable chest. There is no interval change. - CTA chest 42: Significant image degradation from beam hardening artifact as discussed. No central pulmonary emboli are identified. The lobe, segment and peripheral pulmonary arteries are suboptimally demonstrated. There are no infiltrates or pleural effusions. There are no nodules or masses. Cardiac size is normal. No pericardial effusion. - s/p Ceftriaxone x 3 days COVID-19 - Remains asymptomatic - c/w supportive care s/p ANA - likely prerenal 2/2 dehydration with DKA Hypothyroidism - TSH suppressed - Levothyroxine on hold DVT Prophylaxis - c/w Heparin DISCHARGE MEDICATIONS: Please see below. ALLERGIES: Please see below. PHYSICAL EXAMINATION ON DISCHARGE: Vitals (See below) General: Lying in bed, appears comfortable, awake, alert, oriented to person, place and time HEENT: NC, AT CVS: +S1S2 Lungs: Fair air entry b/l, no wheezing, rhonchi or rales Abdomen: Soft, nondistended and nontender Extremities: No evidence of edema, - Calf tenderness LABORATORY DATA: Please see below. ACTIVITY: [As tolerated]. DISCHARGE PLAN: Follow-up with primary care provider within the next 7 days Remain compliant with treatment plan and medications Return to the ER if you experience any problems DISPOSITION: Home with services DISCHARGE CONDITION: [Stable]. TIME SPENT ON DISCHARGE: 35 minutes. Vital Signs/I&Os Vital Signs Date Time Temp Pulse Resp B/P (MAP) Pulse Ox O2 Delivery O2 Flow Rate FiO2 01/17/21 06:00 68 18 123/79 (94) 97 Room Air 01/16/21 12:05 97.8 I&O- Last 24 Hours up to 6 AM 01/17/21 06:00 Intake Total 1680 ml Output Total 0 ml Balance 1680 ml Laboratory Data Labs 24H Laboratory Tests 2 01/16/21 16:34: Bedside Glucose (Misc Panel) 259H 01/16/21 19:36: Bedside Glucose (Misc Panel) 202H 01/17/21 05:56: Bedside Glucose (Misc Panel) 200H 01/17/21 08:27: Immature Granulocyte % (Auto) 0.6, Neutrophils (%) (Auto) 50.5, Lymphocytes (%) (Auto) 39.1, Monocytes (%) (Auto) 7.2, Eosinophils (%) (Auto) 2.2, Basophils (%) (Auto) 0.4, Neutrophils # (Auto) 3.6, Lymphocytes # (Auto) 2.8, Monocytes # (Auto) 0.5, Eosinophils # (Auto) 0.2, Basophils # (Auto) 0.0, Nucleated Red Blood Cells % (auto) 0.0, Anion Gap 3L, Glomerular Filtration Rate > 60.0, Calcium Level 8.7, Phosphorus Level 3.5, Magnesium Level 1.8 01/17/21 11:00: Bedside Glucose (Misc Panel) 194H CBC/BMP Laboratory Tests 01/17/21 08:27 FSBS Laboratory Tests Test 01/16/21 16:34 01/16/21 19:36 01/17/21 05:56 01/17/21 11:00 Range/Units Bedside Glucose (Misc Panel) 259 202 200 194 70-105 MG/DL Microbiology Microbiology 01/12/21 Blood Culture - Preliminary, Resulted No Growth after 72 hours. All specime... 01/12/21 Blood Culture - Preliminary, Resulted No Growth after 72 hours. All specime... Discharge Medications Scheduled Atorvastatin Calcium (Atorvastatin Calcium) 20 Mg Tablet, 20 MG PO QHS, (Reported) Insulin Glargine,Hum.rec.anlog (Basaglar Kwikpen U-100) 100 Unit/1 Ml Insuln.pen, 30 UNITS SC QHS Vial = Pen Levothyroxine Sodium (Synthroid) 150 Mcg Tablet, 150 MCG PO DAILY, (Reported) Metformin HCl (Metformin HCl) 1,000 Mg Tablet, 1 TAB PO BID Omeprazole (Omeprazole) 10 Mg Capsule.dr, 10 MG PO DAILY, (Reported) Omeprazole (Omeprazole) 20 Mg Capsule.dr, 20 MG PO DAILY Scheduled PRN Ibuprofen (Ibuprofen) 800 Mg Tablet, 800 MG PO Q6H PRN for PAIN, (Reported) Allergies Coded Allergies: No Known Allergies (Verified , 01/12/21) MATTHEW HERNANDEZ MD Jan 17, 2021 12:08
== END 2021-01-17 17:21 | disposition home health service (06) | DRG 420 ==
LOC: EDBD 11:23 → M ED 11:23 → M ED INP 14:22 → ENRESERV 14:48 → M ICU 16:45 → M 4MAIN 01-14 14:38
PROVIDERS: ADMIT Internal Medicine; ATTEND Internal Medicine
DX: E11.10 Type 2 diabetes mellitus with ketoacidosis without coma (principal); U07.1 COVID-19; N17.9 Acute kidney failure, unspecified; R65.10 Systemic inflammatory response syndrome (SIRS) of non-infectious origin without acute organ dysfunction; Z91.14 Patient's other noncompliance with medication regimen; E86.0 Dehydration; E03.9 Hypothyroidism, unspecified; Z79.4 Long term (current) use of insulin; Z79.899 Other long term (current) drug therapy

== ENCOUNTER 2021-04-09 19:14 | Emergency (ER) | payer OTHER ==
[~2021-04-09] VITALS: Ht 182.9 cm; Wt 96.9 kg
[~2021-04-09 19:14] MED LIST changes: +AMOX875T2 PO; +ATOR1TAB21 PO; +COMMENTS; +METF10004 PO; +OMEP-218 PO; +OMEP10CA78 PO
[2021-04-09] MEDS ORDERED: AMPICILLIN SOD/SULBACTAM SOD 3 GM in D5W MINI-BAG PLUS 100 ML IV ONE (21:25)
[2021-04-09] MEDS ORDERED: NS 1,000 ML IV ONE (21:25)
[2021-04-09 22:04] LABS: VENOUS HCO3 25.5 MEQ/L (23.0-27.0); VENOUS O2 SATURATION 32.5 % (60.0-80.0); VENOUS PARTIAL PRESSURE CO2 52.8 mmHg (38.0-50.0); VENOUS PARTIAL PRESSURE O2 19.9 mmHg (30.0-50.0); VENOUS PH 7.301 UNITS (7.330-7.430); VENOUS TOTAL CO2 27.1 MEQ/L (24.0-28.0)
[2021-04-09 22:09] LABS: BASO # 0.1 10^3/uL (0.0-0.2); BASO % 0.6 % (0.0-1.0); EOS # 0.1 10^3/uL (0.0-0.5); EOS % 1.3 % (0.0-3.0); HEMATOCRIT 51.2 % (42.0-52.0); HEMOGLOBIN 17.1 g/dl (13.5-17.5); LYMPH # 2.2 10^3/uL (1.5-5.0); LYMPH % 20.2 % (24.0-44.0); MEAN CORPUSCULAR HEMOGLOBIN 29.1 pg (27.0-33.0); MEAN CORPUSCULAR HGB CONC 33.4 g/dl (32.0-36.5); MEAN CORPUSCULAR VOLUME 87.1 fl (80.0-96.0); MONO % 8.7 % (2.0-8.0); NEUTROPHILS # 7.6 10^3/uL (1.5-8.5); NEUTROPHILS % 68.9 % (36.0-66.0); PLATELET COUNT, AUTOMATED 364 10^3/uL (150-450); RED BLOOD COUNT 5.88 10^6/uL (4.30-6.10)
[2021-04-09 22:14] LABS: APPEARANCE, URINE CLEAR (CLEAR); BACTERIA, URINE AUTO NEGATIVE (NEGATIVE); BILIRUBIN, URINE AUTO NEGATIVE (NEGATIVE); BLOOD, URINE BLOOD NEGATIVE (NEGATIVE); COLOR, URINE YELLOW (YELLOW); GLUCOSE, URINE (UA) AUTO 3+ mg/dL (NEGATIVE); KETONE, URINE AUTO 2+ mg/dL (NEGATIVE); LEUKOCYTE ESTERASE, URINE AUTO NEGATIVE (NEGATIVE); MUCUS, URINE SMALL (NEGATIVE); NITRITE, URINE AUTO NEGATIVE (NEGATIVE); PROTEIN, URINE AUTO NEGATIVE (NEGATIVE); RBC, URINE AUTO 0 /HPF (0-3); SPECIFIC GRAVITY URINE AUTO 1.044 (1.002-1.035); SQUAMOUS EPITHELIAL CELL UR AU 0 /HPF (0-6); UROBILINOGEN, URINE AUTO 0.2 mg/dL (0.0-2.0); WBC, URINE AUTO 1 /HPF (0-3)
[2021-04-09] MEDS ORDERED: HumuLIN R (REGULAR) INSULIN (NovoLIN R) **100U/ML** PER UNIT IV ONE (22:30)
[2021-04-09] MEDS ORDERED: KETOROLAC 30 MG/ML 1ML VIAL IV ONE (22:30)
[2021-04-09] MEDS ORDERED: AUGM875T28 PO (23:32)
[2021-04-09 23:56] LABS: ABG BASE EXCESS 0.7 (-2.0-2.0); ABG HCO3 25.1 MEQ/L (22.0-26.0); ABG O2 SATURATION 98.7 % (95.0-99.0); ABG PARTIAL PRESSURE CO2 39.6 mmHg (35.0-45.0); ABG PARTIAL PRESSURE O2 129.9 mmHg (75.0-100.0); ABG STANDARD HCO3 25.1 MEQ/L (22.0-26.0); ABG TOTAL CO2 26.3 MEQ/L (22.0-29.0)
[2021-04-10] MEDS ORDERED: METF500T13 PO (00:10)
[2021-04-10 00:12] VITALS: BP 95/53
== END 2021-04-10 02:10 | disposition home or self-care (01) ==
LOC: M ED 19:14
DX: K04.7 Periapical abscess without sinus (principal); E11.65 Type 2 diabetes mellitus with hyperglycemia; E03.9 Hypothyroidism, unspecified; Z79.899 Other long term (current) drug therapy; Z79.84 Long term (current) use of oral hypoglycemic drugs
CPT/HCPCS: 36600; 80047; 81001; 82803; 85025; 86140; 96365; 96366; 96375; 99284; J1885

== ENCOUNTER 2021-05-11 15:31 | Emergency (ER) | payer OTHER ==
[~2021-05-11] VITALS: Ht 182.9 cm; Wt 98.1 kg
[~2021-05-11 15:31] MED LIST changes: +METF500T13 PO; -OLAN10TA2 PO; +OLAN1TAB20 PO
[2021-05-11] MEDS ORDERED: HumuLIN R (REGULAR) INSULIN (NovoLIN R) **100U/ML** PER UNIT IV ONE (20:00)
[2021-05-11] MEDS ORDERED: NS 1,000 ML IV ONE ×2 (20:00→21:55)
[2021-05-11 20:05] LABS: BASO % 0.3 % (0.0-1.0); EOS # 0.2 10^3/uL (0.0-0.5); EOS % 2.4 % (0.0-3.0); HEMATOCRIT 44.2 % (42.0-52.0); HEMOGLOBIN 14.4 g/dl (13.5-17.5); LYMPH # 1.8 10^3/uL (1.5-5.0); LYMPH % 26.3 % (24.0-44.0); MEAN CORPUSCULAR HEMOGLOBIN 28.9 pg (27.0-33.0); MEAN CORPUSCULAR HGB CONC 32.6 g/dl (32.0-36.5); MEAN CORPUSCULAR VOLUME 88.6 fl (80.0-96.0); MONO # 0.6 10^3/uL (0.0-0.8); MONO % 9.6 % (2.0-8.0); NEUTROPHILS # 4.1 10^3/uL (1.5-8.5); PLATELET COUNT, AUTOMATED 295 10^3/uL (150-450); RED BLOOD COUNT 4.99 10^6/uL (4.30-6.10); WHITE BLOOD COUNT 6.7 10^3/uL (4.0-10.0)
[2021-05-11 20:33] LABS: ALBUMIN 3.8 GM/DL (3.2-5.2); ALT/SGPT 24 U/L (12-78); BILIRUBIN,DIRECT < 0.1 MG/DL (0.0-0.2); BILIRUBIN,TOTAL 0.3 MG/DL (0.2-1.0); LIPASE 111 U/L (73-393)
[2021-05-11 21:28] LABS: APPEARANCE, URINE CLEAR (CLEAR); BACTERIA, URINE AUTO NEGATIVE (NEGATIVE); BILIRUBIN, URINE AUTO NEGATIVE (NEGATIVE); BLOOD, URINE BLOOD NEGATIVE (NEGATIVE); COLOR, URINE STRAW (YELLOW); GLUCOSE, URINE (UA) AUTO 3+ mg/dL (NEGATIVE); KETONE, URINE AUTO 2+ mg/dL (NEGATIVE); LEUKOCYTE ESTERASE, URINE AUTO NEGATIVE (NEGATIVE); NITRITE, URINE AUTO NEGATIVE (NEGATIVE); PROTEIN, URINE AUTO NEGATIVE (NEGATIVE); RBC, URINE AUTO 0 /HPF (0-3); SPECIFIC GRAVITY URINE AUTO 1.039 (1.002-1.035); SQUAMOUS EPITHELIAL CELL UR AU 0 /HPF (0-6); UROBILINOGEN, URINE AUTO 0.2 mg/dL (0.0-2.0); WBC, URINE AUTO 0 /HPF (0-3)
[2021-05-11 22:56] VITALS: BP 101/61
[2021-05-11] MEDS ORDERED: METF500T13 PO (23:22)
== END 2021-05-11 23:43 | disposition home or self-care (01) ==
LOC: M ED 15:31
DX: E11.65 Type 2 diabetes mellitus with hyperglycemia (principal); E86.0 Dehydration; E03.9 Hypothyroidism, unspecified; Z79.84 Long term (current) use of oral hypoglycemic drugs; Z79.899 Other long term (current) drug therapy

== ENCOUNTER 2021-07-15 16:21 | Inpatient (IN) | payer OTHER ==
[~2021-07-15] VITALS: Ht 182.9 cm; Wt 95.8 kg
[2021-07-15] MEDS ORDERED: NS 1,000 ML IV ONE ×2 (16:45→18:55)
[2021-07-15 17:16] LABS: VENOUS BASE EXCESS -18.4 (-2.0-2.0); VENOUS HCO3 9.9 MEQ/L (23.0-27.0); VENOUS O2 SATURATION 49.1 % (60.0-80.0); VENOUS PARTIAL PRESSURE CO2 32.1 mmHg (38.0-50.0); VENOUS PARTIAL PRESSURE O2 24.9 mmHg (30.0-50.0); VENOUS PH 7.109 UNITS (7.330-7.430); VENOUS STANDARD HCO3 10.6 MEQ/L; VENOUS TOTAL CO2 10.9 MEQ/L (24.0-28.0)
[2021-07-15 17:37] LABS: BASO # 0.1 10^3/uL (0.0-0.2); BASO % 0.7 % (0.0-1.0); EOS # 0.1 10^3/uL (0.0-0.5); EOS % 1.6 % (0.0-3.0); HEMATOCRIT 47.9 % (42.0-52.0); HEMOGLOBIN 16.1 g/dl (13.5-17.5); LYMPH # 1.8 10^3/uL (1.5-5.0); LYMPH % 25.5 % (24.0-44.0); MEAN CORPUSCULAR HEMOGLOBIN 29.8 pg (27.0-33.0); MEAN CORPUSCULAR HGB CONC 33.6 g/dl (32.0-36.5); MEAN CORPUSCULAR VOLUME 88.7 fl (80.0-96.0); MONO # 0.5 10^3/uL (0.0-0.8); NEUTROPHILS # 4.4 10^3/uL (1.5-8.5); NEUTROPHILS % 62.9 % (36.0-66.0); PLATELET COUNT, AUTOMATED 343 10^3/uL (150-450)
[2021-07-15 17:45] LABS: OSMOLALITY SERUM 309 MOSM/KG (275-295)
[2021-07-15 17:47] LABS: ALBUMIN 4.1 GM/DL (3.2-5.2); ALT/SGPT 21 U/L (12-78); BILIRUBIN,DIRECT < 0.1 MG/DL (0.0-0.2); BILIRUBIN,TOTAL 0.4 MG/DL (0.2-1.0); BLOOD UREA NITROGEN 11 MG/DL (7-18); CALCIUM LEVEL 8.8 MG/DL (8.5-10.1); CARBON DIOXIDE LEVEL 11 MEQ/L (21-32); CHLORIDE LEVEL 105 MEQ/L (98-107); CK-MB VALUE MASS < 1.0 NG/ML (<3.6); CPK CREATINE PHOSPHOKINASE 37 U/L (39-308); ETHYL ALCOHOL (ETHANOL) < 0.003 % (0.000-0.010); GLOMERULAR FILTRATION RATE > 60.0 (>60); GLUCOSE, FASTING 286 MG/DL (70-100); LIPASE 100 U/L (73-393); MAGNESIUM LEVEL 2.1 MG/DL (1.8-2.4); POTASSIUM SERUM 5.1 MEQ/L (3.5-5.1); SODIUM LEVEL 134 MEQ/L (136-145); TOTAL PROTEIN 7.9 GM/DL (6.4-8.2); TROPONIN I < 0.02 NG/ML (< 0.10)
[2021-07-15 17:48] LABS: ACETONE/KETONE > 46.00 MG/DL (<2.81)
--- NOTE | 2021-07-15 17:53 | REP ---
INDICATION: sob. COMPARISON: Comparison chest x-ray January 12, 2021. TECHNIQUE: Portable upright AP chest radiograph. FINDINGS: The lungs are well inflated and free of infiltrate. Pleural angles are sharp. Heart size is normal. Pulmonary vasculature is not increased. EKG monitoring electrodes are seen. IMPRESSION: No active disease. <Electronically signed by Grayson Berman > 07/15/21 [id number]
[2021-07-15 18:29] LABS: AMPHETAMINES LEVEL URINE NEGATIVE (NEGATIVE); BARBITURATES URINE NEGATIVE (NEGATIVE); BENZODIAZEPINES URINE NEGATIVE (NEGATIVE); CANNABINOIDS URINE NEGATIVE (NEGATIVE); COCAINE METABOLITE URINE NEGATIVE (NEGATIVE); METHADONE URINE NEGATIVE (NEGATIVE); OPIATES URINE NEGATIVE (NEGATIVE); PHENCYCLIDINE URINE NEGATIVE (NEGATIVE)
[2021-07-15] MEDS ORDERED: INSULIN IV RATE CHANGE DOCUMENTATION ML/HR XX SCH (18:55)
[2021-07-15] MEDS ORDERED: INSULIN REGULAR IN 0.9 % NACL 100 UNIT in IV 1 EA IV SCH ×4 (18:55→21:00)
[2021-07-15] MEDS ORDERED: HumuLIN R (REGULAR) INSULIN (NovoLIN R) **100U/ML** PER UNIT IV ONE (18:55)
[2021-07-15] MEDS ORDERED: ACETAMINOPHEN 500 MG TAB PO ONE (19:05)
[2021-07-15] MEDS ORDERED: THERTAB52 PO (19:23)
[2021-07-15] MEDS ORDERED: HOME MED LIST COMPLETE! XX SCH (19:25)
[2021-07-15] MEDS ORDERED: MAALOX 30 ML SUSP *UDC PO PRN (20:10)
[2021-07-15] MEDS ORDERED: MOM 30ML SUSPENSION UDC PO PRN (20:10)
[2021-07-15 20:30] VITALS: BP 123/71
[2021-07-15] MEDS ORDERED: KCL 20MEQ IN 0.45NS 1000ML 1,000 ML IV SCH (20:30)
--- NOTE | 2021-07-15 20:49 | ECGEPIP ---
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
--- NOTE | 2021-07-15 20:57 | HPEPDOC ---
[facility] Medical History & Physical Date of Admission Jul 15, 2021 Date of Service: Jul 15, 2021 History and Physical CHIEF COMPLAINT: elevated BGs HISTORY OF PRESENT ILLNESS: Patient is a 45-year-old male with a past medical h istory of type 2 diabetes, uncontrolled as well as schizophrenia. He has been complaining of increasing polyuria generalized fatigue and thirst for the past several days. 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 and that he does not agree with his diagnosis of diabetes. 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 He also reports to me that he is being persecuted by an assassin. He is however agreeable to an insulin infusion drip as he is being treated for DKA. On arrival his blood sugar was 314. Anion gap 18. Elevated beta hydroxybutyrate, and metabolic acidosis with a pH of 7.1 on ABG. Patient was admitted to ICU for the management of DKA. He is otherwise afebrile, in no respiratory distress with a clean UA. He denies any chest pain shortness of breath palpitations fevers chills nausea vomiting or diarrhea. He does report that he has had bites on his legs by cockroaches and bedbugs he will therefore be placed on contact precautions. eligibility services representative will be consulted. At this time he denies any suicidal or homicidal ideations. He is pleasant and calm. I do not believe there is a need for one-to-one sitter at this time. We will monitor closely. PAST MEDICAL HISTORY: Type 2 diabetes, uncontrolled Frequent admissions for DKA since February 2020. Schizophrenia Hypothyroidism PAST SURGICAL HISTORY: Tonsillectomy SOCIAL HISTORY: Patient denies smoking Patient denies etoh use Patient denies illicit drug use Patient states he lives alone. FAMILY HISTORY: Patient reports a prior history of acute coronary syndrome and family however unable to specify family members. ALLERGIES: Please see below. REVIEW OF SYSTEMS: 10 point ROS conducted, relevant findings are noted in HPI. HOME MEDICATIONS: Please see below. PHYSICAL EXAMINATION: VITAL SIGNS: please see below General: NAD, comfortable HEENT: PERRLA, EOMI, sclerae clear Neck: supple, normal ROM, no JVD Respiratory: lungs CTAB, no wheeze, no rales, no crackles CVS: RRR, normal S1, S2, no murmurs Abdo: soft, no masses, no hepatosplenomegaly, BS+, no rebound tenderness Extremities: no edema, pulses 2+ Skin: Multiple excoriations on anterior surface of legs and feet. No surrounding cellulitis. MSK: no joint deformities, normal ROM. Neuro: no focal neuro deficits, moving all 4 extremities, CN2-12 intact. Strength 5/5 in all 4 extremities. No nystagmus. Psych: calm, cooperative, AAO x 3 LABORATORY DATA: See below. IMAGING: CXR on 08/11/2021: FINDINGS: The lungs are well inflated and free of infiltrate. Pleural angles are sharp. Heart size is normal. Pulmonary vasculature is not increased. EKG monitoring electrodes are seen. IMPRESSION: No active disease. MICROBIOLOGY: Please see below. ASSESSMENT: 45-year-old male with a past medical history of type 2 diabetes, uncontrolled with recurrent admissions for DKA as well as schizophrenia and hy pothyroidism. Presented in DKA with an elevated blood sugars, elevated anion gap and elevated beta hydroxybutyrate. He was acidotic with a pH of 7.1. He started on insulin infusion and admitted to ICU. He does not seem to display signs of infection. We will monitor this closely. . PLAN: DKA: frequent admissions. denies dx of DM2, but is agreeable to treatment. BG 326. pH 7.1. elevated b-hydroxybutarate, AG 18. Started on insulin ggt in ER. S/p 2L NS bolus. Admit to ICU. C/w insulin ggt. IVF 0.45%NS w 20 meq KCL. No use of bicarb at this time. FSBS q1h. BMP,Mg,Phos q4h. [employer] Director ignacio, diabetic education. Hypothyroidism: resume home medications. Schizophrenia: patient is alert, pleasant and cooperative. Denies SI/HI. No indication for 1:1 sitter at this time. Day team to consult psychiatry. DVT ppx: SCDs and TEDs. Dispo: admission expected to span > 2 midnights. Vital Signs Vital Signs Date Time Temp Pulse Resp B/P (MAP) Pulse Ox O2 Delivery O2 Flow Rate FiO2 07/15/21 19:01 82 18 126/74 (91) 100 Room Air 07/15/21 16:38 98.3 Laboratory Data Labs 24H Laboratory Tests 2 07/15/21 16:32: Bedside Glucose (Misc Panel) 314H 07/15/21 16:59: Immature Granulocyte % (Auto) 2.3, Neutrophils (%) (Auto) 62.9, Lymphocytes (%) (Auto) 25.5, Monocytes (%) (Auto) 7.0, Eosinophils (%) (Auto) 1.6, Basophils (%) (Auto) 0.7, Neutrophils # (Auto) 4.4, Lymphocytes # (Auto) 1.8, Monocytes # (Auto) 0.5, Eosinophils # (Auto) 0.1, Basophils # (Auto) 0.1, Nucleated Red Blood Cells % (auto) 0.0, Urine Color STRAW, Urine Appearance CLEAR, Urine pH 5.0, Urine Specific [place] 1.031, Urine Protein 2+H, Urine Glucose (UA) 3+H, Urine Ketones 2+H, Urine Blood 1+H, Urine Nitrite NEGATIVE, Urine Bilirubin NEGATIVE, Urine Urobilinogen 0.2, Urine Leukocyte Esterase NEGATIVE, Urine WBC (Auto) 0, Urine RBC (Auto) 1, Urine Hyaline Casts (Auto) 10, Urine Bacteria (A uto) NEGATIVE, Urine Squamous Epithelial Cells 0, Urine Mucus (Auto) SMALL, Urine Sperm (Auto) , Blood Gas Bicarbonate Standard 10.6, Venous Blood pH 7.109L, Venous Blood Partial Pressure CO2 32.1L, Venous Blood Partial Pressure O2 24.9L, Venous Blood Total Carbon Dioxide 10.9L, Venous Blood HCO3 9.9L, Venous Blood Oxygen Saturation 49.1L, Venous Blood Base Excess -18.4L, Anion Gap 18H, Glomerular Filtration Rate > 60.0, Estimated Mean Plasma Glucose 326H, Hemoglobin A1c 13.0, Osmolality 309H, Calcium Level 8.8, Magnesium Level 2.1, Total Bilirubin 0.4, Direct Bilirubin < 0.1, Aspartate Amino Transf (AST/SGOT) 14, Alanine Aminotransferase (ALT/SGPT) 21, Alkaline Phosphatase 108, Total Creatine Kinase 37L, Creatine Kinase MB < 1.0, Creatine Kinase MB Relative Index 2.70, Troponin I < 0.02, Total Protein 7.9, Albumin 4.1, Albumin/Globulin Ratio 1.1, Lipase 100, Urine Opiates Screen NEGATIVE, Urine Methadone Screen NEGATIVE, Urine Barbiturates Screen NEGATIVE, Urine Phencyclidine Screen NEGATIVE, Urine Amphetamines Screen NEGATIVE, Urine Benzodiazepines Screen NEGATIVE, Urine Cocaine Metabolite Screen NEGATIVE, Urine Cannabinoids Screen NEGATIVE, Ethyl Alcohol Level < 0.003, B-Hydroxybutyrate > 46.00H 07/15/21 19:12: Bedside Glucose (Misc Panel) 252H 07/15/21 20:09: Bedside Glucose (Misc Panel) 229H CBC/BMP Laboratory Tests 07/15/21 16:59 Microbiology Microbiology 07/15/21 Blood Culture, Received Pending 07/15/21 Respiratory Virus Panel (PCR) (ROSAMARIA) - Final, Complete 07/15/21 Blood Culture, Received Pending Home Medications Scheduled Levothyroxine Sodium (Synthroid) 150 Mcg Tablet, 150 MCG PO DAILY Multivitamin,Therapeutic (Thera-Tabs) 1 Each Tablet, 1 TAB PO DAILY Allergies Coded Allergies: No Known Allergies (Verified , 01/12/21) EBONY WILKINSON MD Jul 15, 2021 20:57
[2021-07-15 21:14] VITALS: BP 125/77
[2021-07-15 22:14] LABS: BLOOD UREA NITROGEN 9 MG/DL (7-18); CALCIUM LEVEL 7.8 MG/DL (8.5-10.1); CARBON DIOXIDE LEVEL 10 MEQ/L (21-32); CHLORIDE LEVEL 109 MEQ/L (98-107); CREATININE FOR GFR 0.92 MG/DL (0.70-1.30); GLOMERULAR FILTRATION RATE > 60.0 (>60); GLUCOSE, FASTING 178 MG/DL (70-100); MAGNESIUM LEVEL 1.7 MG/DL (1.8-2.4); PHOSPHORUS LEVEL 1.4 MG/DL (2.5-4.9); POTASSIUM SERUM 3.8 MEQ/L (3.5-5.1); SODIUM LEVEL 136 MEQ/L (136-145)
[2021-07-15] MEDS ORDERED: KCL 20MEQ IN D5/0.45NS 1000ML 1,000 ML IV SCH (22:15)
[2021-07-15] MEDS: INSULIN IV RATE CHANGE DOCUMENTATION ML/HR XX SCH ×2 (22:34→23:10)
[2021-07-16] VITALS: BP 96/55
[2021-07-16] MEDS: INSULIN IV RATE CHANGE DOCUMENTATION ML/HR XX SCH (00:26)
[2021-07-16 00:36] LABS: ABG BASE EXCESS -13.7 (-2.0-2.0); ABG HCO3 11.2 MEQ/L (22.0-26.0); ABG O2 SATURATION 98.5 % (95.0-99.0); ABG PARTIAL PRESSURE CO2 24.7 mmHg (35.0-45.0); ABG PARTIAL PRESSURE O2 123.1 mmHg (75.0-100.0); ABG STANDARD HCO3 14.1 MEQ/L (22.0-26.0); ABG pH (ARTERIAL) 7.276 UNITS (7.350-7.450)
[2021-07-16 00:53] LABS: BLOOD UREA NITROGEN 8 MG/DL (7-18); CALCIUM LEVEL 7.9 MG/DL (8.5-10.1); CARBON DIOXIDE LEVEL 14 MEQ/L (21-32); CHLORIDE LEVEL 110 MEQ/L (98-107); CREATININE FOR GFR 0.91 MG/DL (0.70-1.30); GLOMERULAR FILTRATION RATE > 60.0 (>60); GLUCOSE, FASTING 111 MG/DL (70-100); MAGNESIUM LEVEL 1.6 MG/DL (1.8-2.4); PHOSPHORUS LEVEL 0.9 MG/DL (2.5-4.9); POTASSIUM SERUM 3.6 MEQ/L (3.5-5.1); SODIUM LEVEL 137 MEQ/L (136-145)
[2021-07-16] MEDS ORDERED: LEVEMIR (INSULIN DETEMIR) 1 UNITS/0.01ML SC ONE ×2 (01:05→10:10)
[2021-07-16] MEDS ORDERED: POTASSIUM PHOSPHATE INJ 30 MMOL in D5W 500 ML IV ONE (01:45)
[2021-07-16] MEDS: MAG SULF 1GM/100ML (MAG RUN) 1 GM in IV 1 EA IV SCH ×2 (02:28→03:45)
[2021-07-16] MEDS: ACETAMINOPHEN TAB 650MG DOSE (2X325MG) PO PRN ×2 (03:23→11:34)
[2021-07-16 04:00] VITALS: BP 106/67
[2021-07-16] MEDS ORDERED: DEXTROSE 50% 50 ML SYRINGE IV PRN (07:05)
[2021-07-16] MEDS ORDERED: GLUCOSE 4GM CHEW TABLET PO PRN (07:05)
[2021-07-16] MEDS ORDERED: GLUCAGON INJ 1MG VIAL SC PRN (07:05)
[2021-07-16] MEDS: HumaLOG INSULIN (NovoLOG) PER UNIT SC SCH ×3 (07:49→17:36)
[2021-07-16 08:00] VITALS: BP 103/67
[2021-07-16 08:28] LABS: BLOOD UREA NITROGEN 8 MG/DL (7-18); CALCIUM LEVEL 8.2 MG/DL (8.5-10.1); CARBON DIOXIDE LEVEL 14 MEQ/L (21-32); CHLORIDE LEVEL 106 MEQ/L (98-107); CREATININE FOR GFR 0.91 MG/DL (0.70-1.30); GLOMERULAR FILTRATION RATE > 60.0 (>60); GLUCOSE, FASTING 357 MG/DL (70-100); PHOSPHORUS LEVEL 2.8 MG/DL (2.5-4.9); SODIUM LEVEL 134 MEQ/L (136-145)
[2021-07-16 12:00] VITALS: BP 109/68
[2021-07-16 12:50] LABS: BLOOD UREA NITROGEN 10 MG/DL (7-18); CALCIUM LEVEL 7.6 MG/DL (8.5-10.1); CARBON DIOXIDE LEVEL 16 MEQ/L (21-32); CHLORIDE LEVEL 107 MEQ/L (98-107); CREATININE FOR GFR 0.99 MG/DL (0.70-1.30); GLOMERULAR FILTRATION RATE > 60.0 (>60); GLUCOSE, FASTING 339 MG/DL (70-100); POTASSIUM SERUM 4.1 MEQ/L (3.5-5.1); SODIUM LEVEL 136 MEQ/L (136-145)
[2021-07-16] MEDS: OMEPRAZOLE 20 MG CAP PO SCH (12:54)
--- NOTE | 2021-07-16 14:28 | IPNPDOC ---
Text Note Date of Service The patient was seen on 07/16/21. NOTE Subjective: Patient is a 45-year-old male past history of type 2 diabetes, un controlled as well as schizophrenia. Patient has been complaining of increased polyuria and generalized fatigue and thirst. Patient states that he has been bedbound for the last 2 to 3 weeks and has been having increased shortness of breath over the past few days. Patient has a history of schizophrenia and tells me that he is having an intellectual argument about whether or not he has diabetes. Patient states that 2 doctors at the hospital tell me he has diabetes well 3 tell him he does not have diabetes. Patient is also making statements about him having difficult van and him being followed by [facility] and 05/05. Patient states he is feeling better this morning but still feels weak. Patient was admitted in the hospital for diabetic ketoacidosis and was bridged from insulin drip overnight. Review of systems: General: Patient denies fevers HEENT: Patient denies headaches Cardiovascular: Patient denies chest pain Respiratory: Patient denies shortness of breath, cough GI: Patient denies abdominal pain, nausea, vomiting, diarrhea : Patient denies increased frequency or pain with urination Extremities: Patient denies swelling or pain in extremities Neurological: Patient denies numbness or tingling in legs Physical exam: Vitals: See below General: Alert and oriented male who was sitting up in bed when I walked in. Patient not appear to be in any acute distress. Patient was calm and cooperative. HEENT: Normocephalic, atraumatic, moist mucous membranes. Neck: No lymphadenopathy or thyromegaly Cardiac: Regular rate and rhythm, no murmurs, normal S1, normal S2 Pulm: Clear to auscultation bilaterally. No wheezes, rhonchi, rales Abd: Nondistended, nontender to palpation, normal bowel sounds Ext: No edema bilateral lower extremities Labs: See below Imaging: No new imaging has been performed Assessment/plan: 45-year-old male with a history of type 2 diabetes is poorly controlled to present to the hospital in diabetic ketoacidosis 1. Diabetic ketoacidosis. Patient's gap has closed although the patient's bicarb is quite high. Patient has a history of type 2 diabetes although patient denies this. Patient had an A1c that was 13 which means an average blood gl ucose of 326. Patient's sugars have been around that level. Patient's bicarb has improved with higher doses of Levemir as the patient is most likely and require even higher doses than the 0.5 units/kg. Patient was given 25 units of Levemir total which will be started on. Patient is also on sliding scale coverage. We have labs pending at 4 PM today to ensure the patient is officially out of DKA before the patient can be moved out of the ICU later on today. Patient's other electrolytes have been within normal range. Patient is eating without any difficulty. 2. Schizophrenia. Patient will most likely need psychiatry consult tomorrow morning for possible admission once patient is medically stable. 3. Hypothyroidism. Resume home medications. DVT Prophylaxis: Teds and sequentials Disposition: Pending improvement in diabetic ketoacidosis VS,Fishbone, I+O VS, Fishbone, I+O Laboratory Tests 07/15/21 16:59 07/15/21 21:39 07/16/21 00:10 07/16/21 07:41 07/16/21 11:54 Vital Signs Date Time Temp Pulse Resp B/P (MAP) Pulse Ox O2 Delivery O2 Flow Rate FiO2 07/16/21 12:00 98.3 84 19 109/68 (82) 98 Room Air I&O- Last 24 Hours up to 6 AM 07/16/21 06:00 Intake Total 2444 ml Output Total 500 ml Balance 1944 ml LUIS FELIPE BUSTILLOS DO Jul 16, 2021 14:28
[2021-07-16 17:00] VITALS: BP 109/64
[2021-07-16 17:10] LABS: VENOUS BASE EXCESS -10.5 (-2.0-2.0); VENOUS HCO3 14.9 MEQ/L (23.0-27.0); VENOUS O2 SATURATION 82.9 % (60.0-80.0); VENOUS PARTIAL PRESSURE CO2 32.2 mmHg (38.0-50.0); VENOUS PARTIAL PRESSURE O2 45.4 mmHg (30.0-50.0); VENOUS PH 7.284 UNITS (7.330-7.430); VENOUS TOTAL CO2 15.9 MEQ/L (24.0-28.0)
[2021-07-16 17:55] LABS: BLOOD UREA NITROGEN 12 MG/DL (7-18); CALCIUM LEVEL 7.5 MG/DL (8.5-10.1); CARBON DIOXIDE LEVEL 18 MEQ/L (21-32); CHLORIDE LEVEL 107 MEQ/L (98-107); CREATININE FOR GFR 1.13 MG/DL (0.70-1.30); GLOMERULAR FILTRATION RATE > 60.0 (>60); GLUCOSE, FASTING 346 MG/DL (70-100); MAGNESIUM LEVEL 1.9 MG/DL (1.8-2.4); POTASSIUM SERUM 4.3 MEQ/L (3.5-5.1); SODIUM LEVEL 136 MEQ/L (136-145)
[2021-07-16 19:50] VITALS: BP 113/67
[2021-07-16] MEDS ORDERED: LEVEMIR (INSULIN DETEMIR) 1 UNITS/0.01ML SC SCH (21:00)
[2021-07-16] MEDS ORDERED: HumaLOG INSULIN (NovoLOG) PER UNIT SC SCH (21:00)
[2021-07-17] VITALS: BP 130/77
[2021-07-17 00:34] LABS: BLOOD UREA NITROGEN 14 MG/DL (7-18); CALCIUM LEVEL 8.2 MG/DL (8.5-10.1); CARBON DIOXIDE LEVEL 19 MEQ/L (21-32); CHLORIDE LEVEL 108 MEQ/L (98-107); CREATININE FOR GFR 1.19 MG/DL (0.70-1.30); GLOMERULAR FILTRATION RATE > 60.0 (>60); GLUCOSE, FASTING 282 MG/DL (70-100); MAGNESIUM LEVEL 1.8 MG/DL (1.8-2.4); PHOSPHORUS LEVEL 1.9 MG/DL (2.5-4.9); POTASSIUM SERUM 3.8 MEQ/L (3.5-5.1); SODIUM LEVEL 139 MEQ/L (136-145)
[2021-07-17 04:00] VITALS: BP 116/71
[2021-07-17 08:00] VITALS: BP 109/61
[2021-07-17] MEDS: OMEPRAZOLE 20 MG CAP PO SCH (08:49)
[2021-07-17] MEDS: HumaLOG INSULIN (NovoLOG) PER UNIT SC SCH ×2 (08:49→12:36)
[2021-07-17] MEDS: ACETAMINOPHEN TAB 650MG DOSE (2X325MG) PO PRN (08:50)
[2021-07-17] MEDS ORDERED: LEVEMIR (INSULIN DETEMIR) 1 UNITS/0.01ML SC SCH ×2 (09:00→21:00)
[2021-07-17 09:13] LABS: BASO % 0.8 % (0.0-1.0); EOS # 0.1 10^3/uL (0.0-0.5); EOS % 2.5 % (0.0-3.0); HEMATOCRIT 36.4 % (42.0-52.0); HEMOGLOBIN 12.8 g/dl (13.5-17.5); LYMPH # 1.8 10^3/uL (1.5-5.0); LYMPH % 34.5 % (24.0-44.0); MEAN CORPUSCULAR HEMOGLOBIN 29.6 pg (27.0-33.0); MEAN CORPUSCULAR HGB CONC 35.2 g/dl (32.0-36.5); MEAN CORPUSCULAR VOLUME 84.1 fl (80.0-96.0); MONO # 0.5 10^3/uL (0.0-0.8); MONO % 10.1 % (2.0-8.0); NEUTROPHILS # 2.7 10^3/uL (1.5-8.5); NEUTROPHILS % 51.7 % (36.0-66.0); PLATELET COUNT, AUTOMATED 247 10^3/uL (150-450); RED BLOOD COUNT 4.33 10^6/uL (4.30-6.10); WHITE BLOOD COUNT 5.3 10^3/uL (4.0-10.0)
[2021-07-17 10:01] LABS: ALBUMIN 3.1 GM/DL (3.2-5.2); ALT/SGPT 14 U/L (12-78); BILIRUBIN,TOTAL 0.4 MG/DL (0.2-1.0); BLOOD UREA NITROGEN 13 MG/DL (7-18); CALCIUM LEVEL 8.5 MG/DL (8.5-10.1); CARBON DIOXIDE LEVEL 23 MEQ/L (21-32); CHLORIDE LEVEL 106 MEQ/L (98-107); CREATININE FOR GFR 0.85 MG/DL (0.70-1.30); GLOMERULAR FILTRATION RATE > 60.0 (>60); GLUCOSE, FASTING 265 MG/DL (70-100); MAGNESIUM LEVEL 1.7 MG/DL (1.8-2.4); POTASSIUM SERUM 3.4 MEQ/L (3.5-5.1); SODIUM LEVEL 137 MEQ/L (136-145); TOTAL PROTEIN 5.9 GM/DL (6.4-8.2)
[2021-07-17 12:00] VITALS: BP 100/64
[2021-07-17] MEDS ORDERED: MAGNESIUM OXIDE 400MG TAB (MAG-OX) PO ONE (12:30)
[2021-07-17] MEDS ORDERED: INSUDET SC ×2 (13:07)
[2021-07-17] MEDS ORDERED: METF750T36 PO (13:07)
[2021-07-17] MEDS ORDERED: ALCOPAD25 TOP (13:08)
[2021-07-17] MEDS ORDERED: BLOOKIT21 XX (13:08)
[2021-07-17] MEDS ORDERED: LANC30MI XX (13:08)
[2021-07-17] MEDS ORDERED: GLUC1TES2 XX (13:08)
[2021-07-17] MEDS ORDERED: PEN1MIS21 SC (13:08)
[2021-07-17 16:18] LABS: FREE THYROXINE INDEX 2.5 % (1.4-3.8); THYROID STIMULATING HORMONE 0.325 uIU/ML (0.358-3.740); THYROXINE (T4) 6.7 UG/DL (4.5-12.0)
--- NOTE | 2021-07-17 18:49 | DS.PDOC ---
Discharge Summary General Date of Admission Jul 15, 2021 at 20:09 Date of Discharge 07/17/21 Discharge Summary PROCEDURES PERFORMED DURING STAY: [None]. ADMITTING DIAGNOSES: Diabetic ketoacidosis Schizophrenia Hypothyroidism DISCHARGE DIAGNOSES: Diabetic ketoacidosis Schizophrenia Hypothyroidism COMPLICATIONS/CHIEF COMPLAINT: Dka,Schizophrenia. HISTORY OF PRESENT ILLNESS:Patient is a 45-year-old male with a past medical history of type 2 diabetes, uncontrolled as well as schizophrenia. He has been complaining of increasing polyuria generalized fatigue and thirst for the past several days. 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 He also reports to me that he is being persecuted by an assassin. He is however agreeable to an insulin infusion drip as he is being treated for DKA. On arrival his blood sugar was 314. Anion gap 18. Elevated beta hydroxybutyrate, and metabolic acidosis with a pH of 7.1 on ABG. Patient was admitted to ICU for the management of DKA. He is otherwise afebrile, in no respiratory distress with a clean UA. He denies any chest pain shortness of breath palpitations fevers chills nausea vomiting or diarrhea. He does report that he has had bites on his legs by cockroaches and bedbugs he will therefore be placed on contact precautions. staff services manager will be consulted. At this time he denies any suicidal or homicidal ideations. He is pleasant and calm. HOSPITAL COURSE: During the hospital stay patient received insulin drip, his glucose level was stabilized. Patient told me that he will control his diabetes with diet and he does not believe in diabetes. Psych team evaluated him and recommended transferring to mental health unit DISCHARGE MEDICATIONS: Please see below. ALLERGIES: Please see below. PHYSICAL EXAMINATION ON DISCHARGE: VITAL SIGNS: Please see below. General: Alert and oriented male who was sitting up in bed when I walked in. Patient not appear to be in any acute distress. Patient was calm and cooperative. HEENT: Normocephalic, atraumatic, moist mucous membranes. Neck: No lymphadenopathy or thyromegaly Cardiac: Regular rate and rhythm, no murmurs, normal S1, normal S2 Pulm: Clear to auscultation bilaterally. No wheezes, rhonchi, rales Abd: Nondistended, nontender to palpation, normal bowel sounds Ext: No edema bilateral lower extremities LABORATORY DATA: Please see below. PROGNOSIS: Fair ACTIVITY: [As tolerated]. DIET: Diabetes DISPOSITION: 64 [facility]. ITEMS TO FOLLOWUP ON ON OUTPATIENT: With PCP and psychiatrist DISCHARGE CONDITION: [Stable]. TIME SPENT ON DISCHARGE: 40 minutes. Vital Signs/I&Os Vital Signs Date Time Temp Pulse Resp B/P (MAP) Pulse Ox O2 Delivery O2 Flow Rate FiO2 07/17/21 12:00 97.2 83 20 100/64 (76) 97 Room Air I&O- Last 24 Hours up to 6 AM 07/17/21 06:00 Intake Total 4005 ml Output Total 4875 ml Balance -870 ml Laboratory Data Labs 24H Laboratory Tests 2 07/16/21 20:39: Bedside Glucose (Misc Panel) 335H 07/16/21 23:51: Anion Gap 12, Glomerular Filtration Rate > 60.0, Calcium Level 8.2L, Phosphorus Level 1.9L, Magnesium Level 1.8 07/16/21 23:53: Bedside Glucose (Misc Panel) 313H 07/17/21 04:11: Bedside Glucose (Misc Panel) 232H 07/17/21 08:36: Immature Granulocyte % (Auto) 0.4, Neutrophils (%) (Auto) 51.7, Lymphocytes (%) (Auto) 34.5, Monocytes (%) (Auto) 10.1H, Eosinophils (%) (Auto) 2.5, Basophils (%) (Auto) 0.8, Neutrophils # (Auto) 2.7, Lymphocytes # (Auto) 1.8, Monocytes # (Auto) 0.5, Eosinophils # (Auto) 0.1, Basophils # (Auto) 0.0, Nucleated Red Blood Cells % (auto) 0.0, Anion Gap 8, Glomerular Filtration Rate > 60.0, Calcium Level 8.5, Magnesium Level 1.7L, Total Bilirubin 0.4, Aspartate Amino Transf (AST/SGOT) 7, Alanine Aminotransferase (ALT/SGPT) 14, Alkaline Phosphatase 77, Total Protein 5.9#L, Albumin 3.1#L, Albumin/Globulin Ratio 1.1 07/17/21 08:40: Bedside Glucose (Misc Panel) 260H 07/17/21 11:56: Bedside Glucose (Misc Panel) 278H 07/17/21 15:22: Thyroid Stimulating Hormone (TSH) 0.325L, Free Thyroxine Index 2.5, Thyroxine (T4) 6.7, Triiodothyronine (T3) Uptake 38 07/17/21 17:00: Bedside Glucose (Misc Panel) 297H CBC/BMP Laboratory Tests 07/16/21 23:51 07/17/21 08:36 FSBS Laboratory Tests Test 07/16/21 20:39 07/16/21 23:53 07/17/21 04:11 07/17/21 08:40 Range/Units Bedside Glucose (Misc Panel) 335 313 232 260 70-105 MG/DL Test 07/17/21 11:56 07/17/21 17:00 Range/Units Bedside Glucose (Misc Panel) 278 297 70-105 MG/DL Microbiology Microbiology 07/15/21 Blood Culture - Preliminary, Resulted No Growth after 48 hours. All Specime... 07/15/21 Respiratory Virus Panel (PCR) (ROSAMARIA) - Final, Complete 07/15/21 Blood Culture - Preliminary, Resulted No Growth after 48 hours. All Specime... Discharge Medications Scheduled Blood Sugar Diagnostic (Advanced Glucose Test Strips) 1 Each Strip, 1 STRIP XX ASDIRECTED Insulin Detemir (Levemir) 100 Unit/1 Ml Vial, 25 UNITS SC QAM Insulin Detemir (Levemir) 100 Unit/1 Ml Vial, 15 UNITS SC QHS Levothyroxine Sodium (Synthroid) 150 Mcg Tablet, 150 MCG PO DAILY, (Reported) Metformin HCl (Metformin HCl ER) 750 Mg Tab.er.24h, 750 MG PO BID Multivitamin,Therapeutic (Thera-Tabs) 1 Each Tablet, 1 TAB PO DAILY, (Reported) Allergies Coded Allergies: No Known Allergies (Verified , 01/12/21) SYED BROWN DO Jul 17, 2021 18:48
[2021-07-18] MEDS ORDERED: LEVOTHYROXINE 150MCG TABLET (0.15MG) PO SCH (06:00)
== END 2021-07-17 17:36 | DRG 420 ==
LOC: EDBD 16:21 → M ED 16:21 → M ED INP 20:09 → ENRESERV 20:37 → M ICU 21:05 → M PCU 07-16 19:48
PROVIDERS: ADMIT Family Medicine; ATTEND Internal Medicine
DX: E11.10 Type 2 diabetes mellitus with ketoacidosis without coma (principal); F20.9 Schizophrenia, unspecified; E11.65 Type 2 diabetes mellitus with hyperglycemia; E03.9 Hypothyroidism, unspecified; Z79.899 Other long term (current) drug therapy

== ENCOUNTER 2021-07-17 16:15 | Inpatient (IN) | payer OTHER ==
[~2021-07-17] VITALS: Ht 182.9 cm; Wt 95.8 kg
[~2021-07-17 16:15] MED LIST changes: +THERTAB52 PO
[2021-07-17] MEDS ORDERED: MOM 30ML SUSPENSION UDC PO PRN (16:30)
[2021-07-17] MEDS ORDERED: GLUCOSE 4GM CHEW TABLET PO PRN (16:30)
[2021-07-17] MEDS ORDERED: MAALOX 30 ML SUSP *UDC PO PRN (16:30)
[2021-07-17] MEDS ORDERED: GLUCAGON INJ 1MG VIAL SC PRN (16:30)
[2021-07-17] MEDS ORDERED: OLANZapine ORAL DISINTEGRATING TAB 5MG PO PRN (16:30)
[2021-07-17 17:34] VITALS: BP 129/85
[2021-07-17] MEDS ORDERED: HOME MED LIST COMPLETE! XX SCH (17:45)
[2021-07-17] MEDS: HumaLOG INSULIN (NovoLOG) PER UNIT SC SCH ×2 (18:33→22:54)
[2021-07-17] MEDS ORDERED: LEVEMIR (INSULIN DETEMIR) 1 UNITS/0.01ML SC SCH (21:00)
[2021-07-17] MEDS: traZODone 50 MG TAB PO PRN (22:40)
[2021-07-18 06:00] VITALS: BP 121/70
[2021-07-18] MEDS: HumaLOG INSULIN (NovoLOG) PER UNIT SC SCH ×4 (06:45→21:45)
[2021-07-18] MEDS: LEVOTHYROXINE 150MCG TABLET (0.15MG) PO SCH (06:46)
[2021-07-18] MEDS: haloperidoL 5 MG TAB PO SCH ×2 (09:00→21:43)
[2021-07-18] MEDS ORDERED: LEVEMIR (INSULIN DETEMIR) 1 UNITS/0.01ML SC SCH (09:00)
[2021-07-18] MEDS: OMEPRAZOLE 20 MG CAP PO SCH (09:27)
--- NOTE | 2021-07-18 10:29 | MHCR ---
CRITICAL ACCESS HOSPITAL CONSULTATION DATE: 07/17/2021 HISTORY OF PRESENT ILLNESS: This is a 45-year-old man with a history of prior treatment for schizophrenia according to a hospitalization at [facility] that occurred in 2011. The patient had no insight throughout his hospitalization. He finally took medications when they said they were going to do Treatment Over Objection and he was discharged on medication. When I asked him today the patient said he was not even aware that he has ever been diagnosed with schizophrenia and he has never taken any medications. So the reason why I was consulted today was because he was admitted in diabetic ketoacidosis and he does not believe that he is diabetic or needs insulin. The patient has had multiple admissions over the past few years; he had one in December and one in January of this year also with diabetic ketoacidosis so when I talk to him today he tells me that the reason why he was hospitalized was "I had extreme fatigue." He tells me that he is not sure why he was having the fatigue, but he says that a doctor in the hospital "manipulated something and I'm feeling better now." So I told him I was looking at the records and that the doctor had given him insulin and he said that he did not believe he was given insulin or that he needs insulin. 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 MENTAL STATUS EXAM: This patient is alert and oriented times 3. He was pleasant and cooperative though he did start to get agitated towards the end when I told him that we were going to transfer him to the Psychiatric Unit. He was verbally spontaneous. There is no formal thought disorder noted. He said his mood was fine. His affect appeared to be appropriate to his mood. He definitely is having grandiose delusions and he is having auditory hallucinations. He is suicidal or homicidal. Concentration is fair. Memory appeared to be grossly intact. Insight and judgment is poor. DIAGNOSES: 1. Schizophrenia. 2. Rule out bipolar disorder manic. TREATMENT PLAN: At this point the patient is acutely psychotic probably chronically psychotic, but the concern at this point is that he is very delusional about being the doctor and has no insight about the dangers of being diabetic and the multiple episodes of diabetic ketoacidosis that he has had and basically states that he is not diabetic, that he is not going to take any medications he's just going to do diet control he says when he gets discharged. Therefore I feel that the patient is an acute danger to himself and we will transfer him to the Psychiatric Unit for further evaluation and treatment.
[2021-07-18] MEDS ORDERED: BENZTROPINE 0.5 MG TAB PO PRN (14:20)
[2021-07-18] MEDS: ACETAMINOPHEN TAB 650MG DOSE (2X325MG) PO PRN (16:16)
--- NOTE | 2021-07-18 17:01 | HPEPDOC ---
General Date of Admission Jul 17, 2021 at 17:34 Date of Service: Jul 18, 2021 Chief Complaint The patient is a 45-year-old male admitted with a reason for visit of Schizophrenia. Source: Patient Exam Limitations: Clinical conditions History of Present Illness Patient is 45 years old male no past medical history of schizophrenia, hypothyroidism, type 2 diabetes was transferred to mental health unit from the general floor. Initially patient was admitted to the [facility] with ketoacidosis. He did not believe that he has a diabetes. Psych team evaluated him and recommended transferring to mental health unit. During my interview patient denied fever, chills, nausea vomiting, diarrhea or dysuria. Home Medications Scheduled Blood Sugar Diagnostic (Advanced Glucose Test Strips) 1 Each Strip, 1 STRIP XX ASDIRECTED Insulin Detemir (Levemir) 100 Unit/1 Ml Vial, 25 UNITS SC QAM Insulin Detemir (Levemir) 100 Unit/1 Ml Vial, 15 UNITS SC QHS Levothyroxine Sodium (Synthroid) 150 Mcg Tablet, 150 MCG PO DAILY, (Reported) Metformin HCl (Metformin HCl ER) 750 Mg Tab.er.24h, 750 MG PO BID Multivitamin,Therapeutic (Thera-Tabs) 1 Each Tablet, 1 TAB PO DAILY, (Reported) Allergies Coded Allergies: No Known Allergies (Verified , 01/12/21) Past Medical History Medical History Diabetic ketoacidosis/type 2 diabetes Schizophrenia Hypothyroidism Family History I personally reviewed family history and found not pertinent Social History * Smoker: Denies Alcohol: Denies Drugs: denies A-FIB/CHADSVASC A-FIB History Current/History of A-Fib/PAF?: No Current PO Anticoag Therapy: No Review of Systems Constitutional: Denies: Chills Eyes: Denies: Pain ENT: Denies: Head Aches Skin: Denies: Rash, Lesions Pulmonary: Denies: Dyspnea Cardiovascular: Denies: Chest Pain Gastrointestinal: Denies: Nausea Genitourinary: Denies: Dysuria Hematologic: Denies: Bruising Musculoskeletal: Denies: Neck Pain Neurological: Denies: Weakness Psych: Reports: Mood Normal Physical Examination General Exam: Positive: Alert, Cooperative Eye Exam: Positive: PERRLA ENT Exam: Positive: Atraumatic Neck Exam: Positive: Supple; Negative: JVD Chest Exam: Positive: Clear to auscultation Heart Exam: Positive: Rate Normal Telemetry: Positive: No significant arrhythmia Abdomen Exam: Positive: Normal bowel sounds Extremity Exam: Negative: Clubbing, Cyanosis Skin Exam: Positive: Nl turgor and temperature Neuro Exam: Positive: Normal Gait Psych Exam: Positive: Oriented x 3 Vital Signs Vital Signs Date Time Temp Pulse Resp B/P (MAP) Pulse Ox O2 Delivery O2 Flow Rate FiO2 07/18/21 06:00 97.4 91 21 121/70 (87) 07/17/21 17:34 99 Room Air Laboratory Data Labs 24H Laboratory Tests 2 07/17/21 18:19: Bedside Glucose (Misc Panel) 330H 07/17/21 22:46: Bedside Glucose (Misc Panel) 240H 07/18/21 06:14: Bedside Glucose (Misc Panel) 134H 07/18/21 12:00: Bedside Glucose (Misc Panel) 280H 07/18/21 16:18: Bedside Glucose (Misc Panel) 252H Assessment/Plan Patient is 45 years old male no past medical history of schizophrenia, hypothyroidism, type 2 diabetes was transferred to mental health unit from the general floor. Initially patient was admitted to the [facility] with ketoacidosis. He did not believe that he has a diabetes. Psych team evaluated him and recommended transferring to mental health unit. During my interview patient denied fever, chills, nausea vomiting, diarrhea or dysuria. Problems (1) Hypothyroidism Status: Chronic Problem Text: Continue levothyroxine (2) Uncontrolled diabetes mellitus Status: Acute Problem Text: Detemir twice daily. I increased the dose of detemir to better control glucose level Insulin sliding scale Diabetes diet (3) Schizophrenia Status: Chronic Problem Text: Defer treatment to psych team Plan / VTE VTE Prophylaxis Ordered?: No VTE Exclusion Mechanical Proph: Low Risk for VTE SYED BROWN DO Jul 18, 2021 17:01
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
[2021-07-18 19:23] VITALS: BP 116/72
[2021-07-18] MEDS: LEVEMIR (INSULIN DETEMIR) 1 UNITS/0.01ML SC SCH (21:45)
[2021-07-19 06:33] VITALS: BP 111/65
[2021-07-19] MEDS: LEVOTHYROXINE 150MCG TABLET (0.15MG) PO SCH (06:55)
[2021-07-19] MEDS: HumaLOG INSULIN (NovoLOG) PER UNIT SC SCH ×4 (06:59→20:51)
[2021-07-19] MEDS: LEVEMIR (INSULIN DETEMIR) 1 UNITS/0.01ML SC SCH ×2 (09:49→20:54)
[2021-07-19] MEDS: haloperidoL 5 MG TAB PO SCH ×2 (09:50→20:51)
[2021-07-19] MEDS: OMEPRAZOLE 20 MG CAP PO SCH (09:50)
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
[2021-07-19] MEDS: ACETAMINOPHEN TAB 650MG DOSE (2X325MG) PO PRN (11:45)
[2021-07-19 16:14] VITALS: BP 100/60
[2021-07-20] MEDS: LEVOTHYROXINE 150MCG TABLET (0.15MG) PO SCH (05:45)
[2021-07-20 06:18] VITALS: BP 153/72
[2021-07-20] MEDS: HumaLOG INSULIN (NovoLOG) PER UNIT SC SCH ×4 (06:38→21:00)
[2021-07-20] MEDS: haloperidoL 5 MG TAB PO SCH ×2 (09:00→21:00)
[2021-07-20] MEDS: OMEPRAZOLE 20 MG CAP PO SCH (10:15)
[2021-07-20] MEDS: LEVEMIR (INSULIN DETEMIR) 1 UNITS/0.01ML SC SCH ×2 (10:16→22:04)
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
[2021-07-20 19:14] VITALS: BP 133/86
[2021-07-20] MEDS: ACETAMINOPHEN TAB 650MG DOSE (2X325MG) PO PRN (22:03)
[2021-07-21] MEDS: LEVOTHYROXINE 150MCG TABLET (0.15MG) PO SCH (05:57)
[2021-07-21] MEDS: HumaLOG INSULIN (NovoLOG) PER UNIT SC SCH ×4 (07:05→21:00)
[2021-07-21 07:07] VITALS: BP 128/88
[2021-07-21] MEDS: OMEPRAZOLE 20 MG CAP PO SCH (08:41)
[2021-07-21] MEDS: ACETAMINOPHEN TAB 650MG DOSE (2X325MG) PO PRN ×2 (08:44→21:57)
[2021-07-21] MEDS: haloperidoL 5 MG TAB PO SCH ×4 (08:44→22:06)
[2021-07-21] MEDS: LEVEMIR (INSULIN DETEMIR) 1 UNITS/0.01ML SC SCH ×2 (08:54→21:56)
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
[2021-07-21 19:04] VITALS: BP 131/79
[2021-07-21] MEDS: traZODone 50 MG TAB PO PRN (22:01)
[2021-07-22] MEDS: LEVOTHYROXINE 150MCG TABLET (0.15MG) PO SCH (06:08)
[2021-07-22 06:28] VITALS: BP 126/82
[2021-07-22] MEDS: HumaLOG INSULIN (NovoLOG) PER UNIT SC SCH ×4 (06:54→21:00)
[2021-07-22] MEDS: haloperidoL 5 MG TAB PO SCH ×2 (09:00→21:26)
[2021-07-22] MEDS: OMEPRAZOLE 20 MG CAP PO SCH (09:31)
[2021-07-22] MEDS: ACETAMINOPHEN TAB 650MG DOSE (2X325MG) PO PRN ×2 (09:31→21:26)
[2021-07-22] MEDS: LEVEMIR (INSULIN DETEMIR) 1 UNITS/0.01ML SC SCH ×2 (09:31→21:26)
[2021-07-22] MEDS: traZODone 50 MG TAB PO PRN (21:26)
[2021-07-22 22:00] VITALS: BP 124/87
[2021-07-23] MEDS: LEVOTHYROXINE 150MCG TABLET (0.15MG) PO SCH (05:42)
[2021-07-23 06:34] VITALS: BP 111/68
[2021-07-23] MEDS: HumaLOG INSULIN (NovoLOG) PER UNIT SC SCH ×4 (06:57→20:47)
[2021-07-23] MEDS: haloperidoL 5 MG TAB PO SCH ×2 (09:00→20:48)
[2021-07-23] MEDS: OMEPRAZOLE 20 MG CAP PO SCH (09:49)
[2021-07-23] MEDS: LEVEMIR (INSULIN DETEMIR) 1 UNITS/0.01ML SC SCH ×2 (09:50→20:47)
[2021-07-23] MEDS: ACETAMINOPHEN TAB 650MG DOSE (2X325MG) PO PRN (09:54)
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
[2021-07-23 16:36] VITALS: BP 122/58
[2021-07-23] MEDS ORDERED: IBUPROFEN 600MG TAB PO PRN ×2 (16:50)
[2021-07-23 17:18] VITALS: BP 158/82
--- NOTE | 2021-07-23 18:25 | IPNPDOC ---
Text Note Date of Service The patient was seen on 07/23/21. NOTE I have been asked to see with the patient today. Patient complains of right sided molar tooth pain of mandible. Patient reported that it is painful to chew and the pain radiated to his temporal area. Patient reported that he recently broke his molar tooth. On physical examination patient has broken molar tooth of the right side of the mandible. No swelling or inflammation around, no redness. Unlikely patient has tooth infection which cause of his symptoms. Most likely his tooth area became hypersensitive. Continue pain management with Tylenol and tramadol. I discontinued ibuprofen Patient will need to see dentist in the outpatient settings. VS,Fishbone, I+O VS, Fishbone, I+O Vital Signs Date Time Temp Pulse Resp B/P (MAP) Pulse Ox O2 Delivery O2 Flow Rate FiO2 07/23/21 17:18 98.6 76 16 158/82 (107) 98 Room Air SYED BROWN Jul 23, 2021 18:25
[2021-07-23] MEDS: traZODone 50 MG TAB PO PRN (20:48)
[2021-07-23] MEDS: traMADol 50 MG TAB PO PRN (20:50)
[2021-07-24] MEDS: LEVOTHYROXINE 150MCG TABLET (0.15MG) PO SCH (05:59)
[2021-07-24 06:28] VITALS: BP 118/82
[2021-07-24] MEDS: HumaLOG INSULIN (NovoLOG) PER UNIT SC SCH ×4 (06:40→21:18)
[2021-07-24] MEDS: traMADol 50 MG TAB PO PRN ×2 (06:43→17:27)
[2021-07-24] MEDS: OMEPRAZOLE 20 MG CAP PO SCH (08:16)
[2021-07-24] MEDS: haloperidoL 5 MG TAB PO SCH ×2 (08:16→21:10)
[2021-07-24] MEDS: LEVEMIR (INSULIN DETEMIR) 1 UNITS/0.01ML SC SCH ×2 (08:16→21:10)
[2021-07-24] MEDS: ACETAMINOPHEN TAB 650MG DOSE (2X325MG) PO PRN ×2 (08:51→18:51)
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
[2021-07-24 17:30] VITALS: BP 117/62
[2021-07-24] MEDS: traZODone 50 MG TAB PO PRN (21:18)
[2021-07-25] MEDS: traMADol 50 MG TAB PO PRN ×2 (02:20→16:51)
[2021-07-25] MEDS: LEVOTHYROXINE 150MCG TABLET (0.15MG) PO SCH (06:27)
[2021-07-25] MEDS: HumaLOG INSULIN (NovoLOG) PER UNIT SC SCH ×4 (06:36→21:00)
[2021-07-25 06:49] VITALS: BP 138/96
[2021-07-25] MEDS: ACETAMINOPHEN TAB 650MG DOSE (2X325MG) PO PRN ×2 (06:52→21:10)
[2021-07-25] MEDS: LEVEMIR (INSULIN DETEMIR) 1 UNITS/0.01ML SC SCH ×2 (07:41→20:33)
[2021-07-25] MEDS: OMEPRAZOLE 20 MG CAP PO SCH (07:41)
[2021-07-25] MEDS: haloperidoL 5 MG TAB PO SCH (07:42)
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
[2021-07-25 16:56] VITALS: BP 134/95
[2021-07-25] MEDS: traZODone 50 MG TAB PO PRN (20:33)
[2021-07-26] MEDS: LEVOTHYROXINE 150MCG TABLET (0.15MG) PO SCH (06:56)
[2021-07-26] MEDS: HumaLOG INSULIN (NovoLOG) PER UNIT SC SCH ×4 (06:57→22:05)
[2021-07-26 07:23] VITALS: BP 111/71
[2021-07-26] MEDS: OMEPRAZOLE 20 MG CAP PO SCH (09:52)
[2021-07-26] MEDS: LEVEMIR (INSULIN DETEMIR) 1 UNITS/0.01ML SC SCH ×2 (09:52→22:04)
[2021-07-26] MEDS: ACETAMINOPHEN TAB 650MG DOSE (2X325MG) PO PRN ×2 (10:07→22:42)
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
[2021-07-26] MEDS: traMADol 50 MG TAB PO PRN (15:57)
[2021-07-26] MEDS: haloperidoL 5 MG TAB PO SCH (22:04)
[2021-07-26] MEDS: traZODone 50 MG TAB PO PRN (22:06)
[2021-07-27] MEDS: LEVOTHYROXINE 150MCG TABLET (0.15MG) PO SCH (06:00)
[2021-07-27 07:07] VITALS: BP 110/66
[2021-07-27] MEDS: HumaLOG INSULIN (NovoLOG) PER UNIT SC SCH ×4 (07:17→21:00)
[2021-07-27] MEDS: LEVEMIR (INSULIN DETEMIR) 1 UNITS/0.01ML SC SCH ×2 (08:05→21:06)
[2021-07-27] MEDS: OMEPRAZOLE 20 MG CAP PO SCH (08:06)
[2021-07-27] MEDS ORDERED: TUBERCULIN PPD 5 UNITS/0.1 ML ID ONE ×2 (08:45→12:00)
[2021-07-27] MEDS ORDERED: **PENDING PPD ENTRY XX SCH (09:00)
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
[2021-07-27] MEDS: ACETAMINOPHEN TAB 650MG DOSE (2X325MG) PO PRN (15:46)
[2021-07-27 16:37] VITALS: BP 121/90
[2021-07-27] MEDS: traZODone 50 MG TAB PO PRN (21:06)
[2021-07-27] MEDS: haloperidoL 5 MG TAB PO SCH (21:06)
[2021-07-27] MEDS: traMADol 50 MG TAB PO PRN (21:07)
[2021-07-28] MEDS: LEVOTHYROXINE 150MCG TABLET (0.15MG) PO SCH (06:18)
[2021-07-28 06:26] VITALS: BP 137/94
[2021-07-28] MEDS: HumaLOG INSULIN (NovoLOG) PER UNIT SC SCH ×4 (06:33→20:59)
[2021-07-28] MEDS: LEVEMIR (INSULIN DETEMIR) 1 UNITS/0.01ML SC SCH ×2 (07:28→20:58)
[2021-07-28] MEDS: OMEPRAZOLE 20 MG CAP PO SCH (07:29)
[2021-07-28 16:42] VITALS: BP 123/90
[2021-07-28] MEDS: haloperidoL 5 MG TAB PO SCH (20:57)
[2021-07-28] MEDS: traMADol 50 MG TAB PO PRN (21:03)
[2021-07-28] MEDS: ACETAMINOPHEN TAB 650MG DOSE (2X325MG) PO PRN (22:02)
[2021-07-29] MEDS: LEVOTHYROXINE 150MCG TABLET (0.15MG) PO SCH (06:11)
[2021-07-29 06:20] VITALS: BP 122/89
[2021-07-29] MEDS: HumaLOG INSULIN (NovoLOG) PER UNIT SC SCH ×4 (06:44→21:00)
[2021-07-29] MEDS: OMEPRAZOLE 20 MG CAP PO SCH (08:02)
[2021-07-29] MEDS: LEVEMIR (INSULIN DETEMIR) 1 UNITS/0.01ML SC SCH ×2 (08:08→22:16)
[2021-07-29] MEDS ORDERED: PPD DOCUMENTATION ENTRY MISC XX SCH (10:00)
[2021-07-29] MEDS ORDERED: PPD DOCUMENTATION ENTRY MISC XX ONE (12:00)
[2021-07-29 16:14] VITALS: BP 133/89
[2021-07-29 16:20] VITALS: BP 133/89
[2021-07-29] MEDS: haloperidoL 5 MG TAB PO SCH (22:16)
[2021-07-29] MEDS: traZODone 50 MG TAB PO PRN (22:16)
[2021-07-29] MEDS: ACETAMINOPHEN TAB 650MG DOSE (2X325MG) PO PRN (23:18)
[2021-07-30] MEDS: LEVOTHYROXINE 150MCG TABLET (0.15MG) PO SCH (05:32)
[2021-07-30] MEDS: HumaLOG INSULIN (NovoLOG) PER UNIT SC SCH ×4 (05:52→21:00)
[2021-07-30 06:18] VITALS: BP 138/83
[2021-07-30] MEDS: LEVEMIR (INSULIN DETEMIR) 1 UNITS/0.01ML SC SCH ×2 (09:00→21:00)
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
[2021-07-30] MEDS: OMEPRAZOLE 20 MG CAP PO SCH (09:54)
[2021-07-30] MEDS: ACETAMINOPHEN TAB 650MG DOSE (2X325MG) PO PRN ×2 (09:55→16:40)
[2021-07-30 17:38] VITALS: BP 132/82
[2021-07-30] MEDS: haloperidoL 5 MG TAB PO SCH (20:58)
[2021-07-30] MEDS: traMADol 50 MG TAB PO PRN (20:59)
[2021-07-30] MEDS: traZODone 50 MG TAB PO PRN (20:59)
[2021-07-31] MEDS: LEVOTHYROXINE 150MCG TABLET (0.15MG) PO SCH (06:04)
[2021-07-31] MEDS: HumaLOG INSULIN (NovoLOG) PER UNIT SC SCH ×4 (06:40→20:02)
[2021-07-31 06:50] VITALS: BP 117/75
[2021-07-31] MEDS: LEVEMIR (INSULIN DETEMIR) 1 UNITS/0.01ML SC SCH ×2 (09:00→20:02)
[2021-07-31] MEDS: OMEPRAZOLE 20 MG CAP PO SCH (09:20)
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
[2021-07-31] MEDS: ACETAMINOPHEN TAB 650MG DOSE (2X325MG) PO PRN (17:16)
[2021-07-31 19:13] VITALS: BP 136/78
[2021-07-31] MEDS: traZODone 50 MG TAB PO PRN (20:04)
[2021-07-31] MEDS: haloperidoL 5 MG TAB PO SCH (20:04)
[2021-07-31] MEDS: traMADol 50 MG TAB PO PRN (20:05)
[2021-08-01] MEDS: LEVOTHYROXINE 150MCG TABLET (0.15MG) PO SCH (05:33)
[2021-08-01 06:36] VITALS: BP 152/88
[2021-08-01] MEDS: HumaLOG INSULIN (NovoLOG) PER UNIT SC SCH ×4 (06:40→20:07)
[2021-08-01] MEDS: LEVEMIR (INSULIN DETEMIR) 1 UNITS/0.01ML SC SCH ×2 (09:00→20:07)
[2021-08-01] MEDS: OMEPRAZOLE 20 MG CAP PO SCH (09:37)
[2021-08-01] MEDS: ACETAMINOPHEN TAB 650MG DOSE (2X325MG) PO PRN (09:38)
--- NOTE | 2021-08-01 17:30 | MHIPN ---
[facility] PROGRESS NOTE DATE: 08/01/2021 VITAL SIGNS: Blood pressure 152/88, pulse 68, temperature 97.6. This is a video assessment. He is seen in the presence of staff. He is at the inpatient psychiatry unit, [facility]. I am at the clinic. I am seeing him as his clinician, Anais, is away today. CHIEF COMPLAINT: Says is doing okay. SUBJECTIVE: Seen for followup. Indicates has been doing okay. Says has been working on his diet and is awaiting his court date, which comes up in a couple of days, as he has applied for discharge. His blood sugar has been high today, in the 300s, fingersticks, and he says that since he went off insulin recently he has been working on his diet to attend to the high blood sugars. Says sleep is okay, as is appetite. MENTAL STATUS EXAMINATION: He is unkempt. He is somewhat guarded, possibly a little less so than when I saw him a couple days ago. Answers questions briefly, coherently. Some psychomotor retardation. Affect is restricted in range. Denies any suicidal thoughts. No homicidal ideas. Remains deluded. Cognition grossly intact. Judgment and insight remain compromised. ASSESSMENT: Schizophrenia versus schizoaffective disorder. PLAN: Continue current care, observations. Encourage participation in activities in the unit. Further recommendations will be made when he sees Anais Gordon tomorrow. He also awaits the court hearing in a couple of days. We will monitor his blood glucose and trend, and this may require intervention. The assessment took 15 minutes.
[2021-08-01 17:42] VITALS: BP 130/75
[2021-08-01] MEDS: haloperidoL 5 MG TAB PO SCH (20:06)
[2021-08-01] MEDS: traMADol 50 MG TAB PO PRN (20:07)
[2021-08-01] MEDS: traZODone 50 MG TAB PO PRN (20:08)
[2021-08-02] MEDS: LEVOTHYROXINE 150MCG TABLET (0.15MG) PO SCH (05:34)
[2021-08-02] MEDS: HumaLOG INSULIN (NovoLOG) PER UNIT SC SCH ×4 (05:50→20:03)
[2021-08-02 06:06] VITALS: BP 116/72
[2021-08-02] MEDS: OMEPRAZOLE 20 MG CAP PO SCH (07:48)
[2021-08-02] MEDS: ACETAMINOPHEN TAB 650MG DOSE (2X325MG) PO PRN ×2 (07:48→20:05)
[2021-08-02] MEDS: LEVEMIR (INSULIN DETEMIR) 1 UNITS/0.01ML SC SCH ×2 (07:50→20:03)
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
[2021-08-02 17:56] VITALS: BP 146/86
[2021-08-02] MEDS: haloperidoL 5 MG TAB PO SCH (20:03)
[2021-08-02] MEDS: traZODone 50 MG TAB PO PRN (20:03)
[2021-08-03] MEDS: LEVOTHYROXINE 150MCG TABLET (0.15MG) PO SCH (06:12)
[2021-08-03] MEDS: HumaLOG INSULIN (NovoLOG) PER UNIT SC SCH ×2 (06:31→12:00)
[2021-08-03 06:47] VITALS: BP 128/90
[2021-08-03] MEDS: LEVEMIR (INSULIN DETEMIR) 1 UNITS/0.01ML SC SCH (09:00)
[2021-08-03] MEDS: OMEPRAZOLE 20 MG CAP PO SCH (09:55)
[2021-08-03] MEDS: ACETAMINOPHEN TAB 650MG DOSE (2X325MG) PO PRN (10:03)
[2021-08-03] MEDS ORDERED: GLUC1TES2 XX (11:33)
[2021-08-03] MEDS ORDERED: OMEP-218 PO (11:33)
[2021-08-03] MEDS ORDERED: DEXT4TAB15 PO (11:33)
[2021-08-03] MEDS ORDERED: INSUHUMDS SC ×2 (11:33)
[2021-08-03] MEDS ORDERED: INSUDET SC ×2 (11:33)
[2021-08-03] MEDS ORDERED: TRAM50TA2 PO (11:33)
[2021-08-03] MEDS ORDERED: SYNT150T PO (11:33)
[2021-08-03] MEDS ORDERED: BENZ0.5T23 PO (11:33)
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
== END 2021-08-03 13:14 | disposition home or self-care (01) | DRG 750 ==
LOC: M PSY 17:34
PROVIDERS: ADMIT Psychiatry & Neurology Psychiatry; ATTEND Psychiatry & Neurology Psychiatry
DX: F20.0 Paranoid schizophrenia (principal); E11.65 Type 2 diabetes mellitus with hyperglycemia; Z91.14 Patient's other noncompliance with medication regimen; F10.10 Alcohol abuse, uncomplicated; E03.9 Hypothyroidism, unspecified; K03.81 Cracked tooth; Z79.4 Long term (current) use of insulin; Z79.899 Other long term (current) drug therapy

== ENCOUNTER 2023-01-25 05:16 | Emergency (ER) | payer OTHER ==
[~2023-01-25] VITALS: Ht 182.9 cm; Wt 92.3 kg
[~2023-01-25 05:16] MED LIST changes: +BENZ0.5T23 PO; -D31000TA2 PO; +DEXT4TAB15 PO; +INSUHUMDS SC; +OMEP-173 PO; -OMEP-218 PO; -OMEP10CA78 PO; +OMEP1CAP71 PO; +TRAM50TA2 PO; +VITA100093 PO
[2023-01-25 05:45] LABS: VENOUS BASE EXCESS -2.1 (-2.0-2.0); VENOUS HCO3 22.6 MEQ/L (23.0-27.0); VENOUS O2 SATURATION 97.8 % (60.0-80.0); VENOUS PARTIAL PRESSURE CO2 38.3 mmHg (38.0-50.0); VENOUS PARTIAL PRESSURE O2 103.1 mmHg (30.0-50.0); VENOUS PH 7.388 UNITS (7.330-7.430); VENOUS STANDARD HCO3 22.8 MEQ/L; VENOUS TOTAL CO2 23.7 MEQ/L (24.0-28.0)
[2023-01-25 05:59] LABS: BASO % 0.7 % (0.0-1.0); EOS # 0.2 10^3/uL (0.0-0.5); EOS % 3.6 % (0.0-3.0); HEMATOCRIT 38.7 % (42.0-52.0); HEMOGLOBIN 13.5 g/dl (13.5-17.5); LYMPH % 34.7 % (24.0-44.0); MEAN CORPUSCULAR HEMOGLOBIN 30.2 pg (27.0-33.0); MEAN CORPUSCULAR HGB CONC 34.9 g/dl (32.0-36.5); MEAN CORPUSCULAR VOLUME 86.6 fl (80.0-96.0); MONO # 0.6 10^3/uL (0.0-0.8); MONO % 9.6 % (2.0-8.0); NEUTROPHILS % 51.1 % (36.0-66.0); PLATELET COUNT, AUTOMATED 299 10^3/uL (150-450); RED BLOOD COUNT 4.47 10^6/uL (4.30-6.10); WHITE BLOOD COUNT 5.8 10^3/uL (4.0-10.0)
[2023-01-25] MEDS ORDERED: NS 1,000 ML IV ONE (06:10)
[2023-01-25 06:13] LABS: LIPASE 31 U/L (12-53)
[2023-01-25 06:18] LABS: ALBUMIN 3.4 G/DL (3.2-5.2); ALKALINE PHOSPHATASE 78 U/L (46-116); ALT/SGPT 11 U/L (7.0-40); AST/SGOT < 8 U/L (<34); BILIRUBIN,DIRECT < 0.1 MG/DL (<0.4); BILIRUBIN,TOTAL 0.3 MG/DL (0.3-1.2); BLOOD UREA NITROGEN 12 MG/DL (9-23); CALCIUM LEVEL 8.5 MG/DL (8.5-10.1); CARBON DIOXIDE LEVEL 23 MMOL/L (20-31); CHLORIDE LEVEL 96 MMOL/L (98-107); CREATININE FOR GFR 0.54 MG/DL (0.70-1.30); GLOMERULAR FILTRATION RATE > 60.0 (>60); GLUCOSE, FASTING 518 MG/DL (60-100); POTASSIUM SERUM 4.1 MMOL/L (3.5-5.1); SODIUM LEVEL 130 MMOL/L (136-145); TOTAL PROTEIN 6.1 G/DL (5.7-8.2)
[2023-01-25 06:29] LABS: RSV AMPLIFICATION NEGATIVE (NEGATIVE)
[2023-01-25 06:33] LABS: OSMOLALITY SERUM 298 MOSM/KG (275-295)
[2023-01-25] MEDS ORDERED: HumuLIN R (REGULAR) INSULIN (NovoLIN R) **100U/ML** PER UNIT IV ONE (06:50)
[2023-01-25] MEDS ORDERED: ACETAMINOPHEN 325 MG TAB PO ONE (07:45)
[2023-01-25 08:00] LABS: HEMOGLOBIN A1c > 14.0 % (4.0-6.0)
[2023-01-25] MEDS ORDERED: INSU100I48 SQ (10:22)
[2023-01-25 10:30] VITALS: BP 125/72
== END 2023-01-25 10:49 | disposition home or self-care (01) ==
LOC: EDBD 05:16 → M ED 06:38
DX: E11.65 Type 2 diabetes mellitus with hyperglycemia (principal); Z91.199 Patient's noncompliance with other medical treatment and regimen due to unspecified reason; Z79.899 Other long term (current) drug therapy
CPT/HCPCS: 80048; 80076; 81001; 82010; 82803; 83036; 83690; 83930; 85025; 87631; 93005; 93041; 94760; 96374; 99285; J1815